=== PATIENT | female | born 1945 | race Caucasian/White ===

== ENCOUNTER → 2017-05-10 | Outpatient (CLI) | payer MEDICARE ==
--- NOTE | 2017-05-11 10:53 | MM ---
Reason for exam: screening (asymptomatic). Last mammogram was performed 1 year and 1 month ago. History: Patient is postmenopausal. Family history of breast cancer in mother at age 68. Physical Findings: A clinical breast exam by your physician is recommended on an annual basis and results should be correlated with mammographic findings. MG 3D Screening Mammo W/Cad Bilateral CC and MLO view(s) were taken. Prior study comparison: April 14, 2016, bilateral MG 3d screening mammo w/cad. March 25, 2014, bilateral MG screening mammo w CAD. No suspicious abnormality in the left breast. There is a 5mm asymmetry in the central right breast at middle depth. ASSESSMENT: Incomplete: need additional imaging evaluation, BI-RAD 0 RECOMMENDATION: Special view mammogram of the right breast. If lesion persists on supplemental views, image directed ultrasound is recommended. [facility] will attempt to contact patient to return for supplemental views and ultrasound if indicated.
== END | disposition home or self-care (01) ==
LOC: RADMAMWWP 12:54
PROVIDERS: ATTEND Family Medicine
DX: Z12.31 Encounter for screening mammogram for malignant neoplasm of breast (principal); Z80.3 Family history of malignant neoplasm of breast
CPT/HCPCS: 77063; 77067

== ENCOUNTER → 2017-05-13 | Outpatient (CLI) | payer MEDICARE ==
--- NOTE | 2017-05-13 14:09 | MM ---
Reason for exam: additional evaluation requested from abnormal screening. Last mammogram was performed less than 1 month ago. History: Patient is postmenopausal. Family history of breast cancer in mother at age 68. Physical Findings: Nurse did not find any significant physical abnormalities on exam. MG 3D Work Up W/Cad RT ML and spot compression MLO view(s) were taken of the right breast. Prior study comparison: May 10, 2017, bilateral MG 3d screening mammo w/cad. April 14, 2016, bilateral MG 3d screening mammo w/cad. There are scattered fibroglandular densities. There is no discrete abnormality. These results were verbally communicated with the patient and result sheet given to the patient on 05/13/17. ASSESSMENT: Negative, BI-RAD 1 RECOMMENDATION: Return to routine screening mammogram schedule for both breasts. Back on schedule.
== END | disposition home or self-care (01) ==
LOC: RADMAMWWP 13:19
PROVIDERS: ATTEND Family Medicine
DX: R92.8 Other abnormal and inconclusive findings on diagnostic imaging of breast (principal)
CPT/HCPCS: 77065; G0279

== ENCOUNTER → 2018-06-08 | Outpatient (CLI) | payer MEDICARE ==
--- NOTE | 2018-06-09 12:04 | MM ---
Reason for exam: screening (asymptomatic). Last mammogram was performed 1 year and 1 month ago. History: Patient is postmenopausal. Family history of breast cancer in mother at age 68. Physical Findings: A clinical breast exam by your physician is recommended on an annual basis and results should be correlated with mammographic findings. MG 3D Screening Mammo W/Cad Bilateral CC and MLO view(s) were taken. Prior study comparison: May 13, 2017, right breast MG 3d work up w/cad RT. May 10, 2017, bilateral MG 3d screening mammo w/cad. There are scattered fibroglandular densities. No significant changes when compared with prior studies. ASSESSMENT: Benign, BI-RAD 2 RECOMMENDATION: Routine screening mammogram of both breasts in 1 year.
== END | disposition home or self-care (01) ==
LOC: RADMAMWWP 12:37
PROVIDERS: ATTEND Family Medicine
DX: Z12.31 Encounter for screening mammogram for malignant neoplasm of breast (principal); Z80.3 Family history of malignant neoplasm of breast
CPT/HCPCS: 77063; 77067

== ENCOUNTER → 2019-06-11 | Outpatient (CLI) | payer MEDICARE ==
--- NOTE | 2019-06-12 10:01 | MM ---
Reason for exam: screening (asymptomatic). Last mammogram was performed 1 year ago. History: Patient is postmenopausal. Family history of breast cancer in mother at age 68. Physical Findings: A clinical breast exam by your physician is recommended on an annual basis and results should be correlated with mammographic findings. MG 3D Screening Mammo W/Cad Bilateral CC and MLO view(s) were taken. Prior study comparison: June 08, 2018, bilateral MG 3d screening mammo w/cad. May 13, 2017, right breast MG 3d work up w/cad RT. There are scattered fibroglandular densities. Finding: There is a 9 mm high density, circumscribed oval mass located 4-5 cm from the nipple in the middle position of the right breast consistent with possible cyst. ASSESSMENT: Incomplete: need additional imaging evaluation, BI-RAD 0 RECOMMENDATION: Ultrasound of the right breast. [facility] will attempt to contact patient to return for ultrasound.
== END | disposition home or self-care (01) ==
LOC: RADMAMWWP 09:24
PROVIDERS: ATTEND Family Medicine
DX: Z12.31 Encounter for screening mammogram for malignant neoplasm of breast (principal); Z80.3 Family history of malignant neoplasm of breast
CPT/HCPCS: 77063; 77067

== ENCOUNTER → 2019-06-20 | Outpatient (CLI) | payer MEDICARE ==
--- NOTE | 2019-06-20 12:07 | USB ---
Reason for exam: additional evaluation requested from abnormal screening. History: Patient is postmenopausal. Family history of breast cancer in mother at age 68. Physical Findings: Nurse did not find any significant physical abnormalities on exam. US Breast Workup Limited RT Right limited breast ultrasound including focal area of concern, retroareolar and axilla demonstrates a 0.6 x 0.9 x 0.6cm hypoechoic lesion at 3 o'clock. These results were verbally communicated with the patient and result sheet given to the patient on 06/20/19. ASSESSMENT: Suspicious, BI-RAD 4 RECOMMENDATION: Ultrasound core biopsy of the right breast. Called Dr. Vergara's office with mammographic findings and has scheduled an appointment for the patient for 08/08/19 at 4:[address] Lucas. Biopsy scheduled for 07/09/19 at 2:20. PRELIMINARY REPORT CALLED AND FAXED TO DR. LUCAS ON 06/20/19.
== END | disposition home or self-care (01) ==
LOC: RADUSWWP 10:05
PROVIDERS: ATTEND Family Medicine
DX: R92.8 Other abnormal and inconclusive findings on diagnostic imaging of breast (principal)

== ENCOUNTER → 2019-10-12 | Outpatient (CLI) | payer MEDICARE ==
[2019-10-12 13:11] VITALS: BP 143/67; PULSE 55; RESP 20; TEMP 98.6
--- NOTE | 2019-10-12 14:02 | P.GSHP ---
History of Present Illness H&P Date: 10/12/19 Chief Complaint: Abnormal mammogram and ultrasound right breast Ana is a 74-year-old white female who presents for breast evaluation for Dr. Vergara. She underwent a bilateral mammogram in May 2019 which revealed a 9 mm hyperdensity circumscribed mass 45 cm from the nipple in the midportion of the right breast. No lesions of concern were noted in the left breast. An ultrasound of the right breast was recommended and performed on 220 . This revealed a 0.9 cm hypoechoic lesion at 3:00 this was considered to be suspicious and ultrasound-guided core biopsy of the right breast was recommended. The patient herself does not complain of any lumps masses or nodules in her breast. She is not complaining of any trauma or infection in the breast. She has not had any recent nipple discharge or changes. She is not complaining of any pain in her breasts. Caffeine: tea every morning Nicotine: Negative smoking, second hand smoke: smokes Theophylline: weekly Family History: mother: breast cancer father: bowel cancer Hormonal History: menarche: 12 , breast fed: none, first born at 22 menopasue: 50 BCP: none hormones: none Surgical history: 1. Appendectomy 2. Cholecystectomy 3. Total abdominal hernia surgeries 4. Right total knee replacement Medical history: none Social History: smoke: second hand smoke alcohol: none drugs: none - Constitutional Constitutional: Denies chills, Denies fever - EENT Eyes: denies blurred vision, denies pain Ears: deny: decreased hearing, tinnitus Ears, nose, mouth and throat: Denies headache, Denies sore throat - Breasts Breasts: bilateral: as per HPI - Cardiovascular Cardiovascular: Reports high blood pressure, Denies chest pain, Denies shortness of breath - Respiratory Respiratory: Denies cough, Denies 7 - Gastrointestinal Gastrointestinal: Denies abdominal pain, Denies diarrhea, Denies nausea, Denies vomiting - Genitourinary (Female) Genitourinary: Denies dysuria, Denies hematuria - Menstruation Menstruation: Reports postmenopausal - Musculoskeletal Comment: arthritis Musculoskeletal: Denies myalgias - Integumentary Integumentary: Denies pruritus, Denies rash - Neurological Neurological: Denies numbness, Denies weakness - Psychiatric Psychiatric: Denies anxiety, Denies depression - Endocrine Endocrine: Denies fatigue, Denies weight change - Hematologic/Lymphatic Comment: aspirin - Allergic/Immunologic Allergic/Immunologic: Reports as per HPI Past Medical History Past Medical History: Hyperlipidemia, Hypertension History of Any Multi-Drug Resistant Organisms: None Reported Past Surgical History: Appendectomy, Cholecystectomy, Hernia Repair, Orthopedic Surgery Past Anesthesia/Blood Transfusion Reactions: No Reported Reaction Past Psychological History: No Psychological Hx Reported Smoking Status: Never smoker Past Alcohol Use History: None Reported Past Drug Use History: None Reported Medications and Allergies Home Medications Medication Instructions Recorded Confirmed Type Aspirin [Adult Low Dose Aspirin EC] 81 mg PO DAILY 06/22/19 10/12/19 History Atenolol [Tenormin] 25 mg PO DAILY 06/22/19 10/12/19 History Cholecalciferol [Vitamin D3 (25 5,000 unit PO DAILY 06/22/19 10/12/19 History Mcg = 1000 Iu)] Naproxen Sodium 440 mg PO DAILY 06/22/19 10/12/19 History Simvastatin [Zocor] 20 mg PO DAILY 06/22/19 10/12/19 History Allergies Allergy/AdvReac Type Severity Reaction Status Date / Time No Known Allergies Allergy Verified 10/12/19 13:06 Surgical - Exam Vital Signs Temp Pulse Resp BP Pulse Ox 98.6 F 55 L 20 143/67 98 10/12/19 13:08 10/12/19 13:08 10/12/19 13:08 10/12/19 13:08 10/12/19 13:08 BMI 46 - General obese - Eyes normal ocular movement - ENT no hearing loss, no congestion - Neck no masses, trachea midline - Respiratory normal respiratory effort, clear to auscultation - Cardiovascular Rhythm: regular Heart Sounds: normal: S1, S2 - Abdomen Abdomen: soft, non tender, bowel sounds, no guarding, no rigid, no rebound - Integumentary normal turgor - Neurologic no disoriented, no combative - Musculoskeletal uses a cane - Psychiatric oriented to time, oriented to person, oriented to place, speech is normal, memory intact breast exam: BRA: 44DD inspection: bilateral grade 3 ptosis, breast slightly larger than left breast palpation: right breast: multipositional exam fibrocystic changes, no dominant masses or nodules of concern Right axilla: No adenopathy of concern Left breast: Tattooed butterfly and the breast, multiple positional exam no dominant mastoiditis of concern, fibrocystic changes Left axilla: No adenopathy of concern Results Mammogram and ultrasound results reviewed Assessment and Plan Assessment: Impression: 1. Abnormal right breast mammogram and ultrasound 2. Fibrocystic breast changes 3. Asymmetry of breast right slightly larger than the left 4. Family history of cancer 5. Hypertension 6. BMI 46 7. Arthritis left knee/uses cane Plan: 1. Ultrasound-guided core biopsy right breast 2. Follow-up after biopsy 3. Medical management of medical conditions CC: Dr. Vergara encounter 45 minutes, > 50 % of time in planning and counselling
== END | disposition home or self-care (01) ==
LOC: WWCWWP 12:44
PROVIDERS: ATTEND Surgery
DX: Z53.9 Procedure and treatment not carried out, unspecified reason (principal)

== ENCOUNTER → 2019-10-18 | Day surgery (SDC) | payer MEDICARE ==
[2019-10-18 12:18] VITALS: RESP 18; TEMP 98.6
--- NOTE | 2019-10-18 13:52 | USB ---
EXAMINATION TYPE: US biopsy breast VAD RT DATE OF EXAM: 10/18/2019 CLINICAL HISTORY: R92.8 ABN MAMMO. TECHNIQUE: Ultrasound guided vaccuum assisted core biopsy of right breast. COMPARISON: 06/20/2019 ultrasound FINDINGS: The ultrasound guided core biopsy procedure was explained to the patient. The risks, benefits, alternatives were discussed. An informed consent was then obtained. Timeout was performed. The patient was placed in supine positioning for imaging and for the procedure. The overlying skin was prepped with betadine and sterilely draped in usual sterile fashion. Lidocaine 1% was used as anesthetic into the skin and deeper breast tissue up to area of concern in the breast. A small skin mayi was made with surgical scalpel. Under ultrasound guidance, a 12-gauge vacuum assisted biopsy device was used to obtain 5 core samples. A coil biopsy clip was left in lesion. Good hemostasis was obtained with direct pressure. Discharge instructions were discussed with the patient. The patient will follow up with the referring physician for results. Postprocedure mammogram: The patient was transferred to mammography for physician ordered post procedure mammogram for clip placement verification. The clip is in the expected region of the biopsy. The patient tolerated the procedure well without any immediate complication. The patient was discharged to home in stable condition. IMPRESSION: 1. Successful ultrasound guided biopsy right breast. Recommendations: 1. Recommendations are pending pathology results. Pathology Results: Malignant RIGHT BREAST, SITE NOT OTHERWISE SPECIFIED (CORE BIOPSY): 1. Moderately differentiated infiltrating ductal carcinoma, at least 0.6 cm. 2. Immunocytochemical Estrogen and Progesterone receptor staining: Estrogen receptor..Positive (100% of tumor nuclei stained). Progesterone receptor..Positive (100% of tumor nuclei stained). 3. HER2 analysis by IHC.Negative, 1+. Recommendation Surgical consult of the right breast. [facility]
[2019-10-18 13:54] VITALS: BP 150/82; PULSE 57
--- NOTE | 2019-10-18 14:08 | MM ---
Reason for exam: additional evaluation requested from abnormal screening. Last mammogram was performed 4 months ago. History: Patient is postmenopausal. Family history of breast cancer in mother at age 68. MG Diagnostic Mammo RT Wo CAD CC and LM view(s) were taken of the right breast. Prior study comparison: June 11, 2019, bilateral MG 3d screening mammo w/cad. June 08, 2018, bilateral MG 3d screening mammo w/cad. ASSESSMENT: Post procedure mammogram for marker placement RECOMMENDATION: Surgical consultation of the right breast.
== END ==
LOC: RADUSWWP 11:41
PROVIDERS: ATTEND Surgery
DX: C50.911 Malignant neoplasm of unspecified site of right female breast (principal); Z17.0 Estrogen receptor positive status [ER+]; Z78.0 Asymptomatic menopausal state; Z80.3 Family history of malignant neoplasm of breast
CPT/HCPCS: 77065; 19083; A4648; J2001; 88305; 88341; 88342

== ENCOUNTER → 2019-10-26 | Outpatient (CLI) | payer MEDICARE ==
[2019-10-26 11:54] VITALS: BP 144/83; PULSE 50; RESP 20; TEMP 98.6
--- NOTE | 2019-10-26 11:54 | P.PN ---
Subjective Progress Note Date: 10/26/19 Principal diagnosis: stage 1A right breast cancer Ana is a 74-year-old white female who presented for breast evaluation for Dr. Vergara. She underwent a bilateral mammogram in May 2019 which revealed a 9 mm hyperdensity circumscribed mass 45 cm from the nipple in the midportion of the right breast. No lesions of concern were noted in the left breast. An ultrasound of the right breast was recommended and performed on 220 . This revealed a 0.9 cm hypoechoic lesion at 3:00 this was considered to be suspicious and ultrasound-guided core biopsy of the right breast was recommended. The patient herself does not complain of any lumps masses or nodules in her breast. She is not complaining of any trauma or infection in the breast. She has not had any recent nipple discharge or changes. She is not complaining of any pain in her breasts. She had an ultrasound core biopsy on 10-18-19 of the right breast. This revealed a moderately differentiated infiltrating ductal carcinoma. This is ER/OH positive HER-2/rohan negative. Tumor grade was not noted. This is a stage IA right breast cancer. Caffeine: tea every morning Nicotine: Negative smoking, second hand smoke: smokes Theophylline: weekly Family History: mother: breast cancer father: bowel cancer Hormonal History: menarche: 12 , breast fed: none, first born at 22 menopasue: 50 BCP: none hormones: none Surgical history: 1. Appendectomy 2. Cholecystectomy 3. Total abdominal hernia surgeries 4. Right total knee replacement Medical history: none Social History: smoke: second hand smoke alcohol: none drugs: none - Constitutional Constitutional: Denies chills, Denies fever - EENT Eyes: denies blurred vision, denies pain Ears: deny: decreased hearing, tinnitus Ears, nose, mouth and throat: Denies headache, Denies sore throat - Breasts Breasts: bilateral: as per HPI - Cardiovascular Cardiovascular: Reports high blood pressure, Denies chest pain, Denies shortness of breath - Respiratory Respiratory: Denies cough, - Gastrointestinal Gastrointestinal: Denies abdominal pain, Denies diarrhea, Denies nausea, Denies vomiting - Genitourinary (Female) Genitourinary: Denies dysuria, Denies hematuria - Menstruation Menstruation: Reports postmenopausal - Musculoskeletal Comment: arthritis Musculoskeletal: Denies myalgias - Integumentary Integumentary: Denies pruritus, Denies rash - Neurological Neurological: Denies numbness, Denies weakness - Psychiatric Psychiatric: Denies anxiety, Denies depression - Endocrine Endocrine: Denies fatigue, Denies weight change - Hematologic/Lymphatic Comment: aspirin - Allergic/Immunologic Allergic/Immunologic: Reports as per HPI Objective - Constitutional General appearance: Present: obese - EENT Eyes: Present: EOMI ENT: Present: hearing grossly normal - Neck Neck: Present: normal ROM - Respiratory Respiratory: bilateral: CTA - Cardiovascular Rhythm: regular Heart sounds: normal: S1, S2 - Integumentary Integumentary Comment(s): No evidence of infection at biopsy site, mild ecchymosis at biopsy site right breast Integumentary: Present: normal turgor - Musculoskeletal Musculoskeletal Comment(s): uses a cane Assessment and Plan Assessment: Impression: 1. Stage IA right breast cancer 2. Fibrocystic breast changes 3. uses a cane to walk Plan: 1. Right breast localization partial mastectomy, possible adjacent tissue transfer sentinel node injection, sentinel node biopsy possible axillary node dissection 2. Medical clearance from Dr. Vergara 3. Presentation of case at tumor board We have discussed the pathology. We've discussed surgical options for the breast which range from mastectomy plus or minus reconstruction to lumpectomy. The patient would prefer a lumpectomy. Used to breasts symmetrical with the contralateral side. We will therefore plan to do the procedure without a mastopexy. Risks and benefits of procedure discussed with the patient. Include but are not limited to bleeding, infection, reaction to the anesthetic. She understands and wishes to proceed. The sentinel node biopsy risks include bleeding, infection, reaction to the anesthetic. They also include possibility of lymphedema, numbness to the inner arm, or nerve injury. Again she understands and wishes to proceed. Cc: Dr. Vergara encounter 40 minutes, > 50% of time in planning and counselling
== END | disposition home or self-care (01) ==
LOC: WWCWWP 11:16
PROVIDERS: ATTEND Surgery
DX: Z53.9 Procedure and treatment not carried out, unspecified reason (principal)

== ENCOUNTER → 2019-12-14 | Outpatient (CLI) | payer MEDICARE ==
[2019-12-14 16:07] VITALS: BP 142/82; PULSE 53; RESP 20; TEMP 98.4
--- NOTE | 2019-12-14 16:23 | P.PN ---
Subjective Progress Note Date: 12/14/19 Principal diagnosis: stage IA right breast cancer Ana is a 74-year-old white female who presented for breast evaluation for Dr. Vergara. She underwent a bilateral mammogram in May 2019 which revealed a 9 mm hyperdensity circumscribed mass 45 cm from the nipple in the midportion of the right breast. No lesions of concern were noted in the left breast. An ultrasound of the right breast was recommended and performed on . This revealed a 0.9 cm hypoechoic lesion at 3:00 this was considered to be suspicious and ultrasound-guided core biopsy of the right breast was recommended. The patient herself does not complain of any lumps masses or nodules in her breast. She is not complaining of any trauma or infection in the breast. She has not had any recent nipple discharge or changes. She is not complaining of any pain in her breasts. She had an ultrasound core biopsy on 10-18-19 of the right breast. This revealed a moderately differentiated infiltrating ductal carcinoma. This is ER/MA positive HER-2/rohan negative. Tumor grade was not noted. This is a stage IA right breast cancer. Caffeine: tea every morning Nicotine: Negative smoking, second hand smoke: smokes Theophylline: weekly Family History: mother: breast cancer father: bowel cancer Hormonal History: menarche: 12 , breast fed: none, first born at 22 menopasue: 50 BCP: none hormones: none Surgical history: 1. Appendectomy 2. Cholecystectomy 3. Total abdominal hernia surgeries 4. Right total knee replacement Medical history: none Social History: smoke: second hand smoke alcohol: none drugs: none - Constitutional Constitutional: Denies chills, Denies fever - EENT Eyes: denies blurred vision, denies pain Ears: deny: decreased hearing, tinnitus Ears, nose, mouth and throat: Denies headache, Denies sore throat - Breasts Breasts: bilateral: as per HPI - Cardiovascular Cardiovascular: Reports high blood pressure, Denies chest pain, Denies shortness of breath - Respiratory Respiratory: Denies cough, - Gastrointestinal Gastrointestinal: Denies abdominal pain, Denies diarrhea, Denies nausea, Denies vomiting - Genitourinary (Female) Genitourinary: Denies dysuria, Denies hematuria - Menstruation Menstruation: Reports postmenopausal - Musculoskeletal Comment: arthritis Musculoskeletal: Denies myalgias - Integumentary Integumentary: Denies pruritus, Denies rash - Neurological Neurological: Denies numbness, Denies weakness - Psychiatric Psychiatric: Denies anxiety, Denies depression - Endocrine Endocrine: Denies fatigue, Denies weight change - Hematologic/Lymphatic Comment: aspirin - Allergic/Immunologic Allergic/Immunologic: Reports as per HPI Objective - Vital Signs Vital signs: Vital Signs Temp 98.4 F 12/14/19 16:04 Pulse 53 L 12/14/19 16:04 Resp 20 12/14/19 16:04 BP 142/82 12/14/19 16:04 Pulse Ox 97 12/14/19 16:04 Intake & Output 12/13/19 12/14/19 12/14/19 18:59 06:59 18:59 Weight 101.605 kg - Exam BMI 46.8 - Constitutional General appearance: Present: obese - EENT Eyes: Present: EOMI ENT: Present: hearing grossly normal - Neck Neck: Present: normal ROM - Respiratory Respiratory: bilateral: CTA - Cardiovascular Rhythm: regular Heart sounds: normal: S1, S2 - Gastrointestinal General gastrointestinal: Present: normal bowel sounds, soft - Integumentary Integumentary: Present: normal turgor - Musculoskeletal Musculoskeletal: Present: gait normal - Psychiatric Psychiatric: Present: A&O x's 3, appropriate affect, intact judgment & insight - Additional findings Additional findings: breast exam: BRA 44D inspection: bilateral ptosis grade 3 Palpation: Right breast: Multi-positional exam no dominant masses or nodules of concern, fibrocystic changes Right axilla: No adenopathy of concern Left breast: Tattoo, both positional exam no dominant mass lesions of concern Left axilla: No adenopathy of concern Assessment and Plan Assessment: Impression: 1. Right breast stage IA invasive ductal carcinoma 2 BMI 46.8 Plan: 1. Needle localization excisional lumpectomy right breast, sentinel node injection sentinel node biopsy possible axillary node dissection, possible adjacent tissue transfer 2. medical clearance Dr. Vergara Risk and benefits of the procedure discussed with the patient which include bleeding infection reaction to the anesthetic possible inability to resect the area if positive margins need for reexcision. The sentinel node biopsy and possible axillary node dissection risk and benefits also discussed bleeding and infection reaction to the anesthetic possible swelling of the arm, possible decreased sensation to the upper arm, possible injury to the thoracodorsal and long thoracic nerves. Patient understands and wishes to proceed. She was not interested in the mastectomy nor referral to plastic surgery. Cc: Dr. Vergara encounter 25 minutes, > 50% of time in planning and counselling
== END | disposition home or self-care (01) ==
LOC: WWCWWP 15:39
PROVIDERS: ATTEND Surgery
DX: C50.811 Malignant neoplasm of overlapping sites of right female breast (principal)
CPT/HCPCS: 99214

== ENCOUNTER 2019-12-25 07:15 | Day surgery (SDC) | payer MEDICARE ==
[2019-12-20 13:19] VITALS: BMI 45.9
[~2019-12-25 07:15] MED LIST: HEPARIN SODIUM,PORCINE 5,000 UNIT/ML 1 ML VIAL SQ ONE; Pre Op ABX Message 1 EACH MISC MISCELLANE ONE
[2019-12-25] MEDS ORDERED: LIDOCAINE 1% (10MG/ML) FOR IV START INTRADERMA PRN (07:41)
[2019-12-25] MEDS ORDERED: LACTATED RINGERS 1,000 ML IV SCH (07:41)
[2019-12-25] MEDS ORDERED: DEXAMETHASONE SOD PHOSPHATE 10 MG/ML 1 ML VIAL IV ONE (07:41)
[2019-12-25] MEDS ORDERED: ALPRAZolam 0.25 MG TAB PO ONE (07:55)
[2019-12-25] MEDS ORDERED: ALPRAZolam 0.25 MG TAB ONE (07:55)
[2019-12-25 07:58] VITALS: RESP 16
[2019-12-25] MEDS ORDERED: HEPARIN SODIUM,PORCINE 5,000 UNIT/ML 1 ML VIAL ONE (08:48)
[2019-12-25] MEDS ORDERED: ONDANSETRON 4 MG/2 ML VIAL ONE (08:48)
[2019-12-25] MEDS ORDERED: LIDOCAINE 1% INJ 10MG/ML (20 ML MDV) SQ ONE ×2 (09:01→12:28)
--- NOTE | 2019-12-25 09:28 | NM ---
EXAMINATION TYPE: NM sentinel node injection DATE OF EXAM: 12/25/2019 COMPARISON: NONE HISTORY: Right-sided breast cancer. TECHNIQUE AND FINDINGS: The procedure of sentinel lymph node injection was explained to the patient. The benefits, alternatives, and risks were discussed. An informed consent was then obtained. Overlying skin is cleaned with sterile alcohol. Following this, 535 uCi Tc99m Tilmanocept was inject ed in the upper outer aspect of the right nipple intradermally. The patient tolerated the procedure well without any immediate complication. The patient was kept in the radiology department for short stay after the procedure and then taken to surgery for surgical p rocedure what is presumed intraoperative gamma probe will be used for sentinel lymph node detection. IMPRESSION: Right breast radiotracer injection for sentinel node localization as above.
--- NOTE | 2019-12-25 10:25 | P.NAPBC ---
NAPBC Queries - NAPBC Queries Was patient's case review presented at [facility] tumor board? If no, comment.: Yes Was patient's pathology reviewed at [facility]? If no, comment.: Yes Was breast conservation surgery offered? If no, comment.: Yes Was sentinel node biopsy offered? If no, comment.: Yes Was diagnosis confirmed by percutaneous core biopsy? If no, comment.: Yes Is patient mastectomy patient?: No Was a preop referral to reconstructive surgeon offered?: No Clinical Stage: stage IA
[2019-12-25] MEDS ORDERED: fentaNYL (PF) 50 MCG/ML 2 ML AMP ONE (10:55)
[2019-12-25] MEDS ORDERED: LIDOCAINE 1% INJ 10MG/ML (20 ML MDV) ONE (10:55)
[2019-12-25] MEDS ORDERED: PROPOFOL 10 MG/ML 20 ML VIAL IV ONE (10:55)
[2019-12-25] MEDS ORDERED: MIDAZOLAM 2 MG/2 ML VIAL ONE (10:55)
[2019-12-25] MEDS ORDERED: SUCCINYLCHOLINE CHLORIDE 100 MG/5 ML SYR IV ONE (10:55)
[2019-12-25] MEDS ORDERED: METHYLENE BLUE 10 MG/ML (10 ML VIAL) INJ ONE (12:27)
[2019-12-25] MEDS ORDERED: LACTATED RINGERS 1,000 ML IV ONE (12:56)
--- NOTE | 2019-12-25 13:11 | P.OP ---
Date of Procedure: 12/25/19 Preoperative Diagnosis: Right breast invasive ductal carcinoma located at 6 o'clock position middle depth in the breast Postoperative Diagnosis: same Procedure(s) Performed: Lymphatic mapping with methylene blue, sentinel node biopsy, lumpectomy, onco-plastic tissue transfer Anesthesia: JUSTINA Surgeon: Roxanne Becerra Estimated Blood Loss (ml): 20 IV fluids (ml): 800 Pathology: other (brest tissue) Condition: stable Disposition: same day Indications for Procedure: right breast 6 0'clock invasive ductal cancer Operative Findings: fibrofatty breast tissue, cancer at 6 oclock position Description of Procedure: The pain is a 74-year-old white female who had a percutaneous biopsy revealing invasive ductal carcinoma near the 6 o'clock position of the right breast. After discussing risk and benefits she opted for a lumpectomy and sentinel node biopsy. Preoperatively radioactive material was injected in the periareolar area and the tumor was localized. The patient was brought to the operating room and following induction of anesthesia the neoprobe was used to identify the area of increased radioactivity in the right axilla. No increased activity was identified. Therefore 5 mL of half-strength methylene blue was injected in the periareolar region and the tissue was massaged. Following this the breast was prepped and draped in a sterile fashion. The sentinel node biopsy was performed initially. An incision was made in the axillary skin at the hairbearing area. Dissection was performed down into the axillary tissue. The tissue was very fibrofatty. No radioactive nor blue lymph node was identified. A palpable node was identified and removed. Pathologic confirmation that this was a lymph node was obtained. It did not appear suspicious. After assured that hemostasis was attained the deep tissues were closed using 3-0 Vicryl suture. This was after the area had been irrigated. The skin was closed with 4-0 Monocryl and Steri-Strips applied. The area of the breast a longitudinal an incision was made and carried around the needle. Skin was removed anteriorly and posteriorly dissection was performed onto the pectoralis muscle. After this had been performed and the specimen was removed the medial area appeared to be close and additional medial and superior margins were obtained. The tissue was painted for orientation. Radiograph revealed the area of concern had been removed. Titanium clips were placed. Dissection of the breast tissue immediately released 44 cm of tissue and laterally 33 cm of tissue. A total of 77 cm of breast tissue was mobil ized. The cavity was well irrigated. The medial and lateral tissue were brought together and closed using 3-0 Vicryl suture. The skin was reapproximated using 4-0 Monocryl. The patient tolerated the procedure in stable condition. All instrument and sponge counts were correct at the end of the case. The patient tolerated the procedure in stable condition.
--- NOTE | 2019-12-25 13:12 | MM ---
EXAMINATION TYPE: MG pre op needle loc RT, MG surgical specimen RT DATE OF EXAM: 12/25/2019 COMPARISON: Prior mammogram 06/19/2019 and older mammograms. CLINICAL HISTORY: Invasive ductal carcinoma on biopsy October 18, 2019. TECHNIQUE: Needle localization with wire placement and surgical excision of area of concern in the right breast. FINDINGS: The procedure of needle localization with wire placement and than surgical excision was explained to the patient. Benefits, alternatives, and risks were discussed. An informed consent was then obtained. The shortest pathway for procedure was chosen. Shortest pathway was inferior approach. The overlying skin was prepped and draped in usual sterile fashion. Lidocaine was used as anesthetic into the skin and subcutaneous tissue up to the level of area of concern. A 5 cm needle was used. It was placed via a inferior approach under mammographic guidance. Subsequent 90 degrees mammogram show the needle to be in satisfactory position relative to the targeted area. At this point, wire was placed and the needle was withdrawn. The wire was fixed to patient's skin. Images were marked for surgeon. The patient tolerated the procedure well without any immediate complication. The patient was kept in the radiology department for short stay after the procedure and then taken to surgery for surgical excision. Targeted biopsy clip and wire are identified in specimen mammogram. The patient was kept in hospital for short stay after the procedure and then discharged home in stable condition. IMPRESSION: Successful, uncomplicated needle localization with wire placement and surgical excision of targeted clip in the right breast, full pathology results to follow. Pathology Results: Malignant A. RIGHT AXILLARY LYMPH NODE: Lymph node with partial fat replacement, negative for metastasis. B. RIGHT AXILLARY LYMPH NODE: Lymph node with partial fat replacement, negative for metastasis. C. RIGHT BREAST, LUMPECTOMY: Invasive moderately differentiated ductal carcinoma (Grade 2) and intermediate grade DCIS, margins negative for malignancy. See Surgical Pathology Cancer Case Summary. D. RIGHT AXILLARY CONTENTS: Lymph node with partial fat replacement, negative for metastasis. E. RIGHT AXILLARY LYMPH NODE: Lymph node negative for metastasis. F. RIGHT BREAST, NEW SUPERIOR MARGIN: Benign breast with fibrocystic changes. Recommendation Surgical consult of the right breast. KAREN
--- NOTE | 2019-12-25 13:13 | P.DS ---
Providers Attending physician: Roxanne Becerra Primary care physician: Chadwick Vergara Plan - Discharge Summary Discharge Rx Participant: Yes New Discharge Prescriptions: No Action Cholecalciferol [Vitamin D3 (25 Mcg = 1000 Iu)] 5,000 unit PO DAILY Aspirin [Adult Low Dose Aspirin EC] 81 mg PO DAILY Simvastatin [Zocor] 20 mg PO HS atenoloL [Tenormin] 25 mg PO DAILY Naproxen Sodium [Aleve] 440 mg PO DAILY Cannabidiol (Cbd) [Epidiolex] 1 dose PO DAILY PRN PRN Reason: Pain Discharge Medication List Aspirin [Adult Low Dose Aspirin EC] 81 mg PO DAILY 06/22/19 [History] Cholecalciferol [Vitamin D3 (25 Mcg = 1000 Iu)] 5,000 unit PO DAILY 06/22/19 [History] Simvastatin [Zocor] 20 mg PO HS 06/22/19 [History] atenoloL [Tenormin] 25 mg PO DAILY 06/22/19 [History] Cannabidiol (Cbd) [Epidiolex] 1 dose PO DAILY PRN 12/20/19 [History] Naproxen Sodium [Aleve] 440 mg PO DAILY 12/20/19 [History] Follow up Appointment(s)/Referral(s): Roxanne Becerra MD [STAFF PHYSICIAN] - 1 Week Activity/Diet/Wound Care/Special Instructions: Do not drive until seen by Dr. Florian in 1 week The shower after 48 hours Wear bra at all times unless showering Discharge Disposition: HOME SELF-CARE
[2019-12-25 13:26] VITALS: TEMP 96.9
[2019-12-25] MEDS ORDERED: KETOROLAC 15 MG/ML 1 ML VIAL IVP ONE ×2 (13:54→13:55)
[2019-12-25] MEDS ORDERED: HYDROmorphone 0.5 MG/0.5 ML SYRINGE IVP ONE (13:56)
[2019-12-25 15:23] VITALS: BP 116/68; PULSE 63
== END 2019-12-25 16:02 | disposition home or self-care (01) ==
LOC: OR 07:15
PROVIDERS: ATTEND Surgery
DX: C50.811 Malignant neoplasm of overlapping sites of right female breast (principal); I10 Essential (primary) hypertension; E78.5 Hyperlipidemia, unspecified; Z79.82 Long term (current) use of aspirin; Z79.1 Long term (current) use of non-steroidal anti-inflammatories (NSAID); Z79.899 Other long term (current) drug therapy; Z90.49 Acquired absence of other specified parts of digestive tract; Z98.890 Other specified postprocedural states; Z17.0 Estrogen receptor positive status [ER+]; Z77.22 Contact with and (suspected) exposure to environmental tobacco smoke (acute) (chronic); Z96.651 Presence of right artificial knee joint; Z68.42 Body mass index [BMI] 45.0-49.9, adult; Z80.3 Family history of malignant neoplasm of breast; Z80.0 Family history of malignant neoplasm of digestive organs
CPT/HCPCS: 88305; 88307; 76098; 19281; 38792; 19301; 38525; A9520; J2250; J1644; J1100; J2405; J2001; Q9968; J3010; J1885; J0330; J2704; J1170

== ENCOUNTER → 2020-01-03 | Outpatient (CLI) | payer MEDICARE ==
[2020-01-03 14:37] VITALS: BP 153/85; PULSE 86; RESP 20; TEMP 98.4
--- NOTE | 2020-01-03 14:49 | P.PN ---
Progress Note - Text Progress Note Date: 01/03/20 Ana is a 74-year-old white female status post right breast lumpectomy and axillary node sampling. The right breast revealed a 1.2 cm invasive ductal carcinoma grade 2 ER/[place] positive HER-2/rohan negative G2. The margins were negative. The lymph nodes were all negative for cancer. She is doing well from the surgery. Physical Exam: Lungs: Clear Heart: Regular rate and rhythm Incision: Clean and dry breast and axilla Impression/Plan: 1. Patient status post lumpectomy stage IA right breast cancer 2. Follow-up medical oncology 3. Follow-up radiation oncology 4. Follow-up here in 4 months
== END | disposition home or self-care (01) ==
LOC: WWCWWP 14:16
PROVIDERS: ATTEND Surgery
DX: Z53.9 Procedure and treatment not carried out, unspecified reason (principal)

== ENCOUNTER → 2020-01-25 | Outpatient (CLI) | payer MEDICARE ==
[2020-01-25 14:56] VITALS: BP 121/70; PULSE 58; RESP 16; TEMP 98.3
--- NOTE | 2020-01-25 15:32 | P.PN ---
Subjective Progress Note Date: 01/25/20 Principal diagnosis: Seroma drained right breast at lumpectomy site Ana is a 74-year-old white female status post right breast lumpectomy and axillary node sampling. The right breast revealed a 1.2 cm invasive ductal carcinoma grade 2 ER/[place] positive HER-2/rohan negative G2. The margins were negative. The lymph nodes were all negative for cancer. She is doing well from the surgery. She states that yesterday she noticed some drainage from the lumpectomy site. She has not had any fever or chills. She states that now at this time she has a small opening in the incision site. There is minimal drainage at this point Objective - Vital Signs Vital signs: Vital Signs Temp 98.3 F 01/25/20 14:49 Pulse 58 L 01/25/20 14:49 Resp 16 01/25/20 14:49 BP 121/70 01/25/20 14:49 Pulse Ox 97 01/25/20 14:49 Intake & Output 01/24/20 01/25/20 01/25/20 18:59 06:59 18:59 Weight 99.79 kg - Exam BMI 46 - Constitutional General appearance: Present: obese - EENT Eyes: Present: EOMI ENT: Present: hearing grossly normal - Neck Neck: Present: normal ROM - Respiratory Respiratory: bilateral: CTA - Cardiovascular Rhythm: regular Heart sounds: normal: S1, S2 - Integumentary Integumentary Comment(s): Incision and lower breast with a small opening in the midportion of the incision no further drainage at this point - Musculoskeletal Musculoskeletal Comment(s): uses a cane - Psychiatric Psychiatric: Present: A&O x's 3, appropriate affect, intact judgment & insight - Additional findings Additional findings: Breasts: Right breast: Incision and inferior aspect of breast with small opening in the mid aspect of the incision the patient has no evidence of infection it appears that there was a seroma which drained spontaneously Assessment and Plan Assessment: Impression: 1. Patient status post lumpectomy for stage IA right breast cancer 2. Spontaneous drainage of seroma 3. Small opening at incision at lumpectomy site no evidence of active infection Plan: 1. Sutures to reinforce the incision 2. Lumpectomy cavity to be packed 3. Patient to follow-up in 2 weeks CC: Dr. Vergara
--- NOTE | 2020-01-25 15:34 | P.PCN ---
Date of Procedure: 01/25/20 Preoperative Diagnosis: Seroma cavity open at lumpectomy site Postoperative Diagnosis: same Procedure(s) Performed: Irrigation seroma cavity, reinforcement of incision Description of Procedure: The area of prior lumpectomy and the right breast at the inferior aspect was prepped using Betadine. 1% lidocaine was used to anesthetize the inferior and superior portion of the incision. Several 3-0 nylon sutures were placed to rein force the incision. The area which was opened was probed. The cavity was approximately 7 x 6 x 5 cm in size. This was well irrigated. It was packed using 1 inch plain gauze. The patient tolerated the procedure in stable condition. Impression: Draining seroma via open surgical incision site Plan: Irrigation of lumpectomy site Packing of lumpectomy site Follow-up Dr. Florian next week We will attempt to get home health care
== END | disposition home or self-care (01) ==
LOC: WWCWWP 14:30
PROVIDERS: ATTEND Surgery
DX: Z53.9 Procedure and treatment not carried out, unspecified reason (principal)

== ENCOUNTER → 2020-02-07 | Outpatient (CLI) | payer MEDICARE ==
[2020-02-07 12:44] VITALS: BP 132/86; PULSE 61; RESP 12; TEMP 98.1
--- NOTE | 2020-02-07 12:59 | P.PN ---
Progress Note - Text Progress Note Date: 02/07/20 Ana is a 74-year-old white female status post right breast lumpectomy and axillary node sampling. The right breast revealed a 1.2 cm invasive ductal carcinoma grade 2 ER/[place] positive HER-2/rohan negative G2. The margins were negative. The lymph nodes were all negative for cancer. She is doing well from the surgery. She states that she noticed some drainage from the lumpectomy site. She has not had any fever or chills. She had drainage of the seroma and now has a small opening in the incision site approximately 1 cm in size in the cavity is being packed. Physical exam: Incision clean and dry Sutures which were placed to reinforce the site are removed Impression: 1. Patient status post right breast lumpectomy and axillary node sampling 2. Open mid aspect of wound 3. No evidence of any infection 4. wound packing changed today Plan: 1. Wound to be packed daily 2. follow up with radiation oncology 3. follow up here in one month CC: Dr. Vergara
== END | disposition home or self-care (01) ==
LOC: WWCWWP 12:07
PROVIDERS: ATTEND Surgery
DX: Z53.9 Procedure and treatment not carried out, unspecified reason (principal)

== ENCOUNTER → 2020-02-22 | Outpatient (CLI) | payer MEDICARE ==
--- NOTE | 2020-02-22 15:14 | P.PN ---
Progress Note - Text Progress Note Date: 02/22/20 Ana is a 74-year-old white female status post right breast lumpectomy and axillary node sampling. The right breast revealed a 1.2 cm invasive ductal carcinoma grade 2 ER/[place] positive HER-2/rohan negative G2. The margins were negative. The lymph nodes were all negative for cancer. She is doing well from the surgery. She states that she noticed some drainage from the lumpectomy site. She has not had any fever or chills. She had drainage of the seroma and now has a small opening in the incision site approximately 1 cm in size in the cavity is being packed. Physical exam: Incision clean and dry; dimensions of wounds were 5.75 cm x 4.5 cm x 2 3/4 cm medially Sutures of 3-0 nylon were placed to reinforce the site Impression: 1. Patient status post right breast lumpectomy and axillary node sampling 2. Open mid aspect of wound 3. No evidence of any infection 4. wound packing changed today Plan: 1. Wound to be packed daily 2. follow up with radiation oncology 3. follow up here in three weeks
[2020-02-22 16:17] VITALS: BP 127/79; PULSE 51; RESP 20; TEMP 97.9
== END | disposition home or self-care (01) ==
LOC: WWCWWP 13:53
PROVIDERS: ATTEND Surgery
DX: Z53.9 Procedure and treatment not carried out, unspecified reason (principal)

== ENCOUNTER → 2020-03-13 | Outpatient (CLI) | payer MEDICARE ==
[2020-03-13 14:15] VITALS: BP 148/70; PULSE 58; RESP 18; TEMP 98
--- NOTE | 2020-03-13 14:23 | P.PN ---
Progress Note - Text Progress Note Date: 03/13/20 Ana is a 74-year-old white female status post right breast lumpectomy and axillary node sampling on 12-25-19. The right breast revealed a 1.2 cm invasive ductal carcinoma grade 2 ER/DC positive HER-2/rohan negative G2. The margins were negative. The lymph nodes were all negative for cancer. She is doing well from the surgery. She states that she had noticed some drainage from the lumpectomy site. She has not had any fever or chills. She had drainage of the seroma and then had a small opening in the incision site approximately 1 cm in size leading to a cavity which is now being packed. Physical exam: lungs: clear heart: S1 S2 noted Incision clean and dry; dimensions of wounds were 5.75cm x 4.5 cm x 2 3/4 cm medially; this is now 4.5cm by 2cm, by 1 cm Sutures of 3-0 nylon were removed Impression: 1. Patient status post right breast lumpectomy and axillary node sampling 2. Open mid aspect of wound 3. No evidence of any infection 4. wound packing changed today Plan: 1. Wound to be packed daily 2. follow up with radiation oncology 3. follow up here in one month
== END | disposition home or self-care (01) ==
LOC: WWCWWP 13:59
PROVIDERS: ATTEND Surgery
DX: Z53.9 Procedure and treatment not carried out, unspecified reason (principal)

== ENCOUNTER → 2020-04-03 | Outpatient (CLI) | payer MEDICARE ==
[2020-04-03 11:49] VITALS: BP 127/83; PULSE 49; RESP 18; TEMP 97.9
--- NOTE | 2020-04-03 12:18 | P.PN ---
Progress Note - Text Progress Note Date: 04/03/20 Ana is a 74-year-old white female status post right breast lumpectomy and axillary node sampling on 12-25-19. The right breast revealed a 1.2 cm invasive ductal carcinoma grade 2 ER/[place] positive HER-2/rohan negative G2. The margins were negative. The lymph nodes were all negative for cancer. She is doing well from the surgery. She states that she had noticed some drainage from the lumpectomy site. She has not had any fever or chills. She had drainage of the seroma and then had a small opening in the incision site approximately 1 cm in size leading to a cavity which is now being packed. Physical exam: lungs: clear heart: S1 S2 noted Incision clean and dry; dimensions of wounds were 5.75cm x 4.5 cm x 2 3/4 cm medially; this now 3.5 cm medially by 3 cm superiorly, the lateral and inferior margins are almost completely granulated in Impression: 1. Patient status post right breast lumpectomy and axillary node sampling 2. Open mid aspect of wound 3. No evidence of any infection 4. wound packing changed today Plan: 1. Wound to be packed daily 2. follow up with radiation oncology 3. follow up here in 6 weeks CC: DR. Vergara
== END | disposition home or self-care (01) ==
LOC: WWCWWP 11:27
PROVIDERS: ATTEND Surgery
DX: Z53.9 Procedure and treatment not carried out, unspecified reason (principal)

== ENCOUNTER 2020-05-13 20:20 | Emergency (ER) | payer MEDICARE ==
[2020-05-13 20:42] VITALS: RESP 18
[2020-05-13] MEDS ORDERED: SODIUM CHLORIDE 0.9% 500 ML 500 ML IV STA ×2 (20:44→21:50)
--- NOTE | 2020-05-13 20:51 | ED ---
General Adult HPI - General Chief complaint: Weakness Stated complaint: light-headed Time Seen by Provider: 05/13/20 20:26 Source: patient Mode of arrival: ambulatory Limitations: no limitations - History of Present Illness Initial comments: Patient is a 74-year-old female with history of hypertension, presenting to the emergency department via EMS with complaints of multiple small "lightheaded episodes" that happened in the last few hours. Patient states she woke up this morning feeling her normal self, ate breakfast. Patient states this evening when she was trying to eat dinner she developed some mild nausea and had no appetite. Patient has also been having these "episodes" of lightheadedness that only lasts a few seconds, she describes it as "overtaking her whole body." She denies the room spinning, she denies any paresthesias, she denies any pain anywhere, no chest pain or shortness of breath. She denies dysuria. She denies any recent fever or chills. She denies any abdominal pain, no vomiting. She denies any recent falls or trauma. She is currently having a home health nurse once a week for a recent lumpectomy on her right breast, she states this has been healing well after initial distant he and. She has an appointment with Dr. Megha Becerra in 2 days for a 6 week checkup. She denies any dysuria. She has no further complaints at this time. Upon arrival to the ER, her vital signs are stable. - Related Data Home Medications Medication Instructions Recorded Confirmed Aspirin [Adult Low Dose Aspirin EC] 81 mg PO HS 06/22/19 05/13/20 Simvastatin [Zocor] 20 mg PO HS 06/22/19 05/13/20 Naproxen Sodium [Aleve] 220 mg PO DAILY 12/20/19 05/13/20 Atenolol/Chlorthalidone 1 tab PO DAILY 05/13/20 05/13/20 [Atenolol-Chlorthalidone 100-25] Cholecalciferol (Vitamin D3) 125 mcg PO HS 05/13/20 05/13/20 [Vitamin D3 (5000 Iu)] Previous Rx's Medication Instructions Recorded Cephalexin [Keflex] 500 mg PO BID 7 Days #14 cap 05/13/20 Allergies Allergy/AdvReac Type Severity Reaction Status Date / Time No Known Allergies Allergy Verified 05/13/20 21:04 Review of Systems ROS Statement: Those systems with pertinent positive or pertinent negative responses have been documented in the HPI. ROS Other: All systems not noted in ROS Statement are negative. Past Medical History Past Medical History: Hyperlipidemia, Hypertension Additional Past Medical History / Comment(s): rt breast cancer; History of Any Multi-Drug Resistant Organisms: None Reported Past Surgical History: Appendectomy, Cholecystectomy, Hernia Repair, Orthopedic Surgery Additional Past Surgical History / Comment(s): right total knee 2011 Past Anesthesia/Blood Transfusion Reactions: No Reported Reaction Past Psychological History: No Psychological Hx Reported Smoking Status: Never smoker Past Alcohol Use History: None Reported Past Drug Use History: None Reported - Past Family History Mother Family Medical History: Cancer Additional Family Medical History / Comment(s): breast CA Father Family Medical History: Cancer Additional Family Medical History / Comment(s): scrotal CA General Exam - General Exam Comments Initial Comments: GENERAL: Patient is well-developed and well-nourished. Patient is nontoxic and in no acute distress. HEAD: Atraumatic, normocephalic. EYES: Pupils equal round and reactive to light, extraocular movements intact, sclera anicteric, conjunctiva are normal. Eyelids were unremarkable. ENT: TMs normal, nares patent, oropharynx clear without exudates. Moist mucous membranes. NECK: Normal range of motion, supple without lymphadenopathy or JVD. LUNGS: Unlabored respirations. Breath sounds clear to auscultation bilaterally and equal. No wheezes rales or rhonchi. HEART: Regular rate and rhythm without murmurs, rubs or gallops. ABDOMEN: Soft, nontender, normoactive bowel sounds. No guarding, no rebound. No masses appreciated. : Deferred MUSCULOSKELETAL: Normal extremities with adequate strength and normal range of motion, no pitting or edema. No clubbing or cyanosis. NEUROLOGICAL: Patient is alert and oriented x 3. Motor and sensory are also intact. Cranial nerves II through XII grossly intact. Symmetrical smile. Normal speech, normal gait. PSYCH: Normal mood, normal affect. SKIN: Warm, Dry, normal turgor, no rashes or lesions noted. Limitations: no limitations Course Vital Signs 05/13/20 20:37 Temperature 98.9 F Pulse Rate 76 Respiratory 18 Rate Blood Pressure 141/64 O2 Sat by Pulse 96 Oximetry EKG Findings - EKG Comments: EKG Findings:: Normal sinus rhythm, nonspecific ST and T-wave abnormalities, no signs of acute ischemia. Ventricular rate 76, WA interval 182, QTC 414. Medical Decision Making - Medical Decision Making Patient is a 74-year-old female with history of hypertension presenting for lightheadedness, mild nausea. Her vital signs are stable upon arrival. She denies any chest pain no shortness of breath, no fevers. Her EKG shows no acute process. Chest x-ray is normal. Labs show a normal white count, lactic acid is slightly elevated at 2.1, troponin was normal, glucose is normal at 119. Urine does show a large amount of bacteria and wbc's. Urine culture pending. She was given a total of 1 L of fluids, 1 g of Rocephin in the ER. Patient states she is feeling well and wishes to go home. She's had no more lightheadedness spells, she walked without assistance to the restroom and back. I will continue patient on Keflex for UTI. She will follow up with her PCP. She is in agreement this plan of care. She stable for discharge. Case discussed Dr. Montes De Oca. - Lab Data Result diagrams: 05/13/20 21:13 05/13/20 21:13 Lab Results 05/13/20 05/13/20 05/13/20 Range/Units 21:02 21:13 21:13 WBC 9.2 (3.8-10.6) k/uL RBC 4.78 (3.80-5.40) m/uL Hgb 15.7 (11.4-16.0) gm/dL Hct 44.4 (34.0-46.0) % MCV 92.9 (80.0-100.0) fL MCH 32.8 (25.0-35.0) pg MCHC 35.3 (31.0-37.0) g/dL RDW 12.7 (11.5-15.5) % Plt Count 235 (150-450) k/uL MPV 6.8 Neutrophils % 72 % Lymphocytes % 16 % Monocytes % 8 % Eosinophils % 1 % Basophils % 1 % Neutrophils # 6.6 (1.3-7.7) k/uL Lymphocytes # 1.4 (1.0-4.8) k/uL Monocytes # 0.8 (0-1.0) k/uL Eosinophils # 0.1 (0-0.7) k/uL Basophils # 0.1 (0-0.2) k/uL PT 10.2 (9.0-12.0) sec INR 0.9 (<1.2) APTT 21.6 L (22.0-30.0) sec Sodium (137-145) mmol/L Potassium (3.5-5.1) mmol/L Chloride (98-107) mmol/L Carbon Dioxide (22-30) mmol/L Anion Gap mmol/L BUN (7-17) mg/dL Creatinine (0.52-1.04) mg/dL Est GFR (CKD-EPI)AfAm (>60 ml/min/1.73 sqM) Est GFR (CKD-EPI)NonAf (>60 ml/min/1.73 sqM) Glucose (74-99) mg/dL Plasma Lactic Acid Rinku (0.7-2.0) mmol/L Calcium (8.4-10.2) mg/dL Magnesium (1.6-2.3) mg/dL Total Bilirubin (0.2-1.3) mg/dL AST (14-36) U/L ALT (4-34) U/L Alkaline Phosphatase (38-126) U/L Troponin I (0.000-0.034) ng/mL Total Protein (6.3-8.2) g/dL Albumin (3.5-5.0) g/dL Urine Color Light Yellow Urine Appearance Cloudy H (Clear) Urine pH 6.0 (5.0-8.0) Ur Specific [place] 1.007 (1.001-1.035) Urine Protein Trace H (Negative) Urine Glucose (UA) Negative (Negative) Urine Ketones Negative (Negative) Urine Blood Large H (Negative) Urine Nitrite Negative (Negative) Urine Bilirubin Negative (Negative) Urine Urobilinogen <2.0 (<2.0) mg/dL Ur Leukocyte Esterase Large H (Negative) Urine RBC 24 H (0-5) /hpf Urine WBC 144 H (0-5) /hpf Urine Bacteria Occasional H (None) /hpf Urine Mucus Rare H (None) /hpf 05/13/20 05/13/20 05/13/20 Range/Units 21:13 21:13 21:13 WBC (3.8-10.6) k/uL RBC (3.80-5.40) m/uL Hgb (11.4-16.0) gm/dL Hct (34.0-46.0) % MCV (80.0-100.0) fL MCH (25.0-35.0) pg MCHC (31.0-37.0) g/dL RDW (11.5-15.5) % Plt Count (150-450) k/uL MPV Neutrophils % % Lymphocytes % % Monocytes % % Eosinophils % % Basophils % % Neutrophils # (1.3-7.7) k/uL Lymphocytes # (1.0-4.8) k/uL Monocytes # (0-1.0) k/uL Eosinophils # (0-0.7) k/uL Basophils # (0-0.2) k/uL PT (9.0-12.0) sec INR (<1.2) APTT (22.0-30.0) sec Sodium 138 (137-145) mmol/L Potassium 3.4 L (3.5-5.1) mmol/L Chloride 105 (98-107) mmol/L Carbon Dioxide 23 (22-30) mmol/L Anion Gap 10 mmol/L BUN 20 H (7-17) mg/dL Creatinine 0.68 (0.52-1.04) mg/dL Est GFR (CKD-EPI)AfAm >90 (>60 ml/min/1.73 sqM) Est GFR (CKD-EPI)NonAf 86 (>60 ml/min/1.73 sqM) Glucose 119 H (74-99) mg/dL Plasma Lactic Acid Rinku 2.1 H* (0.7-2.0) mmol/L Calcium 9.8 (8.4-10.2) mg/dL Magnesium 1.7 (1.6-2.3) mg/dL Total Bilirubin 0.9 (0.2-1.3) mg/dL AST 67 H (14-36) U/L ALT 48 H (4-34) U/L Alkaline Phosphatase 68 (38-126) U/L Troponin I <0.012 (0.000-0.034) ng/mL Total Protein 7.2 (6.3-8.2) g/dL Albumin 4.1 (3.5-5.0) g/dL Urine Color Urine Appearance (Clear) Urine pH (5.0-8.0) Ur Specific [place] (1.001-1.035) Urine Protein (Negative) Urine Glucose (UA) (Negative) Urine Ketones (Negative) Urine Blood (Negative) Urine Nitrite (Negative) Urine Bilirubin (Negative) Urine Urobilinogen (<2.0) mg/dL Ur Leukocyte Esterase (Negative) Urine RBC (0-5) /hpf Urine WBC (0-5) /hpf Urine Bacteria (None) /hpf Urine Mucus (None) /hpf Disposition Clinical Impression: Dehydration, UTI (urinary tract infection) Disposition: HOME SELF-CARE Condition: Stable Instructions (If sedation given, give patient instructions): Urinary Tract Infection in Women (ED) Additional Instructions: Please return to the Emergency Department if symptoms worsen or any other concerns. Make sure to take antibiotics as prescribed, finish entire course. Please follow-up with your regular physician. Prescriptions: Cephalexin [Keflex] 500 mg PO BID 7 Days #14 cap Is patient prescribed a controlled substance at d/c from ED?: No Referrals: Chadwick Vergara MD [Primary Care Provider] - 1-2 days
[2020-05-13 21:28] LABS: Basophils # (A) 0.1 k/uL (0-0.2); Basophils % (A) 1 %; Eosinophils # (A) 0.1 k/uL (0-0.7); Eosinophils % (A) 1 %; HCT 44.4 % (34.0-46.0); HGB 15.7 gm/dL (11.4-16.0); Lymphocytes # (A) 1.4 k/uL (1.0-4.8); Lymphocytes % (A) 16 %; MCH 32.8 pg (25.0-35.0); MCHC 35.3 g/dL (31.0-37.0); MCV 92.9 fL (80.0-100.0); Mean Platelet Volume 6.8; Monocytes # (A) 0.8 k/uL (0-1.0); Monocytes % (A) 8 %; Neutrophils # (A) 6.6 k/uL (1.3-7.7); Neutrophils % (A) 72 %; Platelet Count 235 k/uL (150-450); RBC 4.78 m/uL (3.80-5.40); RDW 12.7 % (11.5-15.5); WBC 9.2 k/uL (3.8-10.6)
--- NOTE | 2020-05-13 21:33 | XR ---
EXAMINATION TYPE: XR chest 2V DATE OF EXAM: 05/13/2020 COMPARISON: NONE HISTORY: Weakness TECHNIQUE: 2 views FINDINGS: Heart and mediastinum are normal. Lungs are clear. Diaphragm is normal. There are chest pratibha ds. Bony thorax is intact. IMPRESSION: Normal chest. Normal heart.
[2020-05-13 21:37] LABS: ALT 48 U/L (4-34); AST 67 U/L (14-36); African American GFR (CKD) >90 (>60 ml/min/1.73 sqM); Albumin 4.1 g/dL (3.5-5.0); Alkaline Phosphatase 68 U/L (38-126); Anion Gap 10 mmol/L; Blood Urea Nitrogen 20 mg/dL (7-17); Calcium 9.8 mg/dL (8.4-10.2); Carbon Dioxide 23 mmol/L (22-30); Chloride 105 mmol/L (98-107); Glucose 119 mg/dL (74-99); Magnesium 1.7 mg/dL (1.6-2.3); Non-African American GFR(CKD) 86 (>60 ml/min/1.73 sqM); Sodium 138 mmol/L (137-145); Total Bilirubin 0.9 mg/dL (0.2-1.3); Total Protein 7.2 g/dL (6.3-8.2)
[2020-05-13 21:39] LABS: Potassium 3.4 mmol/L (3.5-5.1)
[2020-05-13 21:39] LABS: Appearance,Urine Cloudy (Clear); Bacteria,Urine Occasional /hpf; Bilirubin,Urine Negative (Negative); Blood,Urine Large (Negative); Color,Urine Light Yellow; Glucose,Urine (UA) Negative (Negative); Ketones,Urine Negative (Negative); Leukocyte Esterase,Urine Large (Negative); Mucus,Urine Rare /hpf; Nitrite,Urine Negative (Negative); Protein,Urine Trace (Negative); RBC,Urine 24 /hpf (0-5); Specific Gravity,Urine 1.007 (1.001-1.035); Urobilinogen,Urine <2.0 mg/dL (<2.0); WBC,Urine 144 /hpf (0-5)
[2020-05-13 21:50] LABS: INR 0.9 (<1.2); Prothrombin Time 10.2 sec (9.0-12.0)
[2020-05-13 22:01] LABS: Partial Thromboplastin Time 21.6 sec (22.0-30.0)
[2020-05-13] MEDS ORDERED: cefTRIAXone IN SWFI 1,000 MG/10 ML SYRINGE IVP STA (22:07)
[2020-05-13 23:01] VITALS: BP 136/80; PULSE 75; TEMP 98.2
== END 2020-05-13 23:00 | disposition home or self-care (01) ==
LOC: EC 20:20
DX: N39.0 Urinary tract infection, site not specified (principal); E86.0 Dehydration; I10 Essential (primary) hypertension; E78.5 Hyperlipidemia, unspecified; Z79.82 Long term (current) use of aspirin; Z79.899 Other long term (current) drug therapy; Z85.3 Personal history of malignant neoplasm of breast
CPT/HCPCS: 36415; 93005; 80053; 83605; 83735; 84484; 85025; 85610; 85730; 81001; 87086; 71046; 99285; 96374; 96361; J0696

== ENCOUNTER → 2020-05-15 | Outpatient (CLI) | payer MEDICARE ==
--- NOTE | 2020-05-15 13:48 | P.PN ---
Progress Note - Text Progress Note Date: 05/15/20 Ana is a 74-year-old white female status post right breast lumpectomy and axillary node sampling on 12-25-19. The right breast revealed a 1.2 cm invasive ductal carcinoma grade 2 ER/[place] positive HER-2/rohan negative G2. The margins were negative. The lymph nodes were all negative for cancer. She is doing well from the surgery. She states that she had noticed some drainage from the lumpectomy site. She has not had any fever or chills. She had drainage of the seroma and then had a small opening in the incision site approximately 1 cm in size leading to a cavity which is now being packed. The wound has decreased in size. The patient recently was diagnosed with a urinary tract infection in the emergency room and is presently on Keflex for the urinary tract infection. Physical exam: lungs: clear heart: S1 S2 noted Incision clean and dry; dimensions of wounds were 5.75cm x 4.5 cm x 2 3/4 cm medially; this now 3.5 cm medially by 3 cm superiorly, the lateral and inferior margins were almost completely granulated in as of 04-03-20. The wound at this time is 2.5 by 2 cm. No evidence of any infection. Impression: 1. Patient status post right breast lumpectomy and axillary node sampling 2. Open mid aspect of wound 3. No evidence of any infection 4. wound packing changed today Plan: 1. Wound to be packed daily 2. follow up with radiation oncology 3. follow up here in 6 weeks CC: DR. Vergara
[2020-05-15 13:49] VITALS: BP 151/81; PULSE 75; RESP 18; TEMP 98.4
== END | disposition home or self-care (01) ==
LOC: WWCWWP 13:34
PROVIDERS: ATTEND Surgery
DX: Z53.9 Procedure and treatment not carried out, unspecified reason (principal)

== ENCOUNTER → 2020-06-26 | Outpatient (CLI) | payer MEDICARE ==
[2020-06-26 12:54] VITALS: BP 150/85; PULSE 50; RESP 20; TEMP 97.7
--- NOTE | 2020-06-26 13:19 | P.PN ---
Progress Note - Text Progress Note Date: 06/26/20 Ana is a 74-year-old white female status post right breast lumpectomy and axillary node sampling on 12-25-19. The right breast revealed a 1.2 cm invasive ductal carcinoma grade 2 ER/[place] positive HER-2/rohan negative G2. The margins were negative. The lymph nodes were all negative for cancer. She is doing well from the surgery. She states that she had noticed some drainage from the lumpectomy site. She had not had any fever or chills. She had drainage of the seroma and then had a small opening in the incision site approximately 1 cm in size leading to a cavity which is now being packed. The wound has decreased in size. The patient recently was diagnosed with a urinary tract infection in the emergency room and was treated with Keflex for the urinary tract infection. Physical exam: lungs: clear heart: S1 S2 noted 02-22-20 Incision clean and dry; dimensions of wounds were 5.75cm x 4.5 cm x 2 3/4 cm medially; 03-13-20 wound 4.5 cm by 2 cm by 1 cm 04-03-20. The wound at that time is was 3.5 by 3 cm. No evidence of any infection. 05-15-20 2.5 by 2 06-26-20 Patient is now approximately 3 cm deep but is very approximately 1 cm wide and 1 cm high. Impression: 1. Patient status post right breast lumpectomy and axillary node sampling 2. Open mid aspect of wound 3. No evidence of any infection 4. wound packing changed today Plan: Continue wound care with follow-up in 1 month
== END | disposition home or self-care (01) ==
LOC: WWCWWP 12:19
PROVIDERS: ATTEND Surgery
DX: Z48.01 Encounter for change or removal of surgical wound dressing (principal); Z98.890 Other specified postprocedural states

== ENCOUNTER → 2020-07-24 | Outpatient (CLI) | payer MEDICARE ==
[2020-07-24 14:25] VITALS: BP 152/84; PULSE 58; RESP 20; TEMP 98.4
--- NOTE | 2020-07-24 14:47 | P.PN ---
Subjective Progress Note Date: 07/24/20 Principal diagnosis: right breast cancer; wound at lumpectomy site stage IA right breast cancer Ana is a 74-year-old white female who presented for breast evaluation for Dr. Vergara. She underwent a bilateral mammogram in May 2019 which revealed a 9 mm hyperdensity circumscribed mass 45 cm from the nipple in the midportion of the right breast. No lesions of concern were noted in the left breast. An ultrasound of the right breast was recommended and performed on . This revealed a 0.9 cm hypoechoic lesion at 3:00 this was considered to be suspicious and ultrasound-guided core biopsy of the right breast was recommended. The patient herself does not complain of any lumps masses or nodules in her breast. She is not complaining of any trauma or infection in the breast. She has not had any recent nipple discharge or changes. She is not complaining of any pain in her breasts. She had an ultrasound core biopsy on 10-18-19 of the right breast. This revealed a moderately differentiated infiltrating ductal carcinoma. This is ER/[place] positive HER-2/rohan negative. Tumor grade was not noted. This is a stage IA right breast cancer. Tumor size 12mm, Nodes (-), ER 100%+, TN 100%+, Her 2-. She is status post right breast lumpectomy and axillary node sampling on 9119. The right breast revealed a 1.2 cm invasive ductal carcinoma grade 2 ER/TN positive HER-2/rohan negative G2. The margins were negative. The lymph nodes were all negative for cancer. She is doing well after surgery. She states that she had noticed some increased drainage from the lumpectomy site. She has not had any fever or chills. She had drainage of seroma and a small opening in the incision site. The opening was approximately 1 cm in size however this led to a cavity which is being packed at this time. The cavity has decreased in size. She has been seeing postprocedure for packing of the wound. Her has been packing the wound at home. She has been started on letrozole on July 01, she is having hot flashes. The following were noted: [id number] incision clean and dry, dimensions of wound 5.75 cm x 4.5 cm x 2.75 cm [id number] wound 4.5 cm x 2 cm x 1 cm 486336.5 cm x 3 cm 120 121 2.5 cm x 2 cm 3421 3 cm x 1 cm 4-1-21 wound 2 cm by 1 cm; changed to aqucel silver rope packing At this time her states that the wound is very small opening however they're concerned about the depth. Her last bilateral mammogram was in 2019. Patient has a history of arthritis and has recently had an exacerbation of pain in her right foot. Caffeine: tea every morning Nicotine: Negative smoking, second hand smoke: smokes Theophylline: weekly Family History: mother: breast cancer father: bowel cancer Hormonal History: menarche: 12 , breast fed: none, first born at 22 menopasue: 50 BCP: none hormones: none Surgical history: 1. Appendectomy 2. Cholecystectomy 3. Total abdominal hernia surgeries 4. Right total knee replacement Medical history: none Social History: smoke: second hand smoke alcohol: none drugs: none - Constitutional Constitutional: Denies chills, Denies fever - EENT Eyes: denies blurred vision, denies pain Ears: deny: decreased hearing, tinnitus Ears, nose, mouth and throat: Denies headache, Denies sore throat - Breasts Breasts: bilateral: as per HPI - Cardiovascular Cardiovascular: Reports high blood pressure, Denies chest pain, Denies shortness of breath - Respiratory Respiratory: Denies cough, - Gastrointestinal Gastrointestinal: Denies abdominal pain, Denies diarrhea, Denies nausea, Denies vomiting - Genitourinary (Female) Genitourinary: Denies dysuria, Denies hematuria - Menstruation Menstruation: Reports postmenopausal - Musculoskeletal Comment: arthritis Musculoskeletal: Denies myalgias - Integumentary Integumentary: Denies pruritus, Denies rash - Neurological Neurological: Denies numbness, Denies weakness - Psychiatric Psychiatric: Denies anxiety, Denies depression - Endocrine Endocrine: Denies fatigue, Denies weight change - Hematologic/Lymphatic Comment: aspirin - Allergic/Immunologic Allergic/Immunologic: Reports as per HPI Objective - Exam BMI 41.8 - Constitutional General appearance: Present: cooperative - EENT Eyes: Present: EOMI ENT: Present: hearing grossly normal - Neck Neck: Present: normal ROM - Respiratory Respiratory: bilateral: CTA - Cardiovascular Rhythm: regular Heart sounds: normal: S1, S2 - Integumentary Integumentary Comment(s): opening 8 mm in incision left breast,no evidence of infection - Musculoskeletal Musculoskeletal Comment(s): using a wheel chair - Psychiatric Psychiatric: Present: A&O x's 3 - Additional findings Additional findings: right breast: incision clean and dry opening about 8 mm, depth of wound 2 cm no evidnece of infection Assessment and Plan Assessment: Impression: 1. status post right breast lumpectomy and SNB 2. patient on Letrazole 3. Wound right breast healing well no infection 4. due for left breast mammogram Plan: 1. Dressing change performed ; change packing to Aquacel silver rope (discussed with and showed him how to do this) 2. Continue letrazole 3. Left breast mammogram 4. Follow-up after mammogram 5. Appointment with radiation oncology approximately 6 weeks from now CC: Dr. Vergara Encounter 35 minutes, time spent in reviewing medical records, physical examination, and counseling.
== END ==
LOC: WWCWWP 13:29
PROVIDERS: ATTEND Surgery
DX: Z08 Encounter for follow-up examination after completed treatment for malignant neoplasm (principal); Z85.3 Personal history of malignant neoplasm of breast; S21.001D Unspecified open wound of right breast, subsequent encounter; Z80.3 Family history of malignant neoplasm of breast; F17.210 Nicotine dependence, cigarettes, uncomplicated

== ENCOUNTER → 2020-08-22 | Outpatient (CLI) | payer MEDICARE ==
[2020-08-22 16:13] VITALS: BP 146/75; PULSE 60; RESP 18; TEMP 98.8
--- NOTE | 2020-08-22 16:44 | P.PN ---
Progress Note - Text Progress Note Date: 08/22/20 right breast cancer; wound at lumpectomy site stage IA right breast cancer Ana is a 74-year-old white female who presented for breast evaluation for Dr. Vergara. She underwent a bilateral mammogram in May 2019 which revealed a 9 mm hyperdensity circumscribed mass 45 cm from the nipple in the midportion of the right breast. No lesions of concern were noted in the left breast. An ultrasound of the right breast was recommended and performed on . This revealed a 0.9 cm hypoechoic lesion at 3:00 this was considered to be suspicious and ultrasound-guided core biopsy of the right breast was recommended. The patient herself does not complain of any lumps masses or nodules in her breast. She is not complaining of any trauma or infection in the breast. She has not had any recent nipple discharge or changes. She is not complaining of any pain in her breasts. She had an ultrasound core biopsy on 10-18-19 of the right breast. This revealed a moderately differentiated infiltrating ductal carcinoma. This is ER/CT positive HER-2/rohan negative. Tumor grade was not noted. This is a stage IA right breast cancer. Tumor size 12mm, Nodes (-), ER 100%+, CT 100%+, Her 2-. She is status post right breast lumpectomy and axillary node sampling on 9119. The right breast revealed a 1.2 cm invasive ductal carcinoma grade 2 ER/CT positive HER-2/rohan negative G2. The margins were negative. The lymph nodes were all negative for cancer. She is doing well after surgery. She states that she had noticed some increased drainage from the lumpectomy site. She has not had any fever or chills. She had drainage of seroma and a small opening in the incision site. The opening was approximately 1 cm in size however this led to a cavity which is being packed at this time. The cavity has decreased in size. She has been seeing postprocedure for packing of the wound. Her has been packing the wound at home. She has been started on letrozole on July 01, she is having hot flashes. The following were noted: [id number] incision clean and dry, dimensions of wound 5.75 cm x 4.5 cm x 2.75 cm [id number] wound 4.5 cm x 2 cm x 1 cm 242072.5 cm x 3 cm 120 121 2.5 cm x 2 cm 3421 3 cm x 1 cm 07-24-20 wound 2 cm by 1 cm; changed to aqucel silver rope packing 08-22-20 wound 1.5 cm deep, by 5mm by 6mm, changed packing again to iodoform gauze Her last bilateral mammogram was in 2019. Will obtain her Oncotype results. The patient is considering declining rad iation therapy. Plan: Follow up in one month
== END ==
LOC: WWCWWP 15:50
PROVIDERS: ATTEND Surgery
DX: C50.911 Malignant neoplasm of unspecified site of right female breast (principal); Z17.0 Estrogen receptor positive status [ER+]; Z98.890 Other specified postprocedural states

== ENCOUNTER → 2020-10-03 | Outpatient (CLI) | payer MEDICARE ==
[2020-10-03 15:18] VITALS: BP 154/76; PULSE 61; RESP 16; TEMP 98.2
--- NOTE | 2020-10-03 15:29 | P.PN ---
Progress Note - Text Progress Note Date: 10/03/20 stage IA right breast cancer Ana is a 75-year-old white female who presented for breast evaluation for Dr. Vergara. She underwent a bilateral mammogram in May 2019 which revealed a 9 mm hyperdensity circumscribed mass 45 cm from the nipple in the midportion of the right breast. No lesions of concern were noted in the left breast. An ultrasound of the right breast was recommended and performed on . This revealed a 0.9 cm hypoechoic lesion at 3:00 this was considered to be suspicious and ultrasound-guided core biopsy of the right breast was recommended. The patient herself does not complain of any lumps masses or nodules in her breast. She is not complaining of any trauma or infection in the breast. She has not had any recent nipple discharge or changes. She is not complaining of any pain in her breasts. She had an ultrasound core biopsy on 10-18-19 of the right breast. This revealed a moderately differentiated infiltrating ductal carcinoma. This is ER/[place] positive HER-2/rohan negative. Tumor grade was not noted. This is a stage IA right breast cancer. Tumor size 12mm, Nodes (-), ER 100%+, [place] 100%+, Her 2-. She is status post right breast lumpectomy and axillary node sampling on 9119. The right breast revealed a 1.2 cm invasive ductal carcinoma grade 2 ER/[place] positive HER-2/rohan negative G2. The margins were negative. The lymph nodes were all negative for cancer. She is doing well after surgery. She states that she had noticed some increased drainage from the lumpectomy site. She has not had any fever or chills. She had drainage of seroma and a small opening in the incision site. The opening was approximately 1 cm in size however this led to a cavity which is being packed at this time. The cavity has decreased in size. She has been seeing postprocedure for packing of the wound. Her has been packing the wound at home. She has been started on letrozole on July 01, she is having hot flashes. The following were noted: [id number] incision clean and dry, dimensions of wound 5.75 cm x 4.5 cm x 2.75 cm [id number] wound 4.5 cm x 2 cm x 1 cm 456054.5 cm x 3 cm 120 121 2.5 cm x 2 cm 3421 3 cm x 1 cm 07-24-20 wound 2 cm by 1 cm; changed to aqucel silver rope packing 08-22-20 wound 1.5 cm deep, by 5mm by 6mm, changed packing again to iodoform gauze 10-03-20 depth 1.2 cm Her last bilateral mammogram was in 2019, she is scheduled for a bilateral mammogram 10-13-20 appointment with wound clinic nurse Will obtain her Oncotype results. The patient is considering declining radiation therapy. CC: Dr. Vergara
== END ==
LOC: WWCWWP 14:50
PROVIDERS: ATTEND Surgery
DX: C50.911 Malignant neoplasm of unspecified site of right female breast (principal); Z98.890 Other specified postprocedural states; Z17.0 Estrogen receptor positive status [ER+]

== ENCOUNTER → 2020-10-13 | Outpatient (CLI) | payer MEDICARE ==
--- NOTE | 2020-10-14 08:32 | MM ---
Reason for exam: additional evaluation requested from prior study. Last mammogram was performed 1 year ago. History: Patient is postmenopausal and has history of breast cancer at age 74. Family history of breast cancer in mother at age 68. Malignant MG pre op needle loc RT of the right breast, December 25, 2019. Lumpectomy of the right breast, December 25, 2019. Malignant US biopsy breast VAD RT of the right breast, October 18, 2019. Taking antineoplastic for 3 months beginning at age 74. Physical Findings: Nurse did not find any significant physical abnormalities on exam. MG 3D Diag Mammo W/Cad LT CC and MLO view(s) were taken of the left breast. Prior study comparison: June 11, 2019, bilateral MG 3d screening mammo w/cad. June 08, 2018, bilateral MG 3d screening mammo w/cad. There are scattered fibroglandular densities. Right breast not imaged due to wound. Imaging can be performed when patient is able. Ultrasound could be performed if there is an area of clinical concern. These results were verbally communicated with the patient and result sheet given to the patient on 10/13/20. ASSESSMENT: Negative, BI-RAD 1 RECOMMENDATION: Follow-up diagnostic mammogram. Right breast to be imaged as determined by breast surgeon. Manage patient on a clinical basis.
== END | disposition home or self-care (01) ==
LOC: RADMAMWWP 14:45
PROVIDERS: ATTEND Surgery
DX: N64.89 Other specified disorders of breast (principal); Z78.0 Asymptomatic menopausal state; Z80.3 Family history of malignant neoplasm of breast; Z85.3 Personal history of malignant neoplasm of breast
CPT/HCPCS: 77065; G0279; 77061

== ENCOUNTER → 2020-11-12 | Outpatient (CLI) | payer MEDICARE ==
--- NOTE | 2020-11-12 14:06 | MM ---
Reason for exam: additional evaluation requested from prior study. Last mammogram was performed 1 month ago. History: Patient is postmenopausal and has history of breast cancer at age 74. Family history of breast cancer in mother at age 68. Malignant MG pre op needle loc RT of the right breast, December 25, 2019. Lumpectomy of the right breast, December 25, 2019. Malignant US biopsy breast VAD RT of the right breast, October 18, 2019. Taking antineoplastic for 3 months beginning at age 75. Physical Findings: Nurse did not find any significant physical abnormalities on exam. MG 3D Diag Mammo W/Cad RT CC and MLO view(s) were taken of the right breast. Prior study comparison: October 18, 2019, right breast MG diagnostic mammo RT wo CAD. June 11, 2019, bilateral MG 3d screening mammo w/cad. There are scattered fibroglandular densities. Post opertive changes. These results were verbally communicated with the patient and result sheet given to the patient on 11/12/20. ASSESSMENT: Benign, BI-RAD 2 RECOMMENDATION: Follow-up diagnostic mammogram of both breasts in 11 months. Back on schedule for September 2021.
== END | disposition home or self-care (01) ==
LOC: RADMAMWWP 12:53
PROVIDERS: ATTEND Surgery
DX: N64.89 Other specified disorders of breast (principal); Z78.0 Asymptomatic menopausal state; Z80.3 Family history of malignant neoplasm of breast; Z85.3 Personal history of malignant neoplasm of breast
CPT/HCPCS: 77065; G0279; 77061

== ENCOUNTER → 2020-11-21 | Outpatient (CLI) | payer MEDICARE ==
[2020-11-21 10:12] VITALS: BP 168/80; PULSE 58; RESP 18; TEMP 98.1
--- NOTE | 2020-11-21 10:33 | P.PN ---
Subjective Progress Note Date: 11/21/20 Principal diagnosis: Stage I a right breast cancer Ana is a 75-year-old white female who is status post right breast lumpectomy and sentinel node biopsy on 12/25/2019. 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 The margins were negative. The lymph nodes were all negative for cancer. Postprocedure she developed an open wound and has had this area packed until approximately 3 weeks ago. She has going to follow with radiation oncology on November 27. She has followed with medical oncology and is presently on Femara. She had a recent left breast mammogram performed on 107 121 this was benign BIRADS 1. She had a right breast mammogram performed on 613 121 this was benign BIRADS 2. She will be due for bilateral mammogram in 1 year. She is not concerned about any new lumps masses or nodules in either breast. Family history: Mother: Breast cancer at 68 Father: Colon cancer Hormonal history: Menarche: 12 , breast fed;no, age at first : 22 menopause: 50 Surgical history: Right breast lumpectomy/sentinel node biopsy Cholecystectomy Appendectomy right knee replacement Hernia repair Medical history: High cholesterol Hypertension Social history: Smoke: Negative Alcohol: Negative Drugs: Negative Systems: HEENT: cataract Heart: none lungs: none GI: none : none Musculoskeletal: Arthritis Psychiatric: Negative ALLERGIES: Negative Hematologic: baby aspirin daily Objective - Vital Signs Vital signs: Vital Signs Temp 98.1 F 11/21/20 10:07 Pulse 58 L 11/21/20 10:07 Resp 18 11/21/20 10:07 BP 168/80 11/21/20 10:07 Pulse Ox 94 L 11/21/20 10:07 Intake & Output 11/20/20 11/21/20 11/21/20 18:59 06:59 18:59 Weight 90.718 kg - Exam BMI 41.8 - Constitutional General appearance: Present: cooperative - EENT Eyes: Present: EOMI ENT: Present: hearing grossly normal - Neck Neck: Present: normal ROM - Respiratory Respiratory: bilateral: CTA - Cardiovascular Heart sounds: normal: S1, S2 - Gastrointestinal General gastrointestinal: Present: soft - Integumentary Integumentary: Present: normal turgor - Psychiatric Psychiatric: Present: A&O x's 3, appropriate affect, intact judgment & insight - Additional findings Additional findings: Breast Exam: BRA: 44DD Inspection: Scarring right breast related to prior lumpectomy completely healed at this time Palpation: Right breast: Multiple positional exam no dominant masses or nodules of concern, well-healed scar no evidence of any infection Right axilla: No adenopathy of concern Left breast: Multi-positional exam no dominant masses or nodules of concern Left axilla: No adenopathy of concern Assessment and Plan Assessment: Impression: 1. Stage I right breast cancer no evidence of recurrence 2. Patient on Femara 3. Patient meeting with radiation oncology next month 4. Hypertension 5. High cholesterol No evidence of any recurrent cancer at this time recent bilateral mammogram benign Plan: 1. Repeat bilateral mammogram in September 2021 2. Follow appears 6 months for breast examination 3. Continue Femara 4. Appointment with radiation oncology CC: Dr. Vergara
== END ==
LOC: WWCWWP 09:55
PROVIDERS: ATTEND Surgery
DX: Z08 Encounter for follow-up examination after completed treatment for malignant neoplasm (principal); I10 Essential (primary) hypertension; E78.00 Pure hypercholesterolemia, unspecified; Z79.811 Long term (current) use of aromatase inhibitors; Z85.3 Personal history of malignant neoplasm of breast; Z98.890 Other specified postprocedural states

== ENCOUNTER → 2021-01-15 | Outpatient (CLI) | payer MEDICARE ==
--- NOTE | 2021-01-15 11:36 | BD ---
EXAMINATION TYPE: Axial Bone Density DATE OF EXAM: 01/15/2021 COMPARISON: 03.17.2012 CLINICAL HISTORY: 75 YR OLD FEMALE.....ICD-10 CODE: Z79.890 MENOPAUSAL Height: 58.2 Weight: 224 FRAX RISK QUESTIONS: Family History (Parent hip fracture): YES RISK FACTORS HISTORY OF: NO FX OVER AGE 40 YRS OLD Family History of Osteoporosis: YES, HER GRANDMOTHER, MULTIPLE FXS AND BROKEN HIPS Postmenopausal woman: YES, AT AGE 50 YRS OLD Lost more than 2 inches in height since high school: YES Frequent falls: YES, CANE Hyperparathyroidism: NO Adrenal Insufficiency: NO MEDICATIONS: Additional Medications: BP MEDS, STATIN FOR CHOLESTEROL, VIT D3 5000 UNITS, ASPIRIN FOR BLOOD, TAMOXI FEN Additional History: HX OF RT BREAST CANCER, 2020, HYPERTENSION, CHOLESTEROL, RT TOTAL KNEE, ARTHRITI S EXAM MEASUREMENTS: Bone mineral densitometry was performed using the [employer] System. Bone mineral density as measured about the Lumbar spine is: ----- L1-L4(G/cm2): 1.337 T Score Values are as follows: ----- L1: 1.4 ----- L2: 1.1 ----- L3: 0.5 ----- L4: 2.0 ----- L1-L4: 1.3 Bone mineral density has: Decreased -1.6% since study of: 03.17.2012 Bone mineral density about the R hip (g/cm2): 1.122 Bone mineral density about the L hip (g/cm2): 1.025 T Score values are as follows: -----R Neck: 0.1 -----L Neck: -0.9 -----R Total: 0.9 -----L Total: 0.1 Bone mineral density has: Decreased -1.5% since study of: 03.17.2012 FRAX%s: THERE IS A 12.2% CHANCE FOR A MAJOR OSTEOPOROTIC FX AND A 4.6% FOR HIP......PROBABILITY FO R FX IN 10 YRS TIME IMPRESSION: Normal (Values between +1 and -1 indicate normal bone mass). Consider repeating this study in 5 year s or sooner if there is some new clinical indication. NOTE: T-SCORE=SD OF THE YOUNG ADULT MEAN.
== END | disposition home or self-care (01) ==
LOC: RADBDWWP 09:38
PROVIDERS: ATTEND Internal Medicine Hematology & Oncology
DX: Z78.0 Asymptomatic menopausal state (principal); Z79.890 Hormone replacement therapy; Z85.3 Personal history of malignant neoplasm of breast
CPT/HCPCS: 77080

== ENCOUNTER 2021-05-07 20:21 | Inpatient (IN) | payer MEDICARE ==
[2021-05-07 21:50] LABS: Basophils % (A) 1 %; Eosinophils # (A) 0.2 k/uL (0-0.7); Eosinophils % (A) 2 %; HCT 46.2 % (34.0-46.0); HGB 15.1 gm/dL (11.4-16.0); Lymphocytes # (A) 1.4 k/uL (1.0-4.8); Lymphocytes % (A) 20 %; MCH 31.5 pg (25.0-35.0); MCHC 32.8 g/dL (31.0-37.0); MCV 96.2 fL (80.0-100.0); Mean Platelet Volume 6.9; Monocytes # (A) 0.4 k/uL (0-1.0); Monocytes % (A) 6 %; Neutrophils # (A) 4.7 k/uL (1.3-7.7); Neutrophils % (A) 68 %; Platelet Count 214 k/uL (150-450); RDW 13.7 % (11.5-15.5)
[2021-05-07 22:02] LABS: Magnesium 1.7 mg/dL (1.6-2.3); Potassium 3.7 mmol/L (3.5-5.1); Total Bilirubin 0.8 mg/dL (0.2-1.3); Total Protein 7.1 g/dL (6.3-8.2)
[2021-05-07 22:14] LABS: Partial Thromboplastin Time 23.1 sec (22.0-30.0); Prothrombin Time 10.4 sec (9.0-12.0)
--- NOTE | 2021-05-07 22:47 | XR ---
EXAMINATION TYPE: XR chest 2V DATE OF EXAM: 05/07/2021 COMPARISON: 05/13/2020 HISTORY: Difficulty breathing TECHNIQUE: FINDINGS: Heart and mediastinum are normal. Lungs are clear. Diaphragm is normal. Bony thorax appears intact. IMPRESSION: Oval chest. No change.
--- NOTE | 2021-05-07 23:25 | CT ---
EXAMINATION TYPE: CT chest angio for PE DATE OF EXAM: 05/07/2021 COMPARISON: None HISTORY: elevated d-dimer CT DLP: 556.4 mGycm Automated exposure control for dose reduction was used. CONTRAST: Performed with IV Contrast, patient injected with 70 mL of Isovue 370. Images obtained from the thoracic inlet to the diaphragm without IV contrast. There are Three-D postp rocessed images. The lungs are clear of consolidation. There is no pleural effusion. There is no evidence of a pulmona ry mass. Heart size is normal. There is no mediastinal adenopathy. There are no hilar masses. There are multiple large filling defects in the left and right pulmonary arteries bilaterally. These extending mainly into the lower lobes. There is also involvement left upper lobe pulmonary artery. The thoracic spine is intact. There is no compression fracture. There is degenerative spurring in the thoracic spine. Sternum is intact. IMPRESSION: Multiple large bilateral pulmonary emboli. No evidence of right heart strain. This exam was discussed with emergency room attending staff at 11:30 PM.
[2021-05-07] MEDS ORDERED: HEPARIN SODIUM 1,000 UN/ML (10ML VL) IV PRN (23:27)
[2021-05-07] MEDS ORDERED: HEPARIN SODIUM 1,000 UN/ML (10ML VL) IV ONE (23:27)
[2021-05-07] MEDS ORDERED: NALOXONE 0.4 MG/ML 1 ML VIAL IV PRN (23:47)
--- NOTE | 2021-05-07 23:52 | ED ---
General Adult HPI - General Chief complaint: Shortness of Breath Stated complaint: SOB Time Seen by Provider: 05/07/21 20:36 Source: patient, EMS Mode of arrival: EMS - History of Present Illness Initial comments: 75 year-old female patient presents to the emergency department for evaluation of progressively worsening dyspnea over the last 2-3 weeks. States that dyspnea is present with exertion only. Today she was unable to walk 15-20 feet without significant distress. States that it takes a while of rest to recover. She denies any chest pain or tightness. Denies pain or swelling to the lower extremities. Denies cough, congestion, fever, or chills. Denies dark, black, or bloody stools. Denies any history of smoking or COPD. She did have right sided lumpectomy and is on hormonal breast cancer treatment since June 2020. She did receive 3 COVID vaccines including booster. She does not wear oxygen or have any diagnosed lung conditions. Denies history of heart failure. Denies history of DVT or PE. She takes a daily baby aspirin. Patient denies any recent rash, fever, chills, abdominal pain, nausea, vomiting, diarrhea, constipation, back pain, numbness, tingling, dizziness, weakness, hematuria, dysuria, urinary urgency, urinary frequency, headache, visual changes, or any other complaints. - Related Data Home Medications Medication Instructions Recorded Confirmed Aspirin [Adult Low Dose Aspirin EC] 81 mg PO HS 06/22/19 05/07/21 Simvastatin [Zocor] 20 mg PO HS 06/22/19 05/07/21 Naproxen Sodium [Aleve] 440 mg PO DAILY 12/20/19 05/07/21 Atenolol/Chlorthalidone 1 tab PO DAILY 05/13/20 05/07/21 [Atenolol-Chlorthalidone 100-25] Cholecalciferol (Vitamin D3) 125 mcg PO HS 05/13/20 05/07/21 [Vitamin D3 (5000 Iu)] Letrozole [Femara] 2.5 mg PO DAILY 07/24/20 05/07/21 Allergies Allergy/AdvReac Type Severity Reaction Status Date / Time No Known Allergies Allergy Verified 05/07/21 21:09 Review of Systems ROS Statement: Those systems with pertinent positive or pertinent negative responses have been documented in the HPI. ROS Other: All systems not noted in ROS Statement are negative. Past Medical History Past Medical History: Hyperlipidemia, Hypertension Additional Past Medical History / Comment(s): rt breast cancer; History of Any Multi-Drug Resistant Organisms: None Reported Past Surgical History: Appendectomy, Cholecystectomy, Hernia Repair, Orthopedic Surgery Additional Past Surgical History / Comment(s): right total knee 2011 Past Anesthesia/Blood Transfusion Reactions: No Reported Reaction Past Psychological History: No Psychological Hx Reported Smoking Status: Never smoker Past Alcohol Use History: None Reported Past Drug Use History: None Reported - Past Family History Mother Family Medical History: Cancer Additional Family Medical History / Comment(s): breast CA Father Family Medical History: Cancer Additional Family Medical History / Comment(s): scrotal CA General Exam General appearance: alert, in no apparent distress, other (This is a well- developed, well-nourished adult female in no acute distress.) ENT exam: Present: normal exam, normal oropharynx, mucous membranes moist Respiratory exam: Present: normal lung sounds bilaterally. Absent: respiratory distress, wheezes, rales, rhonchi, stridor Cardiovascular Exam: Present: regular rate, normal rhythm, normal heart sounds. Absent: systolic murmur, diastolic murmur, rubs, gallop, clicks GI/Abdominal exam: Present: soft, normal bowel sounds. Absent: distended, tenderness, guarding, rebound, rigid Extremities exam: Present: normal inspection, full ROM, normal capillary refill, other (Skin to the lower trauma is is pink, warm, dry. Cap refill less than 3 seconds. Pedal and posttibial pulses 2+. No lower extremity edema. No calf tenderness.). Absent: tenderness, pedal edema, joint swelling, calf tenderness Neurological exam: Present: alert, oriented X3, CN II-XII intact Psychiatric exam: Present: normal affect, normal mood Skin exam: Present: warm, dry, intact, normal color. Absent: rash Course Vital Signs 05/07/21 20:24 Temperature 98.6 F Pulse Rate 78 Respiratory 18 Rate Blood Pressure 162/87 O2 Sat by Pulse 96 Oximetry EKG Findings - EKG Comments: EKG Findings:: EKG obtained at 2058 shows normal sinus rhythm with a ventricular 78, ND interval 172, QRS duration 110, QTC 400, QTC 456. No evidence of ST elevation or depression. Procedures - [place] Protocol (Time Out) Nurse: Wilian Sewell Medical Decision Making - Medical Decision Making 75-year-old female patient with past medical history significant for breast cancer currently on hormonal breast cancer therapy presents to the emergency department today for evaluation of increased dyspnea over the last 3 weeks. Dyspnea is exertional. Physical examination did reveal clear equal lung sounds. No lower extremity edema. She is afebrile. 96% on 2 L. Labs reviewed and revealed normal white blood cell count. D-dimer 8.71. Troponin 0.058. COVID-19 negative. EKG showed sinus rhythm with no ST changes. Chest x-ray was negative. CT chest angiography was performed and did show multiple bilateral pulmonary embolisms. She was started on high-dose heparin. Did consult vascular surgeon who recommended echocardiogram in the morning. Agreed with current plan for heparin. I did discuss findings and results with the patient and her family. She is agreeable to admission. My attending is Dr. Case. - Lab Data Result diagrams: 05/07/21 21:38 05/07/21 21:38 Lab Results 05/07/21 05/07/21 05/07/21 Range/Units 21:38 21:38 21:38 WBC 7.0 (3.8-10.6) k/uL RBC 4.80 (3.80-5.40) m/uL Hgb 15.1 (11.4-16.0) gm/dL Hct 46.2 H (34.0-46.0) % MCV 96.2 (80.0-100.0) fL MCH 31.5 (25.0-35.0) pg MCHC 32.8 (31.0-37.0) g/dL RDW 13.7 (11.5-15.5) % Plt Count 214 (150-450) k/uL MPV 6.9 Neutrophils % 68 % Lymphocytes % 20 % Monocytes % 6 % Eosinophils % 2 % Basophils % 1 % Neutrophils # 4.7 (1.3-7.7) k/uL Lymphocytes # 1.4 (1.0-4.8) k/uL Monocytes # 0.4 (0-1.0) k/uL Eosinophils # 0.2 (0-0.7) k/uL Basophils # 0.0 (0-0.2) k/uL PT 10.4 (9.0-12.0) sec INR 1.0 (<1.2) APTT 23.1 (22.0-30.0) sec D-Dimer 8.71 H (<0.60) mg/L FEU Sodium 140 (137-145) mmol/L Potassium 3.7 (3.5-5.1) mmol/L Chloride 107 (98-107) mmol/L Carbon Dioxide 24 (22-30) mmol/L Anion Gap 9 mmol/L BUN 27 H (7-17) mg/dL Creatinine 0.79 (0.52-1.04) mg/dL Est GFR (CKD-EPI)AfAm 85 (>60 ml/min/1.73 sqM) Est GFR (CKD-EPI)NonAf 74 (>60 ml/min/1.73 sqM) Glucose 199 H (74-99) mg/dL Plasma Lactic Acid Rinku (0.7-2.0) mmol/L Calcium 10.0 (8.4-10.2) mg/dL Magnesium 1.7 (1.6-2.3) mg/dL Total Bilirubin 0.8 (0.2-1.3) mg/dL AST 30 (14-36) U/L ALT 25 (4-34) U/L Alkaline Phosphatase 108 (38-126) U/L Troponin I (0.000-0.034) ng/mL NT-Pro-B Natriuret Pep pg/mL Total Protein 7.1 (6.3-8.2) g/dL Albumin 4.0 (3.5-5.0) g/dL Coronavirus (PCR) (Not Detectd) 05/07/21 05/07/21 05/07/21 Range/Units 21:38 21:38 21:38 WBC (3.8-10.6) k/uL RBC (3.80-5.40) m/uL Hgb (11.4-16.0) gm/dL Hct (34.0-46.0) % MCV (80.0-100.0) fL MCH (25.0-35.0) pg MCHC (31.0-37.0) g/dL RDW (11.5-15.5) % Plt Count (150-450) k/uL MPV Neutrophils % % Lymphocytes % % Monocytes % % Eosinophils % % Basophils % % Neutrophils # (1.3-7.7) k/uL Lymphocytes # (1.0-4.8) k/uL Monocytes # (0-1.0) k/uL Eosinophils # (0-0.7) k/uL Basophils # (0-0.2) k/uL PT (9.0-12.0) sec INR (<1.2) APTT (22.0-30.0) sec D-Dimer (<0.60) mg/L FEU Sodium (137-145) mmol/L Potassium (3.5-5.1) mmol/L Chloride (98-107) mmol/L Carbon Dioxide (22-30) mmol/L Anion Gap mmol/L BUN (7-17) mg/dL Creatinine (0.52-1.04) mg/dL Est GFR (CKD-EPI)AfAm (>60 ml/min/1.73 sqM) Est GFR (CKD-EPI)NonAf (>60 ml/min/1.73 sqM) Glucose (74-99) mg/dL Plasma Lactic Acid Rinku 1.2 (0.7-2.0) mmol/L Calcium (8.4-10.2) mg/dL Magnesium (1.6-2.3) mg/dL Total Bilirubin (0.2-1.3) mg/dL AST (14-36) U/L ALT (4-34) U/L Alkaline Phosphatase (38-126) U/L Troponin I 0.058 H* (0.000-0.034) ng/mL NT-Pro-B Natriuret Pep 62 pg/mL Total Protein (6.3-8.2) g/dL Albumin (3.5-5.0) g/dL Coronavirus (PCR) (Not Detectd) 05/07/21 Range/Units 21:38 WBC (3.8-10.6) k/uL RBC (3.80-5.40) m/uL Hgb (11.4-16.0) gm/dL Hct (34.0-46.0) % MCV (80.0-100.0) fL MCH (25.0-35.0) pg MCHC (31.0-37.0) g/dL RDW (11.5-15.5) % Plt Count (150-450) k/uL MPV Neutrophils % % Lymphocytes % % Monocytes % % Eosinophils % % Basophils % % Neutrophils # (1.3-7.7) k/uL Lymphocytes # (1.0-4.8) k/uL Monocytes # (0-1.0) k/uL Eosinophils # (0-0.7) k/uL Basophils # (0-0.2) k/uL PT (9.0-12.0) sec INR (<1.2) APTT (22.0-30.0) sec D-Dimer (<0.60) mg/L FEU Sodium (137-145) mmol/L Potassium (3.5-5.1) mmol/L Chloride (98-107) mmol/L Carbon Dioxide (22-30) mmol/L Anion Gap mmol/L BUN (7-17) mg/dL Creatinine (0.52-1.04) mg/dL Est GFR (CKD-EPI)AfAm (>60 ml/min/1.73 sqM) Est GFR (CKD-EPI)NonAf (>60 ml/min/1.73 sqM) Glucose (74-99) mg/dL Plasma Lactic Acid Rinku (0.7-2.0) mmol/L Calcium (8.4-10.2) mg/dL Magnesium (1.6-2.3) mg/dL Total Bilirubin (0.2-1.3) mg/dL AST (14-36) U/L ALT (4-34) U/L Alkaline Phosphatase (38-126) U/L Troponin I (0.000-0.034) ng/mL NT-Pro-B Natriuret Pep pg/mL Total Protein (6.3-8.2) g/dL Albumin (3.5-5.0) g/dL Coronavirus (PCR) Not Detected (Not Detectd) - Radiology Data Radiology results: report reviewed, image reviewed Two-view x-ray of the chest is obtained. Report was reviewed in its entirety. Impression by Dr. Hamlin shows normal chest. No change. CT chest angiography for pulmonary embolism was obtained. Report was reviewed in its entirety. Impression by Dr. Hamlin shows multiple large bilateral pulmonary emboli. No evidence of right heart strain. Disposition Clinical Impression: Bilateral pulmonary embolism Disposition: ADMITTED IP TO THIS [facility] Condition: Serious Decision to Admit Reason: Admit from EC Decision Date: 05/07/21 Decision Time: 23:52
[2021-05-07] MEDS: HEPARIN SOD,PORK IN 0.45% NACL 25,000 UNIT in 0.45% NACL 1 250ML.BAG IV SCH (23:54)
[2021-05-07] MEDS: SODIUM CHLORIDE 0.9% 1,000 ML IV SCH (23:56)
[2021-05-08 05:52] LABS: Basophils % (A) 0 %; Eosinophils # (A) 0.2 k/uL (0-0.7); Eosinophils % (A) 3 %; HGB 14.3 gm/dL (11.4-16.0); Lymphocytes # (A) 2.7 k/uL (1.0-4.8); Lymphocytes % (A) 36 %; MCH 31.1 pg (25.0-35.0); MCHC 33.1 g/dL (31.0-37.0); Mean Platelet Volume 7.2; Monocytes # (A) 0.5 k/uL (0-1.0); Monocytes % (A) 7 %; Neutrophils # (A) 3.8 k/uL (1.3-7.7); Neutrophils % (A) 51 %; Platelet Count 209 k/uL (150-450); RBC 4.58 m/uL (3.80-5.40); RDW 13.1 % (11.5-15.5); WBC 7.4 k/uL (3.8-10.6)
--- NOTE | 2021-05-08 09:28 | ECHOF ---
Referral Reason:Bilateral PE MEASUREMENTS -------- HEIGHT: 149.9 cm WEIGHT: 97.5 kg BP: 152/84 IVSd: 1.6 cm (0.6 - 1.1) LVIDd: 4.0 cm (3.9 - 5.3) LVPWd: 1.2 cm (0.6 - 1.1) IVSs: 2.1 cm LVIDs: 2.3 cm LVPWs: 2.1 cm LAESV Index (A-L): 20.37 ml/m Ao Diam: 3.1 cm (2.0 - 3.7) AV Cusp: 2.3 cm (1.5 - 2.6) LA Diam: 3.6 cm (2.7 - 3.8) MV E Ever: 0.68 m/s MV DecT: 163 ms MV A Ever: 1.27 m/s MV E/A Ratio: 0.54 RAP: 5.00 mmHg RVSP: 47.13 mmHg FINDINGS -------- Sinus rhythm. This was a technically difficult study with suboptimal views. The left ventricular size is normal. There is moderate concentric left ventricular hypertrophy. O verall left ventricular systolic function is normal with, an EF between 55 - 60 %. The diastolic fi lling pattern is normal for the age of the patient 16.46. The RV was not well visualized. Normal LA size by volume 22+/-6 ml/m2. The right atrium was not well visualized. 3.0mg of Lumason was utilized for enhancement of images Interatrial and interventricular septum intact. There is no evidence of aortic regurgitation. There is no evidence of aortic stenosis. No mitral regurgitation. Moderate tricuspid regurgitation present. There is moderate pulmonary hypertension. The right samantha tricular systolic pressure, as measured by Doppler, is 47.13mmHg. The pulmonic valve was not well visualized. The aortic root size is normal. IVC Not well visulized. There is no pericardial effusion. CONCLUSIONS -------- 1. The left ventricular size is normal. 2. There is moderate concentric left ventricular hypertrophy. 3. Overall left ventricular systolic function is normal with, an EF between 55 - 60 %. 4. Moderate tricuspid regurgitation present. 5. There is moderate pulmonary hypertension. 6. The right ventricular systolic pressure, as measured by Doppler, is 47.13mmHg. TRAFFIC DIRECTOR: Susannah Emery RDCS
--- NOTE | 2021-05-08 10:30 | US ---
EXAMINATION TYPE: US venous doppler duplex LE DATE OF EXAM: 05/08/2021 10:01 AM COMPARISON: NONE CLINICAL HISTORY: PE. EC patient just diagnosed with bilateral PE. On IV heparin. SIDE PERFORMED: Bilateral TECHNIQUE: The lower extremity deep venous system is examined utilizing real time linear array sonog kash with graded compression, doppler sonography and color-flow sonography. VESSELS IMAGED: Common Femoral Vein Deep Femoral Vein Greater Saphenous Vein * Femoral Vein Popliteal Vein Small Saphenous Vein * Proximal Calf Veins (* superficial vessels) Limited due to patient body habitus Right Leg: Negative for DVT Left Leg: POSITIVE for DVT from CFV to Proximal calf veins. Complete occlusion from distal femoral vein to proximal calf veins. IMPRESSION: 1. Deep venous thrombosis left lower extremity extends from the calf to the common femoral vein.
--- NOTE | 2021-05-08 10:54 | P.GSCN ---
History of Present Illness Consult date: 05/08/21 Reason for Consult: Bilateral pulmonary emboli Requesting physician: Fernanda Tomlinson History of present illness: This is a 75-year-old female patient who presented to the emergency department for evaluation of dyspnea on exertion. Patient states she has had these symptoms for last 2-3 weeks duration but progressively got worse over the last couple days and she was unable to walk more than 15-20 feet without significant distress. She is a history of hyperlipidemia and hypertension, as well as right breast cancer. On admission patient had elevated d-dimer, elevated troponins 3, [place] virus PCR not detected. CT angiogram of chest shows multiple large bilateral pulmonary emboli. No evidence of right heart strain. Echocardiogram shows moderate concentric left ventricular hypertrophy, EF between 55 and 60%. RV was not well-visualized, moderate tricuspid regurgitation present, moderate pulmonary hypertension, right ventricular systolic pressure 47.13 mmHg. The patient states her breathing is better while she is lying down. Still short of breath with exertion. She states that she has been having a sedentary lifestyle stenosis culprit. No recent travel. No recent surgery. She denies any pre vious history of DVT or PE, denies any history of clotting disorder or family history of clotting disorder. She's denying any chest pain, cough, fever, nausea or vomiting. Review of Systems 14 point review of systems was completed all pertinent positives and negatives as stated in HPI Past Medical History Past Medical History: Hyperlipidemia, Hypertension Additional Past Medical History / Comment(s): rt breast cancer; History of Any Multi-Drug Resistant Organisms: None Reported Past Surgical History: Appendectomy, Cholecystectomy, Hernia Repair, Orthopedic Surgery Additional Past Surgical History / Comment(s): right total knee 2011 Past Anesthesia/Blood Transfusion Reactions: No Reported Reaction Past Psychological History: No Psychological Hx Reported Smoking Status: Never smoker Past Alcohol Use History: None Reported Past Drug Use History: None Reported - Past Family History Mother Family Medical History: Cancer Additional Family Medical History / Comment(s): breast CA Father Family Medical History: Cancer Additional Family Medical History / Comment(s): scrotal CA Medications and Allergies Home Medications Medication Instructions Recorded Confirmed Type Aspirin [Adult Low Dose Aspirin EC] 81 mg PO HS 06/22/19 05/07/21 History Simvastatin [Zocor] 20 mg PO HS 06/22/19 05/07/21 History Naproxen Sodium [Aleve] 440 mg PO DAILY 12/20/19 05/07/21 History Atenolol/Chlorthalidone 1 tab PO DAILY 05/13/20 05/07/21 History [Atenolol-Chlorthalidone 100-25] Cholecalciferol (Vitamin D3) 125 mcg PO HS 05/13/20 05/07/21 History [Vitamin D3 (5000 Iu)] Letrozole [Femara] 2.5 mg PO DAILY 07/24/20 05/07/21 History Allergies Allergy/AdvReac Type Severity Reaction Status Date / Time No Known Allergies Allergy Verified 05/07/21 21:09 Surgical - Exam Vital Signs Temp Pulse Resp BP Pulse Ox 98.6 F 78 18 162/87 96 05/07/21 20:24 05/07/21 20:24 05/07/21 20:24 05/07/21 20:24 05/07/21 20:24 General appearance: The patient is alert, oriented, appears in no acute distress. HET: Head is normocephalic and atraumatic. Neck: Supple without lymphadenopathy. Trachea midline. Heart: S1 S2. Regular rate and rhythm. Lungs: Equal air entry. Clear to auscultation. No crackles or wheezes are heard. Abdomen: Soft, nontender, nondistended. Extremities: Normal skin color and turgor. No cyanosis, rash, ulceration, clubbing, or edema. Radial and pedal pulses are 2/4 bilaterally. Neurological: No focal deficits. Alert and oriented 3. Results - Labs 05/08/21 05:29 05/07/21 21:38 Abnormal Lab Results - Last 24 Hours (Table) 05/07/21 05/07/21 05/07/21 Range/Units 21:38 21:38 21:38 Hct 46.2 H (34.0-46.0) % APTT (22.0-30.0) sec D-Dimer 8.71 H (<0.60) mg/L FEU BUN 27 H (7-17) mg/dL Glucose 199 H (74-99) mg/dL Troponin I (0.000-0.034) ng/mL 05/07/21 05/08/21 05/08/21 Range/Units 21:38 00:00 05:29 Hct (34.0-46.0) % APTT 159.5 H* (22.0-30.0) sec D-Dimer (<0.60) mg/L FEU BUN (7-17) mg/dL Glucose (74-99) mg/dL Troponin I 0.058 H* 0.109 H* (0.000-0.034) ng/mL 05/08/21 Range/Units 05:29 Hct (34.0-46.0) % APTT (22.0-30.0) sec D-Dimer (<0.60) mg/L FEU BUN (7-17) mg/dL Glucose (74-99) mg/dL Troponin I 0.114 H* (0.000-0.034) ng/mL Diabetes panel 05/07/21 Range/Units 21:38 Sodium 140 (137-145) mmol/L Potassium 3.7 (3.5-5.1) mmol/L Chloride 107 (98-107) mmol/L Carbon Dioxide 24 (22-30) mmol/L BUN 27 H (7-17) mg/dL Creatinine 0.79 (0.52-1.04) mg/dL Glucose 199 H (74-99) mg/dL Calcium 10.0 (8.4-10.2) mg/dL AST 30 (14-36) U/L ALT 25 (4-34) U/L Alkaline Phosphatase 108 (38-126) U/L Total Protein 7.1 (6.3-8.2) g/dL Albumin 4.0 (3.5-5.0) g/dL Calcium panel 05/07/21 Range/Units 21:38 Calcium 10.0 (8.4-10.2) mg/dL Albumin 4.0 (3.5-5.0) g/dL Pituitary panel 05/07/21 Range/Units 21:38 Sodium 140 (137-145) mmol/L Potassium 3.7 (3.5-5.1) mmol/L Chloride 107 (98-107) mmol/L Carbon Dioxide 24 (22-30) mmol/L BUN 27 H (7-17) mg/dL Creatinine 0.79 (0.52-1.04) mg/dL Glucose 199 H (74-99) mg/dL Calcium 10.0 (8.4-10.2) mg/dL Adrenal panel 05/07/21 Range/Units 21:38 Sodium 140 (137-145) mmol/L Potassium 3.7 (3.5-5.1) mmol/L Chloride 107 (98-107) mmol/L Carbon Dioxide 24 (22-30) mmol/L BUN 27 H (7-17) mg/dL Creatinine 0.79 (0.52-1.04) mg/dL Glucose 199 H (74-99) mg/dL Calcium 10.0 (8.4-10.2) mg/dL Total Bilirubin 0.8 (0.2-1.3) mg/dL AST 30 (14-36) U/L ALT 25 (4-34) U/L Alkaline Phosphatase 108 (38-126) U/L Total Protein 7.1 (6.3-8.2) g/dL Albumin 4.0 (3.5-5.0) g/dL - Imaging CT scan - chest: report reviewed Assessment and Plan Assessment: 1. Bilateral pulmonary emboli 2. Elevated troponins 3. History of hypertension 4. History of hyperlipidemia Plan: 1. Continue IV heparin 2. Venous duplex ordered and reviewed 3. Patient may have a heart healthy diet 4. Nothing by mouth after midnight for possible EKOS tomorrow 5. Echocardiogram limited study. Shows RVSP 47.13, RV not visualized. With elevated RVSP and elevated troponins as well as significant clot burden recommendation is to proceed with EKOS. 6. The procedure was discussed with both the patient and her in detail including risks and benefits. At this time patient would like to have more time to think about proceeding with the procedure. Discussed there is no significant urgency as patient has up to 14 days to undergo EKOS. Thank you for this consultation, and allowing us take part in the plan of care of your patient during his hospital stay. The impression and plan of care has been dictated as directed. Dr. Manriquez I performed a history and examination of this patient, discussed the same with the dictator. I agree with the dictator's note ,documented as a scribe. Any additional findings or plans will be noted.
[2021-05-08] MEDS: HEPARIN SOD,PORK IN 0.45% NACL 25,000 UNIT in 0.45% NACL 1 250ML.BAG IV SCH (15:35)
--- NOTE | 2021-05-08 20:47 | HP ---
HISTORY AND PHYSICAL CHIEF COMPLAINT: Shortness of breath for 2 weeks. HISTORY OF PRESENT ILLNESS: This is another admission for this 75-year-old white female who has been having shortness of breath for the last 2 weeks, and it suddenly became worse and she came to the emergency room. She was identified as having bilateral pulmonary emboli. She does have a history of breast cancer and hypertension. She used to smoke, but she has quit. She has had no hemoptysis or pleuritic pain. REVIEW OF SYSTEMS: She has had no neurologic problems, change in vision or hearing, cough, hemoptysis, angina, infarctions, abdominal pain, nausea, vomiting, melena, hematochezia, jaundice, hepatitis, frequency, urgency, dysuria, renal failure, etc. Past medical history, family history, and personal and social histories reveal that she is NOT ALLERGIC TO ANY MEDICATIONS. She has been letrozole 2.5 mg once a day, simvastatin 20 mg once a day, Tenoretic 100/25 once a day, aspirin 81 mg a day, and vitamin D3. PHYSICAL EXAMINATION: Blood pressure 130/72 with sinus rhythm. Head, ears, eyes, nose, mouth and throat are normal. Neck veins are not distended. Chest demonstrates somewhat decreased breath sounds with no rales or rhonchi. There are no rubs. Cardiac exam demonstrates normal sinus rhythm and no murmurs or extra sounds. The abdomen is soft and nontender without visceromegaly or masses. Bowel sounds are present. Extremities are normal. There is no edema. Neurologically she is intact. She is admitted to the hospital with diagnoses: 1. Bilateral pulmonary emboli. 2. History of carcinoma of the breast. 3. History of hypertension. 4. Hyperlipidemia. PLAN: 1. Bedrest. 2. IV fluids. 3. Anticoagulation. 4. Pulmonology consult. MMODL / IJN: [id number] /
[2021-05-09] MEDS: SODIUM CHLORIDE 0.9% 1,000 ML IV SCH (06:45)
--- NOTE | 2021-05-09 09:35 | P.PN ---
Subjective Progress Note Date: 05/09/21 Principal diagnosis: Bilateral PE Patient seen and examined at bedside. Still complaining of some shortness of breath. Denies any chest pain since heparin drip. States she wants to go ahead with EKOS. Objective - Vital Signs Vital signs: Vital Signs Temp 96.7 F L 05/09/21 08:00 Pulse 67 05/09/21 08:00 Resp 16 05/09/21 09:24 BP 143/77 05/09/21 08:00 Pulse Ox 87 L 05/09/21 09:24 Intake & Output 05/08/21 05/09/21 05/09/21 18:59 06:59 18:59 Intake Total 120.952 148.500 Output Total 300 Balance 120.952 -151.500 Intake: Intake, IV Titration 120.952 148.500 Amount Heparin Sod,Pork in 0.45% 120.952 148.500 NaCl 25,000 unit In 0.45 % NaCl 1 250ml.bag @ 18 UNITS/KG/HR 17.554 mls/hr IV .[id number] [facility] Rx#: [id number] Oral 0 Output: Urine 300 Other: Voiding Method Bedside Commode # Voids 1 1 - Constitutional General appearance: Present: morbidly obese - EENT Eyes: Present: PERRLA - Respiratory Details: poor inspiration, shortness of breath. Lungs clear bilaterally. - Cardiovascular Rhythm: regular - Psychiatric Psychiatric: Present: A&O x's 3, appropriate affect - Labs CBC & Chem 7: 05/08/21 05:29 05/07/21 21:38 Labs: Abnormal Lab Results - Last 24 Hours (Table) 05/08/21 05/08/21 05/09/21 Range/Units 12:03 18:49 03:23 APTT 91.2 H 100.5 H* 63.1 H (22.0-30.0) sec Assessment and Plan Assessment: 1. Bilateral pulmonary emboli 2. Elevated troponins 3. History of hypertension 4. History of hyperlipidemia Plan: 1. After discussion with patient and Dr. Vergara who was at the bedside- patient would benefit from intervention due to RVSP being elevated and no history of heart failure. We will schedule today for EKOS.
[2021-05-09] MEDS ORDERED: LIDOCAINE 1% INJ 10MG/ML (20 ML MDV) ONE (10:08)
[2021-05-09] MEDS ORDERED: ALTEPLASE 10 MG in SODIUM CHLORIDE 0.9% 100 ML IV ONE ×4 (10:15)
[2021-05-09] MEDS ORDERED: SODIUM CHLORIDE 0.9% 1,000 ML IV SCH ×2 (10:15)
[2021-05-09] MEDS ORDERED: HEPARIN SOD,PORK IN 0.45% NACL 25,000 UNIT in 0.45% NACL 1 250ML.BAG IV SCH ×2 (10:15)
[2021-05-09] MEDS ORDERED: ALTEPLASE 2 MG VIAL (CATHFLO) IV STA (10:15)
[2021-05-09] MEDS ORDERED: SODIUM CHLORIDE 0.9% 250 ML IV ONE (10:38)
[2021-05-09] MEDS ORDERED: LIDOCAINE 1% INJ 10MG/ML (20 ML MDV) SQ ONE (10:58)
[2021-05-09] MEDS ORDERED: fentaNYL (PF) 50 MCG/ML 2 ML AMP IV ONE (10:58)
[2021-05-09] MEDS ORDERED: fentaNYL (PF) 50 MCG/ML 2 ML AMP ONE (10:58)
[2021-05-09] MEDS ORDERED: IOPAMIDOL-250 100ML BTL IV ONE (11:05)
--- NOTE | 2021-05-09 11:34 | P.OP ---
Date of Procedure: 05/09/21 Description of Procedure: Preoperative diagnosis: Bilateral Pulmonary artery embolus with right heart strain Postoperative diagnosis: Same Procedure: Ultrasound-guided right femoral vein access with placement of bilateral thrombolytic EKOS catheters and initiation of thrombolysis. Surgeon: Maverick Manriquez D.O. Anesthesia: Local with conscious sedation x 29 minutes Estimated blood loss: Minimal Complications: None Condition: Stable Indication for procedure: 75-year-old female presented originally to the emergency department secondary to shortness of breath and chest discomfort. She had a CT angiogram of the chest which demonstrated large bilateral pulmonary embolisms without evidence of right heart strain on CT. She did have elevated troponins and was sent for Echo at that time. Echo was discussed with the digital ad trafficker who states that the right heart pressures were elevated at 47 but difficult to visualize the right heart and could not definitively diagnosed with right heart strain. After discussion with her primary care physician she has not had any evidence of heart failure in the past or elevated right heart pressures on previous echoes and therefore recommended intervention. She presents today to the [facility] for EKOS. Operative narrative: After written and informed consent was obtained from the patient and all risk, benefits and complications were discussed the patient was brought to the Filter Worker and laid in a supine position. The area of the right groin was prepped and draped in usual sterile fashion. Timeout was performed in normal fashion. Under ultrasound guidance the right common femoral vein was accessed 2 and 6-[place]cuadorean sheaths were placed utilizing Seldinger technique. 035 Glidewire advantage was then placed and directed to the inferior vena cava and atrial junction. Utilizing an angled glide catheter the atria was accessed and wire was placed into the right ventricle and ultimately up to the pulmonary artery. The pulmonary artery on the right was accessed and wire was placed into the segmental branch with removal of the angled glide catheter. Through the other sheath and 035 Glidewire advantage was placed and utilizing the angled glide catheter the left pulmonary artery was accessed and wire was placed into the segmental branch and catheter was removed. The EKOS infusion catheters were then guided over the guidewires into the appropriate position across the pulmonary arteries bilaterally. Wires were then removed and replaced with the u ltrasound inner core wire. 2 mg of TPA was then infused into both infusion ports. The sheaths were then secured in place with nylon suture. The area was then cleansed and dressings were placed. The patient was then connected to TPA and heparin as well as coolant per protocol. Patient tolerated procedure well and was sent to the ICU for recovery.
[2021-05-09 12:04] LABS: Basophils % (A) 1 %; Eosinophils # (A) 0.2 k/uL (0-0.7); Eosinophils % (A) 3 %; HCT 39.2 % (34.0-46.0); HGB 12.8 gm/dL (11.4-16.0); Lymphocytes # (A) 1.7 k/uL (1.0-4.8); Lymphocytes % (A) 27 %; MCH 31.5 pg (25.0-35.0); MCHC 32.7 g/dL (31.0-37.0); MCV 96.3 fL (80.0-100.0); Mean Platelet Volume 7.1; Monocytes # (A) 0.5 k/uL (0-1.0); Monocytes % (A) 8 %; Neutrophils # (A) 3.7 k/uL (1.3-7.7); Neutrophils % (A) 59 %; Platelet Count 177 k/uL (150-450); RBC 4.07 m/uL (3.80-5.40); RDW 13.2 % (11.5-15.5); WBC 6.3 k/uL (3.8-10.6)
[2021-05-09 12:37] LABS: Glucose,Whole Blood 122 mg/dL (75-99)
[2021-05-09 12:52] LABS: African American GFR (CKD) >90 (>60 ml/min/1.73 sqM); Anion Gap 6 mmol/L; Blood Urea Nitrogen 26 mg/dL (7-17); Calcium 9.1 mg/dL (8.4-10.2); Carbon Dioxide 27 mmol/L (22-30); Chloride 109 mmol/L (98-107); Glucose 133 mg/dL (74-99); Non-African American GFR(CKD) 81 (>60 ml/min/1.73 sqM); Potassium 3.6 mmol/L (3.5-5.1); Sodium 142 mmol/L (137-145)
--- NOTE | 2021-05-09 14:32 | P.PN ---
Subjective Progress Note Date: 05/09/21 75-year-old female patient came into the ED with subacute dyspnea progressively getting worse over the past 2-3 weeks and the patient was progressively getting more short of breath. The patient is known to have breast cancer, hypertension and hyperlipidemia. The patient had further investigation emergency and the CT angiogram showed multiple large bilateral pulmonary emboli. CAT scan of the chest confirmed the findings. Echocardiogram showed moderate LVH, ejection fraction 55-60%, RV was not abnormal visualized. There was moderate pulmonary hypertension with a pulmonary artery pressure estimated to be 47 mmHg. The patient did have troponin leak. The patient is essentially sedentary. The p atient is currently having no pleurisy. No hemoptysis. The patient is currently on 2 L of Oxymizer nasal cannula. The patient was started on IV heparin. Doppler of the lower extremity was also completed and the patient was found to have a DVT in the left lower extremity from the Neck to the common femoral vein. The patient was seen by vascular surgery. The patient will be undergoing EKOS. She is hemodynamically stable. She has no significant tachycardia. She has no hypotension at this point in time. No previous history of DVT or pulmonary embolism. On today's evaluation of 05/09/2021, the patient is being seen in follow-up in the intensive care unit. The patient was taken to the [facility] and the patient underwent EKOS procedure. Catheters were placed both in the right and the left lungs and the patient is currently being treated in the intensive care unit with thrombolytics. The infusion catheters were inserted over the guidewire. TPA has been initiated along with IV heparin. The patient is hemodynamically stable. Incision sites of dry clean and intact. The patient's white cell count is at 6.3 with a hemoglobin of 12.8. PTT is currently at 82. Normal coagulation profile. Normal renal function. Glucose at 122. The patient is currently on 2 L about 2 by nasal cannula with a pulse ox of 94%. Objective - Vital Signs Vital signs: Vital Signs Temp 98.6 F 05/09/21 12:45 Pulse 75 05/09/21 13:00 Resp 14 05/09/21 13:00 BP 130/72 05/09/21 13:00 Pulse Ox 94 L 05/09/21 13:00 Intake & Output 05/08/21 05/09/21 05/09/21 18:59 06:59 18:59 Intake Total 120.952 148.500 150.44 Output Total 300 Balance 120.952 -151.500 150.44 Intake: IV 150.44 Intake, IV Titration 120.952 148.500 Amount Heparin Sod,Pork in 0.45% 120.952 148.500 NaCl 25,000 unit In 0.45 % NaCl 1 250ml.bag @ 18 UNITS/KG/HR 17.554 mls/hr IV .[id number] [facility] Rx#: [id number] Oral 0 Output: Urine 300 Other: Voiding Method Bedside Commode Bedside Commode # Voids 1 1 - Exam General appearance: The patient is alert, oriented, appears in no acute distress. The patient is currently on 2 L of oxygen by nasal cannula. The patient is laying down supine as the patient is receiving treatment with EKOS Head exam was generally normal. There was no scleral icterus or corneal arcus. Mucous membranes were moist. Neck: Supple without lymphadenopathy. Trachea midline. Heart: S1 S2. Regular rate and rhythm. Lungs: Equal air entry. Clear to auscultation. No crackles or wheezes are heard. Abdomen: Soft, nontender, nondistended. Extremities: Normal skin color and turgor. No cyanosis, rash, ulceration, clubbing, or edema. Radial and pedal pulses are 2/4 bilaterally. Neurological: No focal deficits. Alert and oriented 3. Examination of the skin revealed no evidence of significant rashes, suspicious appearing nevi or other concerning lesions. The incision site over the groin areas dry clean and intact and there is no hematoma or bleed. - Labs CBC & Chem 7: 05/09/21 11:22 05/09/21 11:22 Labs: Abnormal Lab Results - Last 24 Hours (Table) 05/08/21 05/09/21 05/09/21 Range/Units 18:49 03:23 11:22 APTT 100.5 H* 63.1 H 82.0 H (22.0-30.0) sec Chloride (98-107) mmol/L BUN (7-17) mg/dL Glucose (74-99) mg/dL POC Glucose (mg/dL) (75-99) mg/dL 05/09/21 05/09/21 Range/Units 11:22 12:35 APTT (22.0-30.0) sec Chloride 109 H (98-107) mmol/L BUN 26 H (7-17) mg/dL Glucose 133 H (74-99) mg/dL POC Glucose (mg/dL) 122 H (75-99) mg/dL Assessment and Plan Plan: 1 acute bilateral pulmonary embolism with a large clot burden. Positive troponin leak. No sinus tachycardia. No hemodynamic instability. Moderate degree of pulmonary hypertension based on echocardiogram. Chronicity of the pulmonary hypertension is not established. The patient also has developed a DVT of the left lower extremityinvolving the common femoral vein extending to the proximal calf pain. There is complete occlusion of the distal femoral vein to proximal calf pain. The patient is currently in the intensive care unit. The patient is receiving EKOS treatment. Catheters were inserted and the patient is currently on a combination of TPA and IV heparin. He was dynamically stable. No signs of the bleed. 2 acute hypoxic respiratory failure currently on 2 L about 2 3 shortness of breath secondary to above 4 history of breast cancer. She is status post right breast lumpectomy and axill aby node sampling on 9119. 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 The margins were negative. The lymph nodes were all negative for cancer. 5 hypertension 6 hyperlipidemia Plan continue EKOS EKOS per vascular surgery Continue ICU monitoring Watch for any signs of bleed Echo was noted Doppler of the lower extremity was noted CAT scan of the chest was reviewed We'll continue to follow
[2021-05-09] MEDS: HEPARIN SOD,PORK IN 0.45% NACL 25,000 UNIT in 0.45% NACL 1 250ML.BAG IV SCH (19:18)
[2021-05-09] MEDS: traMADol 50 MG TAB PO PRN (20:42)
--- NOTE | 2021-05-09 22:30 | PN ---
PROGRESS NOTE DATE OF SERVICE: 05/09/2021 CHIEF COMPLAINT: Pulmonary emboli. HISTORY OF PRESENT ILLNESS: This lady is doing fairly well. She has had no fever, chest pain, etc. She is still short of breath at rest. She may be going for pulmonary angiography and clot lysis today. PHYSICAL EXAMINATION: Breath sounds are diminished throughout with occasional rales. The cardiac exam is normal. The abdomen is soft and nontender. IMPRESSION: 1. Multiple pulmonary emboli. 2. History of hypertension. 3. History of breast cancer. PLAN: Continue with supportive care and await further recommendations from Cardiovascular Surgery. MMODL / IJN: [id number] /
--- NOTE | 2021-05-10 07:32 | P.PN ---
Subjective Progress Note Date: 05/10/21 75-year-old female patient came into the ED with subacute dyspnea progressively getting worse over the past 2-3 weeks and the patient was progressively getting more short of breath. The patient is known to have breast cancer, hypertension and hyperlipidemia. The patient had further investigation emergency and the CT angiogram showed multiple large bilateral pulmonary emboli. CAT scan of the chest confirmed the findings. Echocardiogram showed moderate LVH, ejection fraction 55-60%, RV was not abnormal visualized. There was moderate pulmonary hypertension with a pulmonary artery pressure estimated to be 47 mmHg. The patient did have troponin leak. The patient is essentially sedentary. The p atient is currently having no pleurisy. No hemoptysis. The patient is currently on 2 L of Oxymizer nasal cannula. The patient was started on IV heparin. Doppler of the lower extremity was also completed and the patient was found to have a DVT in the left lower extremity from the Neck to the common femoral vein. The patient was seen by vascular surgery. The patient will be undergoing EKOS. She is hemodynamically stable. She has no significant tachycardia. She has no hypotension at this point in time. No previous history of DVT or pulmonary embolism. On today's evaluation of 05/09/2021, the patient is being seen in follow-up in the intensive care unit. The patient was taken to the [facility] and the patient underwent EKOS procedure. Catheters were placed both in the right and the left lungs and the patient is currently being treated in the intensive care unit with thrombolytics. The infusion catheters were inserted over the guidewire. TPA has been initiated along with IV heparin. The patient is hemodynamically stable. Incision sites of dry clean and intact. The patient's white cell count is at 6.3 with a hemoglobin of 12.8. PTT is currently at 82. Normal coagulation profile. Normal renal function. Glucose at 122. The patient is currently on 2 L about 2 by nasal cannula with a pulse ox of 94%. 05/10/21, the patient completed EKOS and the patient is doing very well. The patient is hemodynamically stable. No bleeding complications. No shortness of breath. Laying flat in bed. She is on oxygen at 2 L. She has no complaints whatsoever. 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 No other significant events overnight. No angina. No chest pain. No shortness of breath. No other complications related to pulmonary embolism. Blood work from today still pending. Objective - Vital Signs Vital signs: Vital Signs Temp 98.6 F 05/10/21 04:00 Pulse 74 05/10/21 07:00 Resp 22 05/10/21 07:00 BP 122/55 05/10/21 07:00 Pulse Ox 96 05/10/21 07:00 Intake & Output 05/09/21 05/10/21 05/10/21 18:59 06:59 18:59 Intake Total 250.44 460 Output Total 400 650 Balance -149.56 -190 Weight 97.5 kg Intake: IV 250.44 260 0.9 100 260 Oral 200 Output: Urine 400 650 Other: Voiding Method Bedpan Bedpan # Voids 0 0 - Exam General appearance: The patient is alert, oriented, appears in no acute distress. The patient is currently on 2 L of oxygen by nasal cannula. The patient is laying down supine as the patient is receiving treatment with EKOS Head exam was generally normal. There was no scleral icterus or corneal arcus. Mucous membranes were moist. Neck: Supple without lymphadenopathy. Trachea midline. Heart: S1 S2. Regular rate and rhythm. Lungs: Equal air entry. Clear to auscultation. No crackles or wheezes are heard. Abdomen: Soft, nontender, nondistended. Extremities: Normal skin color and turgor. No cyanosis, rash, ulceration, clubbing, or edema. Radial and pedal pulses are 2/4 bilaterally. Neurological: No focal deficits. Alert and oriented 3. Examination of the skin revealed no evidence of significant rashes, suspicious appearing nevi or other concerning lesions. The incision site over the groin areas dry clean and intact and there is no hematoma or bleed. - Labs CBC & Chem 7: 05/09/21 11:22 05/09/21 11:22 Labs: Abnormal Lab Results - Last 24 Hours (Table) 05/09/21 05/09/21 05/09/21 Range/Units 11: 11:22 12:35 APTT 82.0 H (22.0-30.0) sec Chloride 109 H (98-107) mmol/L BUN 26 H (7-17) mg/dL Glucose 133 H (74-99) mg/dL POC Glucose (mg/dL) 122 H (75-99) mg/dL Assessment and Plan Plan: 1 acute bilateral pulmonary embolism with a large clot burden. Positive troponin leak. No sinus tachycardia. No hemodynamic instability. Moderate degree of pulmonary hypertension based on echocardiogram. Chronicity of the pulmonary hypertension is not established. The patient also has developed a DVT of the left lower extremityinvolving the common femoral vein extending to the proximal calf pain. There is complete occlusion of the distal femoral vein to proximal calf pain. The patient is currently in the intensive care unit. The patient is receiving EKOS treatment. Catheters were inserted and the patient is currently on a combination of TPA and IV heparin. He was dynamically stable. No signs of the bleed. 05/10/2021, the patient completed the treatment. We'll discuss the case with vascular surgery. Catheters need to come out today and the patient will be started on long-term anticoagulation. 2 acute hypoxic respiratory failure currently on 2 L about 2 3 shortness of breath secondary to above 4 history of breast cancer. She is status post right breast lumpectomy and axillary node sampling on 9119. The right breast revealed a 1.2 cm invasive ductal carcinoma grade 2 ER/AK positive HER-2/rohan negative G2. The margins were negative. The lymph nodes were all negative for cancer. 5 hypertension 6 hyperlipidemia Plan EKOS treatment completed and the catheter was removed today We'll start the patient Eliquis therapeutic dose once all the catheters are out and we'll discontinue the IV heparin. Watch for any signs of bleed Echo was noted Doppler of the lower extremity was noted CAT scan of the chest was reviewed We'll continue to follow, may potentially transfer out of the intensive care unit once the catheters are out and the patient started on long-term anticoagulation.
--- NOTE | 2021-05-10 08:51 | P.PN ---
Subjective Progress Note Date: 05/10/21 Pt seen and examined. Overall states she is feeling much better and breating easier. No issues per nsg. Pt wants to sit up Objective - Vital Signs Vital signs: Vital Signs Temp 98.6 F 05/10/21 04:00 Pulse 74 05/10/21 07:00 Resp 22 05/10/21 07:00 BP 122/55 05/10/21 07:00 Pulse Ox 96 05/10/21 07:00 Intake & Output 05/09/21 05/10/21 05/10/21 18:59 06:59 18:59 Intake Total 250.44 460 Output Total 400 650 Balance -149.56 -190 Weight 97.5 kg Intake: IV 250.44 260 0.9 100 260 Oral 200 Output: Urine 400 650 Other: Voiding Method Bedpan Bedpan # Voids 0 0 - Exam NAD resting comfortably. ON O2. Abd obese, soft. Groin c/d/i no hematoma. minimal lower extremity swelling. infusion catheters removed without issue. - Labs CBC & Chem 7: 05/09/21 11:22 05/09/21 11:22 Labs: Abnormal Lab Results - Last 24 Hours (Table) 05/09/21 05/09/21 05/09/21 Range/Units 11:22 11:22 12:35 APTT 82.0 H (22.0-30.0) sec Chloride 109 H (98-107) mmol/L BUN 26 H (7-17) mg/dL Glucose 133 H (74-99) mg/dL POC Glucose (mg/dL) 122 H (75-99) mg/dL Assessment and Plan Assessment: Submassive PE. Elevated troponin, likely secondary to above Hypertension Obesity Plan: Catheters were removed without issue. DC the femoral venous sheaths. Pt may sit up 1 hour after. Initiate oral anticoagulation. Anticipate DC in next 24-48h. No further interventions planned per vascular surgery. May downgrade from ICU to 3s
[2021-05-10 10:35] LABS: Glucose,Whole Blood 134 mg/dL (75-99)
[2021-05-10] MEDS: SODIUM CHLORIDE 0.9% 1,000 ML IV SCH (10:41)
[2021-05-10] MEDS: APIXABAN 5 MG TAB PO SCH ×2 (10:43→20:35)
[2021-05-10] MEDS ORDERED: IPRATROPIUM-ALBUTEROL 3 ML NEB INHALATION PRN (12:48)
[2021-05-10] MEDS: traMADol 50 MG TAB PO PRN ×2 (13:45→20:35)
[2021-05-10] MEDS: HEPARIN SOD,PORK IN 0.45% NACL 25,000 UNIT in 0.45% NACL 1 250ML.BAG IV SCH (17:10)
--- NOTE | 2021-05-10 19:34 | PN ---
PROGRESS NOTE DATE OF SERVICE: 05/10/2021. CHIEF COMPLAINT: Pulmonary emboli and shortness of breath. HISTORY OF PRESENT ILLNESS: This lady is doing fairly well. She is still quite short of breath. She had her tPA catheter infusion yesterday. She has no new problems today including fever, chills, cough, etc. PHYSICAL EXAMINATION: Breath sounds are quite clear. There are scattered rales and occasional rhonchi and she has a slightly productive cough once in a while. IMPRESSION: 1. Multiple pulmonary emboli. 2. Hypertension. PLAN: Continue with her anticoagulation and she probably will be able to go home tomorrow. She still is quite short of breath, but she is deconditioned. MMODL / IJN: [id number] /
[2021-05-11] MEDS: traMADol 50 MG TAB PO PRN ×2 (09:50→20:29)
[2021-05-11] MEDS: APIXABAN 5 MG TAB PO SCH ×2 (09:51→20:31)
[2021-05-11 14:57] LABS: Appearance,Urine Cloudy (Clear); Bilirubin,Urine Negative (Negative); Blood,Urine Large (Negative); Budding Yeast,Urine Occasional /hpf; Color,Urine Dark Brown; Glucose,Urine (UA) 1+ (Negative); Ketones,Urine Negative (Negative); Leukocyte Esterase,Urine Large (Negative); Mucus,Urine Few /hpf; Nitrite,Urine Negative (Negative); PH, Urine 5.5 (5.0-8.0); Protein,Urine 1+ (Negative); RBC,Urine >182 /hpf (0-5); Specific Gravity,Urine 1.021 (1.001-1.035); Squamous Epithelial Cell,Urine 1 /hpf (0-4); WBC,Urine >182 /hpf (0-5)
--- NOTE | 2021-05-11 15:04 | P.PN ---
Subjective Progress Note Date: 05/11/21 Pateint seen and examined sitting up in the bedside chair. She is status post EKOS 05/09/21. States her breathing somewhat easier. She is complaining of pain in her feet due to her chronic arthritis but is able to move her lower extremities without any difficulty. Right groin was some mild ecchymosis, no hematoma or bleeding noted. Objective - Vital Signs Vital signs: Vital Signs Temp 98.8 F 05/11/21 00:00 Pulse 74 05/11/21 04:00 Resp 16 05/11/21 04:00 BP 125/79 05/11/21 04:00 Pulse Ox 99 05/11/21 04:00 Intake & Output 05/10/21 05/11/21 05/11/21 18:59 06:59 18:59 Intake Total 60 Output Total 0 0 Balance 60 0 Intake: IV 60 0.9 60 Output: Urine 0 0 Other: Voiding Method Toilet Toilet # Voids 0 1 1 - Exam General appearance: The patient is alert, oriented, in no acute distress. HET: Head is normocephalic and atraumatic. Pupils are equal and reactive. Oropharynx is clear without lesions. Neck: Supple without lymphadenopathy. Trachea midline. Heart: S1 S2. Regular rate and rhythm. Lungs: No crackles or wheezes are heard. Abdomen: Soft, nontender, nondistended. Extremities: Normal skin color and turgor. No cyanosis, rash, ulceration, clubbing, or edema. Right groin access site clean dry and intact, mild ecchymosis, no palpable hematoma or bleeding noted. Patient able to move right lower extremity. Neurological: No focal deficits. Strength and sensation are grossly intact. - Labs CBC & Chem 7: 05/09/21 11:22 05/09/21 11:22 Labs: Abnormal Lab Results - Last 24 Hours (Table) 05/10/21 Range/Units 10:34 POC Glucose (mg/dL) 134 H (75-99) mg/dL Assessment and Plan Assessment: 1. Bilateral pulmonary emboli status post EKOS 2. Elevated troponins 3. History of hypertension 4. History of hyperlipidemia Plan: The patient is status post EKOS. Continue Eliquis N milligrams twice a day 7 days then transition to 5 mg twice a day. Patient is cleared for discharge from Vascular surgery once otherwise medically stable. Thank you for this consultation, we will sign off at this time. The impression and plan of care has been dictated as directed. Dr. Orta I performed a history and examination of this patient, discussed the same with the dictator. I agree with the dictator's note ,documented as a scribe. Any additional findings or plans will be noted.
--- NOTE | 2021-05-11 16:25 | XR ---
EXAMINATION TYPE: XR chest 1V portable DATE OF EXAM: 05/11/2021 CLINICAL HISTORY: Difficulty breathing progress study. TECHNIQUE: Single AP portable semiupright view of the chest is obtained. COMPARISON: Chest x-ray and CTA chest from 4 days earlier FINDINGS: Somewhat low lung volumes redemonstrated. No new focal airspace opacity, pleural effusion, or pneumothorax seen bilaterally. Cardiac silhouette size is stable and upper limits of normal. Osse ous structures are intact. IMPRESSION: No acute pulmonary process.
[2021-05-11] MEDS: ACETAMINOPHEN TAB 325 MG TAB PO PRN ×2 (16:37→23:50)
[2021-05-11] MEDS: AMOXIC-POT CLAV 875-125MG 1 EACH TAB PO SCH (16:37)
[2021-05-11] MEDS: NAPROXEN 250 MG TAB PO SCH (16:38)
[2021-05-11] MEDS: IPRATROPIUM-ALBUTEROL 3 ML NEB INHALATION SCH ×2 (19:24→19:30)
--- NOTE | 2021-05-11 23:11 | PN ---
PROGRESS NOTE DATE OF SERVICE: 05/11/2021 CHIEF COMPLAINT: Pulmonary emboli. HISTORY OF PRESENT ILLNESS: This lady was slated to go home today, but then later in the morning she spiked a temperature. She denies any chest pain, abdominal pain, headache, increased difficulty breathing, urinary complaints, etc. PHYSICAL EXAMINATION: Chest is clear. Cardiac exam is normal. Abdomen is soft, nontender. IMPRESSION: 1. Status post pulmonary emboli. 2. Fever of unknown origin. PLAN: 1. Repeat chest x-ray. 2. Blood cultures. 3. Urinalysis. 4. Cancel discharge. MMODL / IJN: [id number] /
[2021-05-12 00:09] VITALS: RESP 18
[2021-05-12] MEDS: IPRATROPIUM-ALBUTEROL 3 ML NEB INHALATION SCH ×2 (07:10→11:00)
[2021-05-12] MEDS: APIXABAN 5 MG TAB PO SCH (08:31)
[2021-05-12] MEDS: AMOXIC-POT CLAV 875-125MG 1 EACH TAB PO SCH (08:32)
[2021-05-12] MEDS: NAPROXEN 250 MG TAB PO SCH (08:32)
[2021-05-12 08:42] VITALS: BP 147/67; TEMP 97.2
[2021-05-12 11:10] VITALS: PULSE 73
--- NOTE | 2021-05-12 14:17 | DS ---
DISCHARGE SUMMARY CHIEF COMPLAINT: Shortness of breath. HISTORY OF PRESENT ILLNESS AND PHYSICAL EXAM: The details of this lady's history and physical can be found in the initial workup. LABORATORY STUDIES: While she was in the hospital, she had laboratory studies, details of which can be found in the laboratory section of her chart. COURSE IN THE HOSPITAL: After admission, she was placed on bedrest, found to have multiple bilateral pulmonary emboli. She was seen and followed by pulmonology and Interventional Cardiology. She was taken to the operating room for pulmonary angiography and tPA. Postoperatively she did well. She did develop a fever, which is due to urinary tract infection. This was treated. She was doing well. It was felt that she could go home on May 12. She will go home on activity and diet as tolerated and she will be given Augmentin for urinary tract infection and she will be on apixaban 10 mg twice a day. We will follow her up from the office. FINAL DIAGNOSES: 1. Bilateral pulmonary emboli. 2. Urinary tract infection. 3. History of hypertension. 4. History of carcinoma of the breast. OPERATIONS: None. CONSULTATION: Pulmonology and Cardiology. She is improved. MMODL / IJN: [id number] /
--- NOTE | 2021-05-12 14:49 | P.PN ---
Subjective Progress Note Date: 05/12/21 Pateint seen and examined sitting up in the bedside chair. She is status post EKOS 05/09/21. No acute changes through the night. Patient is doing well overall. Patient is for discharge home. Objective - Vital Signs Vital signs: Vital Signs Temp 97.2 F L 05/12/21 08:00 Pulse 73 05/12/21 11:10 Resp 18 05/12/21 08:00 BP 147/67 05/12/21 08:00 Pulse Ox 98 05/12/21 08:00 Intake & Output 05/11/21 05/12/21 05/12/21 18:59 06:59 18:59 Intake Total 118 240 Balance 118 240 Intake: Oral 118 240 Other: Voiding Method Bedside Commode # Voids 2 1 - Exam General appearance: The patient is alert, oriented, in no acute distress. HET: Head is normocephalic and atraumatic. Pupils are equal and reactive. Oropharynx is clear without lesions. Neck: Supple without lymphadenopathy. Trachea midline. Heart: S1 S2. Regular rate and rhythm. Lungs: No crackles or wheezes are heard. Abdomen: Soft, nontender, nondistended. Extremities: Normal skin color and turgor. No cyanosis, rash, ulceration, clubbing, or edema. Right groin access site clean dry and intact, mild ecchymosis, no palpable hematoma or bleeding noted. Patient able to move right lower extremity. Neurological: No focal deficits. Strength and sensation are grossly intact. - Labs CBC & Chem 7: 05/09/21 11:22 05/09/21 11:22 Labs: Abnormal Lab Results - Last 24 Hours (Table) 05/11/21 Range/Units Unknown Urine Appearance Cloudy H (Clear) Urine Protein 1+ H (Negative) Urine Glucose (UA) 1+ H (Negative) Urine Blood Large H (Negative) Ur Leukocyte Esterase Large H (Negative) Urine RBC >182 H (0-5) /hpf Urine WBC >182 H (0-5) /hpf Urine Mucus Few H (None) /hpf Urine Yeast (Budding) Occasional H (None) /hpf Microbiology - Last 24 Hours (Table) 05/11/21 Unknown Urine Culture - Preliminary Urine,Clean Catch Assessment and Plan Assessment: 1. Bilateral pulmonary emboli status post EKOS 2. Elevated troponins 3. History of hypertension 4. History of hyperlipidemia Plan: The patient is status post EKOS. Continue Eliquis 5 milligrams twice a day 7 days then transition to 5 mg twice a day. Patient is cleared for discharge from Vascular surgery once otherwise medically stable. Thank you for this consultation, we will sign off at this time. The impression and plan of care has been dictated as directed. Dr. Manriquez I performed a history and examination of this patient, discussed the same with the dictator. I agree with the dictator's note ,documented as a scribe. Any additional findings or plans will be noted.
== END 2021-05-12 17:25 | disposition home or self-care (01) | DRG 167 ==
LOC: EC 20:21 → 3SCARD 05-08 00:13 → 2SICU 05-09 12:39 → 3SCARD 05-10 14:22
PROVIDERS: ADMIT Internal Medicine; ATTEND Internal Medicine
PROC: 02FQ3Z0 Fragmentation of Right Pulmonary Artery, Percutaneous Approach, Ultrasonic (ICD-10-PCS; 2021-05-09)
PROC: 3E04317 Introduction of Other Thrombolytic into Central Vein, Percutaneous Approach (ICD-10-PCS; 2021-05-09)
PROC: 02FR3Z0 Fragmentation of Left Pulmonary Artery, Percutaneous Approach, Ultrasonic (ICD-10-PCS; principal; 2021-05-09 09:56)
DX: I26.99 Other pulmonary embolism without acute cor pulmonale (principal); I82.412 Acute embolism and thrombosis of left femoral vein; N39.0 Urinary tract infection, site not specified; C50.919 Malignant neoplasm of unspecified site of unspecified female breast; E66.9 Obesity, unspecified; E78.5 Hyperlipidemia, unspecified; I10 Essential (primary) hypertension; I27.20 Pulmonary hypertension, unspecified; M19.90 Unspecified osteoarthritis, unspecified site; Z20.822 Contact with and (suspected) exposure to COVID-19; Z79.811 Long term (current) use of aromatase inhibitors; Z79.82 Long term (current) use of aspirin; Z80.3 Family history of malignant neoplasm of breast; Z85.3 Personal history of malignant neoplasm of breast; Z86.711 Personal history of pulmonary embolism; Z87.891 Personal history of nicotine dependence
CPT/HCPCS: 36415; 37211; 71045; 71046; 71275; 80048; 80053; 81001; 83605; 83735; 83880; 84484; 84550; 85025; 85379; 85384; 85610; 85730; 87040; 87086; 87635; 93005; 93306; 93970; 94640; 94760; 99285

== ENCOUNTER → 2021-07-16 | Outpatient (CLI) | payer MEDICARE ==
[2021-07-16 15:50] VITALS: BP 136/85; PULSE 66; RESP 18; TEMP 98.5
--- NOTE | 2021-07-16 16:04 | P.PN ---
Subjective Progress Note Date: 07/16/21 Principal diagnosis: right breast Stage IA invasive ductal cancer Stage I a right breast cancer Ana is a 76-year-old white female who is status post right breast lumpectomy and sentinel node biopsy on 12/25/2019. The right breast revealed a 1.2 cm invasive ductal carcinoma grade 2 ER/VT positive HER-2/rohan negative G2. The margins were negative. The lymph nodes were all negative for cancer. Postprocedure she developed an open wound and has had this area packed until it healed. She has followed with medical oncology and is presently on Femara. She had a recent left breast mammogram performed on 620 121 this was benign BIRADS 1. [place] [address] this was benign BIRADS 2. She will be due for bilateral mammogram in 1 year. She did not have radiation therapy. She continues on femara. She is not concerned about any new lumps masses or nodules in either breast. She was diagnosed with bilateral pulmonary emboli in April 2021. It was necessary that she receive IV heparin for this. She is in the hospital for 5 days. She did receive the Maderna booster about one month prior to the PE. Family history: Mother: Breast cancer at 68 Father: Colon cancer Hormonal history: Menarche: 12 , breast fed;no, age at first : 22 menopause: 50 Surgical history: Right breast lumpectomy/sentinel node biopsy Cholecystectomy Appendectomy right knee replacement Hernia repair Medical history: High cholesterol Hypertension history of Pulmonary embolism Social history: Smoke: Negative Alcohol: Negative Drugs: Negative Systems: HEENT: cataract Heart: none lungs: none GI: none : none Musculoskeletal: Arthritis Psychiatric: Negative ALLERGIES: Negative Hematologic: baby aspirin daily Objective - Vital Signs Vital signs: Vital Signs Temp 98.5 F 07/16/21 15:41 Pulse 66 07/16/21 15:41 Resp 18 07/16/21 15:41 BP 136/85 07/16/21 15:41 Pulse Ox 95 07/16/21 15:41 Intake & Output 07/15/21 07/16/21 07/16/21 18:59 06:59 18:59 Weight 90.718 kg - Exam BMI 41.8 - Constitutional General appearance: Present: cooperative - EENT Eyes: Present: EOMI ENT: Present: hearing grossly normal - Neck Neck: Present: normal ROM - Respiratory Respiratory: bilateral: CTA - Cardiovascular Rhythm: regular Heart sounds: normal: S1, S2 - Gastrointestinal General gastrointestinal: Present: soft - Integumentary Integumentary: Present: normal turgor - Musculoskeletal Musculoskeletal Comment(s): uses a walker - Psychiatric Psychiatric: Present: A&O x's 3, appropriate affect, intact judgment & insight - Additional findings Additional findings: Breast Exam: BRA: 44DD inspection: post op changes right breast palpation: right breast: Positional exam fibrocystic changes, postop changes, no evidence of recurrent cancer Right axilla: No adenopathy of concern Left breast: Positional exam fibrocystic changes no dominant masses or nodules of concern Left axilla: No adenopathy of concern Assessment and Plan Assessment: Impression: High cholesterol Hypertension history of Pulmonary embolism right breast stage IA no evidence of recurrence Plan: 1. bilateral mammogram in September 2021 with appointment at that time 2. continue with a full oncology CC: DR. Vergara
== END ==
LOC: WWCWWP 15:09
PROVIDERS: ATTEND Surgery
DX: Z08 Encounter for follow-up examination after completed treatment for malignant neoplasm (principal); Z85.3 Personal history of malignant neoplasm of breast; E78.00 Pure hypercholesterolemia, unspecified; I10 Essential (primary) hypertension; Z86.711 Personal history of pulmonary embolism

== ENCOUNTER → 2021-10-15 | Outpatient (CLI) | payer MEDICARE ==
--- NOTE | 2021-10-15 11:56 | MM ---
Reason for Exam: Hx of cancer, neoadjuvant chemotherapy. Last mammogram was performed 2 year(s) and 4 month(s) ago. Patient History: Menarche at age 12. First Full-Term at age 22. Postmenopausal. Breast cancer, age 74. 12/25/2019, Lumpectomy on the Right side. 12/25/2019, Malignant Core Biopsy on the right side. 10/18/2019, Malignant Core Biopsy on the right side. Mother had breast cancer, age 68. Prior Study Comparison: 03/19/2013 Bilateral Screening Mammogram, [facility]. 04/14/2016 Bilateral Screening Mammogram, [facility]. 05/10/2017 Bilateral Screening Mammogram, [facility]. 06/08/2018 Bilateral Screening Mammogram, [facility]. 06/11/2019 Bilateral Screening Mammogram, [facility]. 10/18/2019 Right Diagnostic Mammogram, [facility]. 10/13/2020 Left Diagnostic Mammogram, [facility]. 11/12/2020 Right Diagnostic Mammogram, [facility]. Tissue Density: There are scattered fibroglandular densities. Findings: Analyzed By CAD. Postbiopsy changes are within the right breast. Chronic nodularity is evident on the right. Left breast is stable. Overall Assessment: Benign, BI-RAD 2 Management: Diagnostic Mammogram of both breasts in 1 year. A clinical breast exam by your physician is recommended on an annual basis and results should be correlated with mammographic findings. This exam should not preclude additional follow-up of suspicious palpable abnormalities. Results were given to the patient verbally at the time of exam. Patient should continue monthly self breast exam. Electronically signed and approved by: Jimi Russell D.O. Radiologis
== END | disposition home or self-care (01) ==
LOC: RADMAMWWP 10:55
PROVIDERS: ATTEND Surgery
DX: R92.8 Other abnormal and inconclusive findings on diagnostic imaging of breast (principal); Z80.3 Family history of malignant neoplasm of breast; Z78.0 Asymptomatic menopausal state
CPT/HCPCS: 77066; G0279; 77062

== ENCOUNTER → 2021-11-06 | Outpatient (CLI) | payer MEDICARE ==
[2021-11-06 16:01] VITALS: BP 139/85; PULSE 55; RESP 18; TEMP 98.3
--- NOTE | 2021-11-06 16:10 | P.PN ---
Subjective Progress Note Date: 11/06/21 Principal diagnosis: Right breast stage IA invasive ductal carcinoma right breast Stage IA invasive ductal cancer Ana is a 76-year-old white female who is status post right breast lumpectomy and sentinel node biopsy on 12/25/2019. The right breast revealed a 1.2 cm invasive ductal carcinoma grade 2 ER/NV positive HER-2/rohan negative G2. The margins were negative. The lymph nodes were all negative for cancer. Postprocedure she developed an open wound and has had this area packed until it healed. She has followed with medical oncology and is presently on Femara. She had a bilateral mammogram in . This was benign BIRADS 2. She did not have radiation therapy. She continues on femara. She is not concerned about any new lumps masses or nodules in either breast. She was diagnosed with bilateral pulmonary emboli in April 2021. It was judson wood that she receive IV heparin for this. She is in the hospital for 5 days. She did receive the Maderna booster about one month prior to the PE. Family history: Mother: Breast cancer at 68 Father: Colon cancer Hormonal history: Menarche: 12 , breast fed;no, age at first : 22 menopause: 50 Surgical history: Right breast lumpectomy/sentinel node biopsy Cholecystectomy Appendectomy right knee replacement Hernia repair Medical history: High cholesterol Hypertension history of Pulmonary embolism Social history: Smoke: Negative Alcohol: Negative Drugs: Negative Systems: HEENT: cataract Heart: none lungs: none GI: none : none Musculoskeletal: Arthritis Psychiatric: Negative ALLERGIES: Negative Hematologic: baby aspirin daily Objective - Constitutional General appearance: Present: cooperative - EENT Eyes: Present: EOMI ENT: Present: hearing grossly normal - Neck Neck: Present: normal ROM - Respiratory Respiratory: bilateral: CTA - Cardiovascular Rhythm: regular Heart sounds: normal: S1, S2 - Integumentary Integumentary: Present: normal turgor - Psychiatric Psychiatric: Present: A&O x's 3, appropriate affect, intact judgment & insight - Additional findings Additional findings: Breast Exam: BRA: 44DD inspection: post op changes right breast; bilateral grade 3 ptosis; fungal infection under the left breast palpation: right breast: fibrocystic changes, postop changes, no evidence of recurrent cancer Right axilla: No adenopathy of concern Left breast: Positional exam fibrocystic changes no dominant masses or nodules of concern Left axilla: No adenopathy of concern Assessment and Plan Assessment: Assessment and Plan Assessment: Impression: High cholesterol Hypertension history of Pulmonary embolism right breast stage IA no evidence of recurrence Plan: 1. bilateral mammogram in September 2022 with appointment at that time 2. continue with medical oncology 3. follow up here in 6 months 4. nystatin to area of fungal infection 5. discuss if patient should be taking antihormone therapy letrazole with the history of pulmonary embloi with medical oncology/ patient has appointment (I discussed this with pharmacy the note that this could cause thromboembolic events in 1.1% of patients and pulmonary emboli in 2% of patient's. CC: Dr. Vail
== END ==
LOC: WWCWWP 15:51
PROVIDERS: ATTEND Surgery
DX: Z08 Encounter for follow-up examination after completed treatment for malignant neoplasm (principal); Z85.3 Personal history of malignant neoplasm of breast; E78.00 Pure hypercholesterolemia, unspecified; I10 Essential (primary) hypertension; Z86.711 Personal history of pulmonary embolism

== ENCOUNTER 2022-04-13 03:44 | Inpatient (IN) | payer MEDICARE ==
[2022-04-13] MEDS ORDERED: SODIUM CHLORIDE 0.9% 1,000 ML IV STA (03:58)
--- NOTE | 2022-04-13 03:58 | ED ---
Weakness HPI - General Chief complaint: Urogenital Stated complaint: weakness. blood in urine Time Seen by Provider: 04/13/22 03:49 Source: patient, EMS, RN notes reviewed, old records reviewed Mode of arrival: EMS - History of Present Illness Initial comments: This is a 76 show female coming in with blood in the ER but really showed of breath on evaluation. Patient denying any current chest pain does have some abdominal pain and pain in the latter area. Suprapubic area. Patient states she does get short of breath at times and feels very hot and flushed and believes is related to her medications MD Complaint: generalized weakness -: hour(s) Location: generalized Severity: moderate Severity scale (1-10): 7 Quality: tingling Consistency: constant Improves with: none Worsens with: none Context: recent illness, history of similar Associated Symptoms: chest pain, shortness of breath - Related Data Home Medications Medication Instructions Recorded Confirmed Aspirin [Adult Low Dose Aspirin EC] 81 mg PO HS 06/22/19 04/13/22 Letrozole [Femara] 2.5 mg PO DAILY 07/24/20 04/13/22 Apixaban [Eliquis] 5 mg PO BID 04/13/22 04/13/22 metFORMIN HCL [Glucophage] 500 mg PO DAILY 04/13/22 04/13/22 Previous Rx's Medication Instructions Recorded Atorvastatin [Lipitor] 80 mg PO HS #30 tab 04/15/22 Chlorthalidone [Hygroton] 25 mg PO DAILY #30 tab 04/15/22 carvediloL [Coreg] 6.25 mg PO BID-W/MEALS #60 tab 04/15/22 Allergies Allergy/AdvReac Type Severity Reaction Status Date / Time No Known Allergies Allergy Verified 04/13/22 07:36 Review of Systems ROS Statement: Those systems with pertinent positive or pertinent negative responses have been documented in the HPI. ROS Other: All systems not noted in ROS Statement are negative. Past Medical History Past Medical History: Hyperlipidemia, Hypertension Additional Past Medical History / Comment(s): rt breast cancer; She is status post right breast lumpectomy and axillary node sampling on 9119. The right breast revealed a 1.2 cm invasive ductal carcinoma grade 2 ER/[place] positive HER- 2/rohan negative G2. The margins were negative. The lymph nodes were all negative for cancer. History of Any Multi-Drug Resistant Organisms: None Reported Past Surgical History: Appendectomy, Cholecystectomy, Hernia Repair, Orthopedic Surgery Additional Past Surgical History / Comment(s): right total knee 2011 Past Anesthesia/Blood Transfusion Reactions: No Reported Reaction Past Psychological History: No Psychological Hx Reported Smoking Status: Never smoker Past Alcohol Use History: None Reported Past Drug Use History: None Reported - Past Family History Mother Family Medical History: Cancer Additional Family Medical History / Comment(s): breast CA Father Family Medical History: Cancer Additional Family Medical History / Comment(s): scrotal CA General Exam General appearance: alert, in no apparent distress Head exam: Present: atraumatic, normocephalic, normal inspection Eye exam: Present: normal appearance, PERRL, EOMI. Absent: scleral icterus, conjunctival injection, periorbital swelling ENT exam: Present: normal exam, mucous membranes moist Neck exam: Present: normal inspection. Absent: tenderness, meningismus, l ymphadenopathy Respiratory exam: Present: normal lung sounds bilaterally. Absent: respiratory distress, wheezes, rales, rhonchi, stridor Cardiovascular Exam: Present: tachycardia, irregular rhythm, normal heart sounds. Absent: systolic murmur, diastolic murmur, rubs, gallop, clicks GI/Abdominal exam: Present: soft, normal bowel sounds. Absent: distended, tenderness, guarding, rebound, rigid Extremities exam: Present: normal inspection, full ROM, normal capillary refill. Absent: tenderness, pedal edema, joint swelling, calf tenderness Back exam: Present: normal inspection Neurological exam: Present: alert, oriented X3, CN II-XII intact Psychiatric exam: Present: normal affect, normal mood Skin exam: Present: warm, dry, intact, normal color. Absent: rash Course Vital Signs 04/13/22 04/13/22 04/13/22 03:48 04:56 05:00 Temperature 98 F Pulse Rate 78 131 H 131 H Respiratory 16 18 16 Rate Blood Pressure 126/82 120/81 114/61 O2 Sat by Pulse 96 96 96 Oximetry 04/13/22 04/13/22 04/13/22 06:25 07:37 11:00 Temperature Pulse Rate 53 L 89 57 L Respiratory 15 17 15 Rate Blood Pressure 150/78 116/62 131/59 O2 Sat by Pulse 98 97 98 Oximetry 04/13/22 04/13/22 13:29 15:16 Temperature Pulse Rate 57 L 50 L Respiratory 12 19 Rate Blood Pressure 131/62 124/55 O2 Sat by Pulse 97 99 Oximetry - Reevaluation(s) Reevaluation #1: Medical record is reviewed Heart rate difficult to control patient is still very short of breath here in the ER Patient informed results and questions answered - Consultations Consultation #1: Spoke with Dr. Ursula sanchez to admit this patient EKG Findings - EKG Comments: EKG Findings:: EKG A. fib a flutter 131 QRS 1:15 QTC 385 Medical Decision Making - Medical Decision Making 6 female DF for severe weakness found to be in A. fib with RVR and severe short of breath patient will be admitted for heart rate evaluation and antibiotics for UTI - Lab Data Result diagrams: 04/13/22 04:19 04/13/22 04:19 Lab Results 04/13/22 04/13/22 04/13/22 Range/Units 04:09 04:19 04:19 WBC 7.3 (3.8-10.6) k/uL RBC 4.53 (3.80-5.40) m/uL Hgb 14.5 (11.4-16.0) gm/dL Hct 42.1 (34.0-46.0) % MCV 92.9 (80.0-100.0) fL MCH 32.0 (25.0-35.0) pg MCHC 34.5 (31.0-37.0) g/dL RDW 13.2 (11.5-15.5) % Plt Count 265 (150-450) k/uL MPV 7.5 Neutrophils % 67 % Lymphocytes % 21 % Monocytes % 8 % Eosinophils % 2 % Basophils % 1 % Neutrophils # 4.9 (1.3-7.7) k/uL Lymphocytes # 1.5 (1.0-4.8) k/uL Monocytes # 0.6 (0-1.0) k/uL Eosinophils # 0.2 (0-0.7) k/uL Basophils # 0.1 (0-0.2) k/uL PT 10.5 (9.0-12.0) sec INR 1.0 (<1.2) APTT 23.7 (22.0-30.0) sec Sodium (137-145) mmol/L Potassium (3.5-5.1) mmol/L Chloride (98-107) mmol/L Carbon Dioxide (22-30) mmol/L Anion Gap mmol/L BUN (7-17) mg/dL Creatinine (0.52-1.04) mg/dL Est GFR (CKD-EPI)AfAm (>60 ml/min/1.73 sqM) Est GFR (CKD-EPI)NonAf (>60 ml/min/1.73 sqM) Glucose (74-99) mg/dL Estimated Ave Glu mg/dL Hemoglobin A1c (0.0-6.0) % Calcium (8.4-10.2) mg/dL Phosphorus (2.5-4.5) mg/dL Magnesium (1.6-2.3) mg/dL Total Bilirubin (0.2-1.3) mg/dL AST (14-36) U/L ALT (4-34) U/L Alkaline Phosphatase (38-126) U/L Troponin I (0.000-0.034) ng/mL NT-Pro-B Natriuret Pep pg/mL Total Protein (6.3-8.2) g/dL Albumin (3.5-5.0) g/dL Triglycerides (0.00-149.00) mg/dL Cholesterol (0.00-200.00) mg/dL LDL Cholesterol, Calc (0.0-131.0) mg/dL VLDL Cholesterol, Calc (5.00-40.00) mg/dL HDL Cholesterol (40.00-60.00) mg/dL Cholesterol/HDL Ratio Ratio Urine Color Light Red Urine Appearance Cloudy H (Clear) Urine pH 7.0 (5.0-8.0) Ur Specific [place] 1.006 (1.001-1.035) Urine Protein 1+ H (Negative) Urine Glucose (UA) Negative (Negative) Urine Ketones Negative (Negative) Urine Blood Large H (Negative) Urine Nitrite Negative (Negative) Urine Bilirubin Negative (Negative) Urine Urobilinogen <2.0 (<2.0) mg/dL Ur Leukocyte Esterase Large H (Negative) Urine RBC 176 H (0-5) /hpf Urine WBC 85 H (0-5) /hpf Ur Squamous Epith Cells 1 (0-4) /hpf Urine Bacteria Occasional H (None) /hpf Urine Mucus Rare H (None) /hpf 04/13/22 04/13/22 04/13/22 Range/Units 04:19 04:19 04:19 WBC (3.8-10.6) k/uL RBC (3.80-5.40) m/uL Hgb (11.4-16.0) gm/dL Hct (34.0-46.0) % MCV (80.0-100.0) fL MCH (25.0-35.0) pg MCHC (31.0-37.0) g/dL RDW (11.5-15.5) % Plt Count (150-450) k/uL MPV Neutrophils % % Lymphocytes % % Monocytes % % Eosinophils % % Basophils % % Neutrophils # (1.3-7.7) k/uL Lymphocytes # (1.0-4.8) k/uL Monocytes # (0-1.0) k/uL Eosinophils # (0-0.7) k/uL Basophils # (0-0.2) k/uL PT (9.0-12.0) sec INR (<1.2) APTT (22.0-30.0) sec Sodium 142 (137-145) mmol/L Potassium 3.5 (3.5-5.1) mmol/L Chloride 112 H (98-107) mmol/L Carbon Dioxide 20 L (22-30) mmol/L Anion Gap 10 mmol/L BUN 25 H (7-17) mg/dL Creatinine 0.84 (0.52-1.04) mg/dL Est GFR (CKD-EPI)AfAm 78 (>60 ml/min/1.73 sqM) Est GFR (CKD-EPI)NonAf 68 (>60 ml/min/1.73 sqM) Glucose 186 H (74-99) mg/dL Estimated Ave Glu mg/dL Hemoglobin A1c (0.0-6.0) % Calcium 9.7 (8.4-10.2) mg/dL Phosphorus 3.7 (2.5-4.5) mg/dL Magnesium 1.6 (1.6-2.3) mg/dL Total Bilirubin 0.4 (0.2-1.3) mg/dL AST 26 (14-36) U/L ALT 22 (4-34) U/L Alkaline Phosphatase 83 (38-126) U/L Troponin I 0.060 H* (0.000-0.034) ng/mL NT-Pro-B Natriuret Pep 148 pg/mL Total Protein 6.5 (6.3-8.2) g/dL Albumin 3.8 (3.5-5.0) g/dL Triglycerides (0.00-149.00) mg/dL Cholesterol (0.00-200.00) mg/dL LDL Cholesterol, Calc (0.0-131.0) mg/dL VLDL Cholesterol, Calc (5.00-40.00) mg/dL HDL Cholesterol (40.00-60.00) mg/dL Cholesterol/HDL Ratio Ratio Urine Color Urine Appearance (Clear) Urine pH (5.0-8.0) Ur Specific [place] (1.001-1.035) Urine Protein (Negative) Urine Glucose (UA) (Negative) Urine Ketones (Negative) Urine Blood (Negative) Urine Nitrite (Negative) Urine Bilirubin (Negative) Urine Urobilinogen (<2.0) mg/dL Ur Leukocyte Esterase (Negative) Urine RBC (0-5) /hpf Urine WBC (0-5) /hpf Ur Squamous Epith Cells (0-4) /hpf Urine Bacteria (None) /hpf Urine Mucus (None) /hpf 04/13/22 04/13/22 Range/Units 04:19 04:19 WBC (3.8-10.6) k/uL RBC (3.80-5.40) m/uL Hgb (11.4-16.0) gm/dL Hct (34.0-46.0) % MCV (80.0-100.0) fL MCH (25.0-35.0) pg MCHC (31.0-37.0) g/dL RDW (11.5-15.5) % Plt Count (150-450) k/uL MPV Neutrophils % % Lymphocytes % % Monocytes % % Eosinophils % % Basophils % % Neutrophils # (1.3-7.7) k/uL Lymphocytes # (1.0-4.8) k/uL Monocytes # (0-1.0) k/uL Eosinophils # (0-0.7) k/uL Basophils # (0-0.2) k/uL PT (9.0-12.0) sec INR (<1.2) APTT (22.0-30.0) sec Sodium (137-145) mmol/L Potassium (3.5-5.1) mmol/L Chloride (98-107) mmol/L Carbon Dioxide (22-30) mmol/L Anion Gap mmol/L BUN (7-17) mg/dL Creatinine (0.52-1.04) mg/dL Est GFR (CKD-EPI)AfAm (>60 ml/min/1.73 sqM) Est GFR (CKD-EPI)NonAf (>60 ml/min/1.73 sqM) Glucose (74-99) mg/dL Estimated Ave Glu mg/dL 136 Hemoglobin A1c 6.4 H (0.0-6.0) % Calcium (8.4-10.2) mg/dL Phosphorus (2.5-4.5) mg/dL Magnesium (1.6-2.3) mg/dL Total Bilirubin (0.2-1.3) mg/dL AST (14-36) U/L ALT (4-34) U/L Alkaline Phosphatase (38-126) U/L Troponin I (0.000-0.034) ng/mL NT-Pro-B Natriuret Pep pg/mL Total Protein (6.3-8.2) g/dL Albumin (3.5-5.0) g/dL Triglycerides 158.00 H (0.00-149.00) mg/dL Cholesterol 128.00 (0.00-200.00) mg/dL LDL Cholesterol, Calc 49.4 (0.0-131.0) mg/dL VLDL Cholesterol, Calc 31.60 (5.00-40.00) mg/dL HDL Cholesterol 47.00 (40.00-60.00) mg/dL Cholesterol/HDL Ratio 2.72 Ratio Urine Color Urine Appearance (Clear) Urine pH (5.0-8.0) Ur Specific [place] (1.001-1.035) Urine Protein (Negative) Urine Glucose (UA) (Negative) Urine Ketones (Negative) Urine Blood (Negative) Urine Nitrite (Negative) Urine Bilirubin (Negative) Urine Urobilinogen (<2.0) mg/dL Ur Leukocyte Esterase (Negative) Urine RBC (0-5) /hpf Urine WBC (0-5) /hpf Ur Squamous Epith Cells (0-4) /hpf Urine Bacteria (None) /hpf Urine Mucus (None) /hpf - Radiology Data Radiology results: report reviewed (CT head and pelvis negative for acute disease), image reviewed Critical Care Time Critical Care Time: Yes Total Critical Care Time: 31 Disposition Clinical Impression: Cystitis, Urinary tract infection, Atrial fibrillation with RVR, Hematuria Disposition: ADMITTED IP TO THIS HOSP Condition: Fair Is patient prescribed a controlled substance at d/c from ED?: No Time of Disposition: 05:45
[2022-04-13 04:32] LABS: Basophils # (A) 0.1 k/uL (0-0.2); Basophils % (A) 1 %; Eosinophils # (A) 0.2 k/uL (0-0.7); Eosinophils % (A) 2 %; HCT 42.1 % (34.0-46.0); HGB 14.5 gm/dL (11.4-16.0); Lymphocytes # (A) 1.5 k/uL (1.0-4.8); Lymphocytes % (A) 21 %; MCHC 34.5 g/dL (31.0-37.0); MCV 92.9 fL (80.0-100.0); Mean Platelet Volume 7.5; Monocytes # (A) 0.6 k/uL (0-1.0); Monocytes % (A) 8 %; Neutrophils # (A) 4.9 k/uL (1.3-7.7); Neutrophils % (A) 67 %; Platelet Count 265 k/uL (150-450); RBC 4.53 m/uL (3.80-5.40); RDW 13.2 % (11.5-15.5); WBC 7.3 k/uL (3.8-10.6)
[2022-04-13 04:41] LABS: Appearance,Urine Cloudy (Clear); Bacteria,Urine Occasional /hpf; Bilirubin,Urine Negative (Negative); Blood,Urine Large (Negative); Color,Urine Light Red; Glucose,Urine (UA) Negative (Negative); Ketones,Urine Negative (Negative); Leukocyte Esterase,Urine Large (Negative); Mucus,Urine Rare /hpf; Nitrite,Urine Negative (Negative); Protein,Urine 1+ (Negative); RBC,Urine 176 /hpf (0-5); Specific Gravity,Urine 1.006 (1.001-1.035); Squamous Epithelial Cell,Urine 1 /hpf (0-4); Urobilinogen,Urine <2.0 mg/dL (<2.0); WBC,Urine 85 /hpf (0-5)
[2022-04-13 04:44] LABS: Albumin 3.8 g/dL (3.5-5.0); Calcium 9.7 mg/dL (8.4-10.2); Magnesium 1.6 mg/dL (1.6-2.3); Phosphorus 3.7 mg/dL (2.5-4.5); Potassium 3.5 mmol/L (3.5-5.1); Total Bilirubin 0.4 mg/dL (0.2-1.3); Total Protein 6.5 g/dL (6.3-8.2)
[2022-04-13] MEDS ORDERED: DILTIAZEM DRIP BOLUS FROM BAG 1 MG SOLN IV ONE (04:45)
[2022-04-13 04:47] LABS: Partial Thromboplastin Time 23.7 sec (22.0-30.0); Prothrombin Time 10.5 sec (9.0-12.0)
--- NOTE | 2022-04-13 04:51 | CT ---
EXAMINATION TYPE: CT abdomen pelvis wo con DATE OF EXAM: 04/13/2022 COMPARISON: None HISTORY: Blood in urine, weakness. CT DLP: 1124.5 mGycm Automated exposure control for dose reduction was used. Images obtained from the diaphragm to the floor the pelvis without contrast. Lung bases are clear. No pleural effusion. Heart size is normal. No pericardial effusion. Liver splee n and stomach pancreas appear intact. The bile ducts are not dilated. There is large midline ventral hernia that contains transverse colon. The opening is 3.3 cm. There is incarceration. There is no adrenal mass. Kidneys have normal size. There is left-sided hydronephrosis and hydrourete r. There are 2 obstructing calculi in the distal left ureter that measure 5 mm. Bladder distends smoo thly. There is 3 cm right-sided calcified uterine fibroid. No inguinal hernia. No free fluid in the p maryanne. There are multiple sigmoid diverticula. No diverticulitis. There is broad-based lower abdomina l ventral hernia. There are surgical clips from previous hernia surgery. No inguinal hernia. There ar e bilateral renal cortical cysts that measure up to 3 cm. No mesenteric edema. No ascites or free air. No sign of a bowel obstruction. There is L4-5 and L5-S1 degenerative disc space narrowing and spur formation. No compression fracture . The bony pelvis is intact. The hip joints are intact. There is L4-5 first-degree spondylolisthesis. Appendix not well seen. No sign of thickened appendix. IMPRESSION: Obstructing calculi in the distal left ureter with moderate left-sided hydronephrosis and hydroureter . Large anterior abdominal wall ventral hernia containing transverse colon. Smaller broad-based lower abdominal ventral hernia. Colonic diverticulosis without diverticulitis.
[2022-04-13] MEDS: DILTIAZEM 125 MG in SODIUM CHLORIDE 0.9% 100 ML IV SCH (04:56)
[2022-04-13] MEDS ORDERED: METOPROLOL TARTRATE 5 MG/5 ML VIAL IVP STA (05:14)
[2022-04-13] MEDS ORDERED: NALOXONE 0.4 MG/ML 1 ML VIAL IV PRN (05:40)
[2022-04-13] MEDS ORDERED: ONDANSETRON 4 MG/2 ML VIAL IVP PRN (05:40)
[2022-04-13] MEDS ORDERED: MORPHINE SULFATE 4 MG/ML SYRINGE IV PRN (05:40)
[2022-04-13] MEDS: SODIUM CHLORIDE 0.9% 1,000 ML IV SCH ×2 (05:51→15:48)
--- NOTE | 2022-04-13 13:57 | P.GSCN ---
History of Present Illness Consult date: 04/13/22 Reason for Consult: Hematuria/stone Requesting physician: Chadwick Vergara History of present illness: The patient is a 76 year-old female with a history of hyperlipidemia, hypertension, right breast cancer s/p lumpectomy and hormone therapy, and bilateral PE's and is on Eliquis. She presented to the emergency department today with generalized weakness and hematuria. The patient was found to be in A. fib with RVR rates and a Cardizem drip. Cardiology was consulted. CT abdomen and pelvis without contrast was done which revealed two obstructing calculi in the distal left ureter that measure 5 mm. There is left-sided hydronephrosis and height hydroureter. Review of Systems - Constitutional Reports weakness, Denies chills, Denies fever - Cardiovascular Reports palpitations, Denies chest pain, Denies shortness of breath - Respiratory Denies cough - Gastrointestinal Reports loss of appetite, Denies nausea, Denies vomiting - Genitourinary Genitourinary: Reports hematuria, Reports nocturia, Denies dysuria, Denies flank pain, Denies urgency, Denies urinary frequency Past Medical History Past Medical History: Hyperlipidemia, Hypertension Additional Past Medical History / Comment(s): rt breast cancer; She is status post right breast lumpectomy and axillary node sampling on 9119. The right breast revealed a 1.2 cm invasive ductal carcinoma grade 2 ER/[place] positive HER- 2/rohan negative G2. The margins were negative. The lymph nodes were all negative for cancer. History of Any Multi-Drug Resistant Organisms: None Reported Past Surgical History: Appendectomy, Cholecystectomy, Hernia Repair, Orthopedic Surgery Additional Past Surgical History / Comment(s): right total knee 2011 Past Anesthesia/Blood Transfusion Reactions: No Reported Reaction Past Psychological History: No Psychological Hx Reported Smoking Status: Never smoker Past Alcohol Use History: None Reported Past Drug Use History: None Reported - Past Family History Mother Family Medical History: Cancer Additional Family Medical History / Comment(s): breast CA Father Family Medical History: Cancer Additional Family Medical History / Comment(s): scrotal CA Medications and Allergies Home Medications Medication Instructions Recorded Confirmed Type Aspirin [Adult Low Dose Aspirin EC] 81 mg PO HS 06/22/19 04/13/22 History Simvastatin [Zocor] 20 mg PO HS 06/22/19 04/13/22 History Naproxen Sodium [Aleve] 440 mg PO DAILY 12/20/19 04/13/22 History Atenolol/Chlorthalidone 1 tab PO DAILY 05/13/20 04/13/22 History [Atenolol/Chlorthalidone 100-25] Cholecalciferol (Vitamin D3) 125 mcg PO HS 05/13/20 04/13/22 History [Vitamin D3 (5000 Iu)] Letrozole [Femara] 2.5 mg PO DAILY 07/24/20 04/13/22 History Apixaban [Eliquis] 5 mg PO BID 04/13/22 04/13/22 History metFORMIN HCL [Glucophage] 500 mg PO DAILY 04/13/22 04/13/22 History Allergies Allergy/AdvReac Type Severity Reaction Status Date / Time No Known Allergies Allergy Verified 04/13/22 07:36 Surgical - Exam Vital Signs Temp Pulse Resp BP Pulse Ox 98 F 78 16 126/82 96 04/13/22 03:48 04/13/22 03:48 04/13/22 03:48 04/13/22 03:48 04/13/22 03:48 General: Well developed, well nourished. No acute distress. HEENT: Head is atraumatic, normocephalic. Lungs: Respirations even and nonlabored. On RA Abdomen/GI: Soft. .No guarding, rigidity, or abdominal tenderness. : No suprapubic tenderness. No flank pain Skin: Warm and dry Neurologic: Awake, alert and oriented times 3. CN II-XII grossly intact. Psychiatric: Appropriate mood and affect. Results - Labs 04/13/22 04:19 04/13/22 04:19 Abnormal Lab Results - Last 24 Hours (Table) 04/13/22 04/13/22 04/13/22 Range/Units 04:09 04:19 04:19 Chloride 112 H (98-107) mmol/L Carbon Dioxide 20 L (22-30) mmol/L BUN 25 H (7-17) mg/dL Glucose 186 H (74-99) mg/dL Troponin I 0.060 H* (0.000-0.034) ng/mL Urine Appearance Cloudy H (Clear) Urine Protein 1+ H (Negative) Urine Blood Large H (Negative) Ur Leukocyte Esterase Large H (Negative) Urine RBC 176 H (0-5) /hpf Urine WBC 85 H (0-5) /hpf Urine Bacteria Occasional H (None) /hpf Urine Mucus Rare H (None) /hpf 04/13/22 04/13/22 Range/Units 07:10 10:23 Chloride (98-107) mmol/L Carbon Dioxide (22-30) mmol/L BUN (7-17) mg/dL Glucose (74-99) mg/dL Troponin I 0.453 H* 0.927 H* (0.000-0.034) ng/mL Urine Appearance (Clear) Urine Protein (Negative) Urine Blood (Negative) Ur Leukocyte Esterase (Negative) Urine RBC (0-5) /hpf Urine WBC (0-5) /hpf Urine Bacteria (None) /hpf Urine Mucus (None) /hpf Microbiology - Last 24 Hours (Table) 04/13/22 04:09 Urine Culture - Preliminary Urine,Voided Diabetes panel 04/13/22 Range/Units 04:19 Sodium 142 (137-145) mmol/L Potassium 3.5 (3.5-5.1) mmol/L Chloride 112 H (98-107) mmol/L Carbon Dioxide 20 L (22-30) mmol/L BUN 25 H (7-17) mg/dL Creatinine 0.84 (0.52-1.04) mg/dL Glucose 186 H (74-99) mg/dL Calcium 9.7 (8.4-10.2) mg/dL AST 26 (14-36) U/L ALT 22 (4-34) U/L Alkaline Phosphatase 83 (38-126) U/L Total Protein 6.5 (6.3-8.2) g/dL Albumin 3.8 (3.5-5.0) g/dL Calcium panel 04/13/22 Range/Units 04:19 Calcium 9.7 (8.4-10.2) mg/dL Phosphorus 3.7 (2.5-4.5) mg/dL Albumin 3.8 (3.5-5.0) g/dL Pituitary panel 04/13/22 Range/Units 04:19 Sodium 142 (137-145) mmol/L Potassium 3.5 (3.5-5.1) mmol/L Chloride 112 H (98-107) mmol/L Carbon Dioxide 20 L (22-30) mmol/L BUN 25 H (7-17) mg/dL Creatinine 0.84 (0.52-1.04) mg/dL Glucose 186 H (74-99) mg/dL Calcium 9.7 (8.4-10.2) mg/dL Adrenal panel 04/13/22 Range/Units 04:19 Sodium 142 (137-145) mmol/L Potassium 3.5 (3.5-5.1) mmol/L Chloride 112 H (98-107) mmol/L Carbon Dioxide 20 L (22-30) mmol/L BUN 25 H (7-17) mg/dL Creatinine 0.84 (0.52-1.04) mg/dL Glucose 186 H (74-99) mg/dL Calcium 9.7 (8.4-10.2) mg/dL Total Bilirubin 0.4 (0.2-1.3) mg/dL AST 26 (14-36) U/L ALT 22 (4-34) U/L Alkaline Phosphatase 83 (38-126) U/L Total Protein 6.5 (6.3-8.2) g/dL Albumin 3.8 (3.5-5.0) g/dL - Imaging CT scan - abdomen: report reviewed CT scan - pelvis: report reviewed EKG: report reviewed Assessment and Plan Assessment: The patient was examined in the emergency room with her present. Her vitals are stable, she is now sinus christian with a heart rate of 57 bpm. She denies any fevers, chills, nausea, or vomiting. She denies any flank pain or dysuria. No urinary frequency or urgency. She does not have a history of kidney stones and is surprised when she was told that she has them. She denies any previous urological problems or surgeries. Her WBC is 7.3, Hgb 14.5, serum creatinine 0.84. Urinalysis is suspicious for UTI, urine culture is pending. She was informed that stones that are 5mm or less have a good chance of spontaneously passing without any intervention. Since she is not exhibiting any pain/symptoms, she is advised to wait for them to pass. (1) Ureteral calculi Current Visit: Yes Status: Acute Code(s): N20.1 - CALCULUS OF URETER SNOMED Code(s): 81034977 Plan: - Increase oral fluid intake/ IV fluids - Continue current pain regimen - Awaiting finalization of urine culture - Monitor renal function - Monitor hemoglobin - Further recommendations to follow from urologist Thank you for this consultation Impression and plan of care have been directed as dictated by the signing physician. Kacy Lilly nurse practitioner acting as scribe for signing physician. Kacy Lilly [facility] [id number] Email: [email or web address] I have reviewed the x-rays, laboratory examinations examined discussed the situation with the patient and her . I concur with Kacy Lilly's report. Given that she is asymptomatic, was recently diagnosed with A. fib, no infection, normal renal function I think it appropriate that she might pass this on her own. We'll follow with this patient. Rogerio Vera M.D.
[2022-04-13 16:47] LABS: Glucose,Whole Blood 135 mg/dL (70-110)
[2022-04-13] MEDS ORDERED: NITROGLYCERIN SL TABS 0.4 MG TAB SUBLINGUAL PRN (17:54)
[2022-04-13] MEDS ORDERED: ALPRAZolam 0.5 MG TAB PO PRN (17:54)
[2022-04-13] MEDS ORDERED: ALPRAZolam 0.25 MG TAB PO PRN (17:54)
--- NOTE | 2022-04-13 17:54 | P.CRDCN ---
History of Present Illness History of present illness: HISTORY OF PRESENTING ILLNESS Patient is a pleasant 76-year-old female with history of hypertension, hyperlipidemia, right breast cancer status post one pack me, bilateral pulmonary embolisms status post EKOS and on anticoagulation who presented with initial mild hematuria however then noticed feeling of general weakness and "not feeling". She states she may have felt a little bit of jaw pain however no obvious chest pain or pressure. Did admit to some fatigue and somewhat short of breath. She was noted to have A. fib with RVR with heart rates in the 130s to 140s. She is placed on Cardizem drip and return to normal sinus rhythm. Troponins elevated up to 0.9. She denies any history of CAD or prior heart catheterization. Prior echo which showed preserved EF with mildly increased RVSP. REVIEW OF SYSTEMS At the time of my exam: CONSTITUTIONAL: Denies fever or chills. CARDIOVASCULAR: Denies chest pain, +shortness of breath, no orthopnea, PND or palpitations. RESPIRATORY: Denies cough. GASTROINTESTINAL: Denies abdominal pain, diarrhea, constipation, nausea or vomiting. MUSCULOSKELETAL: Denies myalgias. NEUROLOGIC: Denies numbness, tingling or weakness. ENDOCRINE: Denies fatigue, weight change, polydipsia or polyurina. GENITOURINARY: Denies burning, hematuria or urgency with micturation. HEMATOLOGIC: Denies history of anemia or bleeding. PHYSICAL EXAMINATION Vital signs reviewed. CONSTITUTIONAL: No apparent distress. HEENT: Head is normocephalic. Pupils are equal, round. Sclerae anicteric. Mucous membranes of the mouth are moist. No JVD. No carotid bruit. CHEST EXAMINATION: Lungs are clear to auscultation. No chest wall tenderness is noted on palpation or with deep breathing. HEART EXAMINATION: Regular rate and rhythm. S1, S2 heard. No murmurs, gallops or rub. ABDOMEN: Soft, nontender. Positive bowel sounds. EXTREMITIES: 2+ peripheral pulses, no lower extremity edema and no calf tenderness. NEUROLOGIC EXAMINATION: Patient is awake, alert and oriented x3. ASSESSMENT 1 paroxysmal atrial fibrillation currently sinus rhythm 2. Non-STEMI, likely exacerbated by A. fib however rule out underlying significant CAD 3. Hypertension 4. 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 Hematuria with kidney stone 6. History of breast cancer PLAN Patient currently sinus rhythm and feels close to back to normal. Patient with new onset of A. fib and are in the anticoagulated. Continue with atenolol. May consider more rates or rhythm control however also has some bradycardia. Significant troponin elevation with concern of underlying CAD. Therefore discussed possible stress testing versus heart catheterization. Patient would like to check with however likely heart catheterization 04/14. Past Medical History Past Medical History: Hyperlipidemia, Hypertension Additional Past Medical History / Comment(s): rt breast cancer; She is status post right breast lumpectomy and axillary node sampling on 9119. The right breast revealed a 1.2 cm invasive ductal carcinoma grade 2 ER/CT positive HER- 2/rohan negative G2. The margins were negative. The lymph nodes were all negative for cancer. History of Any Multi-Drug Resistant Organisms: None Reported Past Surgical History: Appendectomy, Cholecystectomy, Hernia Repair, Orthopedic Surgery Additional Past Surgical History / Comment(s): right total knee 2011 Past Anesthesia/Blood Transfusion Reactions: No Reported Reaction Past Psychological History: No Psychological Hx Reported Smoking Status: Never smoker Past Alcohol Use History: None Reported Past Drug Use History: None Reported - Past Family History Mother Family Medical History: Cancer Additional Family Medical History / Comment(s): breast CA Father Family Medical History: Cancer Additional Family Medical History / Comment(s): scrotal CA Medications and Allergies Home Medications Medication Instructions Recorded Confirmed Type Aspirin [Adult Low Dose Aspirin EC] 81 mg PO HS 06/22/19 04/13/22 History Simvastatin [Zocor] 20 mg PO HS 06/22/19 04/13/22 History Naproxen Sodium [Aleve] 440 mg PO DAILY 12/20/19 04/13/22 History Atenolol/Chlorthalidone 1 tab PO DAILY 05/13/20 04/13/22 History [Atenolol/Chlorthalidone 100-25] Cholecalciferol (Vitamin D3) 125 mcg PO HS 05/13/20 04/13/22 History [Vitamin D3 (5000 Iu)] Letrozole [Femara] 2.5 mg PO DAILY 07/24/20 04/13/22 History Apixaban [Eliquis] 5 mg PO BID 04/13/22 04/13/22 History metFORMIN HCL [Glucophage] 500 mg PO DAILY 04/13/22 04/13/22 History Allergies Allergy/AdvReac Type Severity Reaction Status Date / Time No Known Allergies Allergy Verified 04/13/22 07:36 Physical Exam Vitals: Vital Signs Temp Pulse Pulse Resp BP BP Pulse Ox 04/13/22 15:58 98.8 F 54 L 18 114/69 97 04/13/22 15:16 50 L 19 124/55 99 04/13/22 13:29 57 L 12 131/62 97 04/13/22 11:00 57 L 15 131/59 98 04/13/22 07:37 89 17 116/62 97 04/13/22 06:25 53 L 15 150/78 98 04/13/22 05:00 131 H 16 114/61 96 04/13/22 04:56 131 H 18 120/81 96 04/13/22 03:48 98 F 78 16 126/82 96 Intake and Output 04/13/22 04/13/22 04/13/22 06:59 14:59 22:59 Intake Total 4.5 Balance 4.5 Intake: Intake, IV Titration 4.5 Amount Diltiazem 125 mg In 4.5 Sodium Chloride 0.9% 100 ml @ 5 MG/HR 5 mls/hr IV .Q24H [facility] Rx#:[id number] Other: Weight 94.801 kg 94.801 kg Results 04/13/22 04:19 04/13/22 04:19 Cardiac Enzymes 04/13/22 04/13/22 04/13/22 Range/Units 04:19 04:19 07:10 AST 26 (14-36) U/L Troponin I 0.060 H* 0.453 H* (0.000-0.034) ng/mL 04/13/22 Range/Units 10:23 AST (14-36) U/L Troponin I 0.927 H* (0.000-0.034) ng/mL Coagulation 04/13/22 Range/Units 04:19 PT 10.5 (9.0-12.0) sec APTT 23.7 (22.0-30.0) sec CBC 04/13/22 Range/Units 04:19 WBC 7.3 (3.8-10.6) k/uL RBC 4.53 (3.80-5.40) m/uL Hgb 14.5 (11.4-16.0) gm/dL Hct 42.1 (34.0-46.0) % Plt Count 265 (150-450) k/uL Comprehensive Metabolic Panel 04/13/22 Range/Units 04:19 Sodium 142 (137-145) mmol/L Potassium 3.5 (3.5-5.1) mmol/L Chloride 112 H (98-107) mmol/L Carbon Dioxide 20 L (22-30) mmol/L BUN 25 H (7-17) mg/dL Creatinine 0.84 (0.52-1.04) mg/dL Glucose 186 H (74-99) mg/dL Calcium 9.7 (8.4-10.2) mg/dL AST 26 (14-36) U/L ALT 22 (4-34) U/L Alkaline Phosphatase 83 (38-126) U/L Total Protein 6.5 (6.3-8.2) g/dL Albumin 3.8 (3.5-5.0) g/dL Current Medications Generic Name Dose Route Start Last Admin Trade Name Freq PRN Reason Stop Dose Admin Apixaban 5 mg 04/13/22 21:00 Apixaban 5 Mg Tab PO BID [facility] Protocol Aspirin 81 mg 04/13/22 21:00 Aspirin 81 Mg PO HS [facility] Atenolol 100 mg 04/14/22 09:00 Atenolol 50 Mg Tab PO DAILY [facility] Atorvastatin Calcium 10 mg 04/13/22 21:00 Atorvastatin 10 Mg Tab PO HS [facility] Chlorthalidone 25 mg 04/14/22 09:00 Chlorthalidone 25 Mg Tab PO DAILY [facility] Diltiazem HCl 125 mg/ Sodium 125 mls @ 5 mls/hr 04/13/22 04:50 04/13/22 05:50 Chloride IV 0 mg/hr .Q24H JULIETH 0 mls/hr Infusion 5 MG/HR Sodium Chloride 1,000 mls @ 75 mls/hr 04/13/22 05:45 04/13/22 15:48 Saline 0.9% IV 75 mls/hr .[id number] JULIETH Administration Letrozole 2.5 mg 04/14/22 09:00 Letrozole 2.5 Mg Tab PO DAILY JULIETH Morphine Sulfate 4 mg 04/13/22 05:40 Morphine Sulfate 4 Mg/Ml Syringe IV Q4HR PRN Severe Pain (Scale 7 to 10) Naloxone HCl 0.2 mg 04/13/22 05:40 Naloxone 0.4 Mg/Ml 1 Ml Vial IV Q2M PRN Opioid Reversal Ondansetron HCl 4 mg 04/13/22 05:40 Ondansetron 4 Mg/2 Ml Vial IVP Q8HR PRN Nausea And Vomiting Intake and Output 04/13/22 04/13/22 04/13/22 06:59 14:59 22:59 Intake Total 4.5 Balance 4.5 Intake: Intake, IV Titration 4.5 Amount Diltiazem 125 mg In 4.5 Sodium Chloride 0.9% 100 ml @ 5 MG/HR 5 mls/hr IV .Q24H [facility] Rx#:[id number] Other: Weight 94.801 kg 94.801 kg Patient Weight 04/14/22 06:59 Weight 94.801 kg 04/13/22 04:19 04/13/22 04:19
[2022-04-13 19:58] LABS: Glucose,Whole Blood 126 mg/dL (70-110)
[2022-04-13] MEDS: APIXABAN 5 MG TAB PO SCH ×2 (20:45→23:45)
[2022-04-13] MEDS: ASPIRIN 81 MG PO SCH (20:45)
[2022-04-13] MEDS: ATORVASTATIN 10 MG TAB PO SCH (20:45)
--- NOTE | 2022-04-13 20:50 | HP ---
HISTORY AND PHYSICAL CHIEF COMPLAINT: Weakness and palpitations with shortness of breath. HISTORY OF PRESENT ILLNESS: This is another admission for this 76-year-old obese white female with history of diabetes and hypertension. She has also had a history of pulmonary emboli. She is currently on anticoagulation for that. She came to the emergency room with a pulse rate around 130, in atrial fibrillation. REVIEW OF SYSTEMS: She denies any pleurisy, hemoptysis, fever, chills, abdominal pain, etc. Past medical history, family history, and personal and social histories reveal that she is on: 1. Tenoretic 100. 2. Simvastatin 20. 3. Metformin 500 once a day. 4. Tramadol. 5. Eliquis 5 mg twice a day. 6. Letrozole 2.5 mg once a day for prophylaxis after breast cancer. 7. 81 mg of aspirin. 8. Vitamin D. She is not allergic to medication. History is otherwise unremarkable and unchanged. She does not smoke. PHYSICAL EXAMINATION: VITAL SIGNS: Pulse is 130 and blood pressure is 132/78. She is afebrile. GENERAL: She appeared to be overweight and in no acute distress. SKIN: Color is normal. Skin is warm and dry. LYMPH NODES: Not enlarged. HEAD, EARS, EYES, NOSE, MOUTH, AND THROAT: Normal. NECK: Neck veins are not distended. Carotids are normal. CHEST: Clear. CARDIAC: Demonstrated rapid heart rate. ABDOMEN: Slightly protuberant, soft, and nontender. EXTREMITIES: Normal. NEUROLOGIC: She is intact. ASSESSMENT: She is admitted to the hospital with diagnoses of: 1. New-onset atrial fibrillation with rapid ventricular response. 2. History of pulmonary emboli. 3. History of breast cancer. 4. Hypertension. 5. Type 2 guk-fbtlwkz-enfraxent diabetes mellitus. PLAN: 1. Bedrest. 2. IV fluids. 3. Serial EKGs and enzymes. 4. Consult with Cardiology. MMODL / IJN: [id number] /
[2022-04-14] MEDS: SODIUM CHLORIDE 0.9% 1,000 ML IV SCH ×2 (03:42→19:53)
[2022-04-14] MEDS ORDERED: ASPIRIN 325 MG TAB PO ONE (05:00)
[2022-04-14] MEDS ORDERED: ATORVASTATIN 80 MG TAB PO ONE (05:00)
[2022-04-14] MEDS: DILTIAZEM 125 MG in SODIUM CHLORIDE 0.9% 100 ML IV SCH ×2 (05:06→22:37)
[2022-04-14] MEDS: atenoloL 50 MG TAB PO SCH (05:25)
[2022-04-14 06:04] LABS: Glucose,Whole Blood 134 mg/dL (70-110)
[2022-04-14] MEDS ORDERED: HEPARIN SODIUM,PORCINE 2,500 UNIT in SODIUM CHLORIDE 0.9% 250 ML IRRIGATION PRN (07:00)
[2022-04-14] MEDS ORDERED: HEPARIN SODIUM,PORCINE 10,000 UNIT in SODIUM CHLORIDE 0.9% 1,000 ML IRRIGATION PRN (07:00)
--- NOTE | 2022-04-14 09:09 | P.PN ---
Subjective HISTORY OF PRESENTING ILLNESS Patient is a pleasant 76-year-old female with history of hypertension, hyperlipidemia, right breast cancer status post one pack me, bilateral pulmonary embolisms status post EKOS and on anticoagulation who presented with initial mild hematuria however then noticed feeling of general weakness and "not feeling". She states she may have felt a little bit of jaw pain however no obvious chest pain or pressure. Did admit to some fatigue and somewhat short of breath. She was noted to have A. fib with RVR with heart rates in the 130s to 140s. She is placed on Cardizem drip and return to normal sinus rhythm. Tropon ins elevated up to 0.9. She denies any history of CAD or prior heart catheterization. Prior echo which showed preserved EF with mildly increased RVSP. 04/14 Patient seen and examined. Remains in sinus rhythm. No chest pain or pressure. Patient agreeable to heart catheterization today. PHYSICAL EXAMINATION Vital signs reviewed. CONSTITUTIONAL: No apparent distress. HEENT: Head is normocephalic. Pupils are equal, round. Sclerae anicteric. Mucous membranes of the mouth are moist. No JVD. No carotid bruit. CHEST EXAMINATION: Lungs are clear to auscultation. No chest wall tenderness is noted on palpation or with deep breathing. HEART EXAMINATION: Regular rate and rhythm. S1, S2 heard. No murmurs, gallops or rub. ABDOMEN: Soft, nontender. Positive bowel sounds. EXTREMITIES: 2+ peripheral pulses, no lower extremity edema and no calf tenderness. NEUROLOGIC EXAMINATION: Patient is awake, alert and oriented x3. ASSESSMENT 1 paroxysmal atrial fibrillation currently sinus rhythm 2. Non-STEMI, likely exacerbated by A. fib however rule out underlying significant CAD 3. Hypertension 4. 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 Hematuria with kidney stone 6. History of breast cancer PLAN Her main's in sinus rhythm. Her [place] is held this morning and plan for heart catheterization today given non-STEMI. If heart catheterization unrevealing patient may be discharged home later this afternoon on home Atenolol dose. Objective - Vital Signs Vital signs: Vital Signs Temp 98.0 F 04/14/22 08:00 Pulse 49 L 04/14/22 08:00 Resp 22 04/14/22 08:00 BP 152/74 04/14/22 08:00 Pulse Ox 98 04/14/22 08:00 FiO2 Intake & Output 04/13/22 04/14/22 04/14/22 18:59 06:59 18:59 Weight 94.801 kg Other: # Voids 1 - Labs CBC & Chem 7: 04/13/22 04:19 04/13/22 04:19 Labs: Abnormal Lab Results - Last 24 Hours (Table) 04/13/22 04/13/22 04/13/22 Range/Units 10:23 16:45 19:56 POC Glucose (mg/dL) 135 H 126 H (70-110) mg/dL Troponin I 0.927 H* (0.000-0.034) ng/mL 04/14/22 Range/Units 06:03 POC Glucose (mg/dL) 134 H (70-110) mg/dL Troponin I (0.000-0.034) ng/mL Microbiology - Last 24 Hours (Table) 04/13/22 04:09 Urine Culture - Preliminary Urine,Voided
--- NOTE | 2022-04-14 11:39 | P.PN ---
Subjective Progress Note Date: 04/14/22 Principal diagnosis: Afib with RVR The patient is a 76 year-old female with a history of hyperlipidemia, hypertension, right breast cancer s/p lumpectomy and hormone therapy, and b ilateral PE's and is on Eliquis. She presented to the emergency department today with generalized weakness and hematuria. The patient was found to be in A. fib with RVR rates and a Cardizem drip. Cardiology was consulted. CT abdomen and pelvis without contrast was done which revealed two obstructing calculi in the distal left ureter that measure 5 mm. There is left-sided hydronephrosis and height hydroureter. 04/13 The patient was examined in the emergency room with her present. Her vitals are stable, she is now sinus christian with a heart rate of 57 bpm. She denies any fevers, chills, nausea, or vomiting. She denies any flank pain or dysuria. No urinary frequency or urgency. She does not have a history of kidney stones and is surprised when she was told that she has them. She denies any previous urological problems or surgeries. Her WBC is 7.3, Hgb 14.5, serum creatinine 0.84. Urinalysis is suspicious for UTI, urine culture is pending. She was informed that stones that are 5mm or less have a good chance of spontaneously passing without any intervention. Since she is not exhibiting any pain/symptoms, she is advised to wait for them to pass. Objective - Vital Signs Vital signs: Vital Signs Temp 98.0 F 04/14/22 08:00 Pulse 49 L 04/14/22 08:00 Resp 16 04/14/22 08:00 BP 152/74 04/14/22 08:00 Pulse Ox 98 04/14/22 08:00 FiO2 Intake & Output 04/13/22 04/14/22 04/14/22 18:59 06:59 18:59 Weight 94.801 kg Other: # Voids 1 - Exam General: Well developed, well nourished. No acute distress. HEENT: Head is atraumatic, normocephalic. Lungs: Respirations even and nonlabored. On RA Abdomen/GI: Soft. No guarding, rigidity, or abdominal tenderness. : No suprapubic tenderness. No flank pain Skin: Warm and dry Neurologic: Awake, alert and oriented times 3. CN II-XII grossly intact. Psychiatric: Appropriate mood and affect. - Labs CBC & Chem 7: 04/13/22 04:19 04/13/22 04:19 Labs: Abnormal Lab Results - Last 24 Hours (Table) 04/13/22 04/13/22 04/14/22 Range/Units 16:45 19:56 06:03 POC Glucose (mg/dL) 135 H 126 H 134 H (70-110) mg/dL Microbiology - Last 24 Hours (Table) 04/13/22 04:09 Urine Culture - Final Urine,Voided Assessment and Plan Assessment: The patient is up in a chair, Her is present. She is afebile. She denies any flank or abdominal pain. She denies any dysuria or urgency. She reports that her hematuria has resolved and she is voiding without difficulty. No new labs available today. The patient has had elevated troponins and is going for a cardiac catheterization today. The patient is asymptomatic from her kidney stone and has elected to let it pass spontaneously. The patient was examined by me today. I concur with the above note. GIven that she is asx, has normal renal function plus the new onset cardiac issues I prefer to not give her an anesthetic and do surgery at this point in time. we will follow Rogerio Vera MD (1) Ureteral calculi Current Visit: Yes Status: Acute Code(s): N20.1 - CALCULUS OF URETER SNOMED Code(s): 39157438 Plan: - Increase oral fluid intake/ IV fluids - Continue current pain regimen - Monitor renal function - Follow up with Dr. Vera in office Thank you for this consultation Impression and plan of care have been directed as dictated by the signing physician. Kacy Lilly nurse practitioner acting as scribe for signing physician. Kacy Lilly [facility] Palliative Care/Urology [facility] [id number] Email: [email or web address]
[2022-04-14] MEDS ORDERED: VERAPAMIL 2.5 MG/ML 2 ML AMP ONE (11:48)
[2022-04-14] MEDS ORDERED: IV FLUID CONTINUATION 700 ML IV ONE (11:59)
[2022-04-14] MEDS ORDERED: fentaNYL (PF) 50 MCG/ML 2 ML AMP ONE (12:10)
[2022-04-14] MEDS ORDERED: LIDOCAINE 2% (PF) 20 MG/ML 5 ML VIAL SQ ONE (12:20)
[2022-04-14] MEDS ORDERED: MIDAZOLAM 2 MG/2 ML VIAL IV ONE (12:21)
[2022-04-14] MEDS ORDERED: fentaNYL (PF) 50 MCG/ML 2 ML AMP IV ONE (12:21)
[2022-04-14] MEDS ORDERED: VERAPAMIL SYRINGE (5 MG/10 ML) INTRAARTER ONE (12:22)
[2022-04-14] MEDS ORDERED: HEPARIN SODIUM 1,000 UN/ML (10ML VL) IV ONE (12:26)
[2022-04-14] MEDS ORDERED: HEPARIN SODIUM 1,000 UN/ML (10ML VL) ONE (12:37)
[2022-04-14] MEDS ORDERED: IOPAMIDOL-370 125ML BTL INJ ONE (12:37)
--- NOTE | 2022-04-14 12:40 | P.CARDCATH ---
Description of Procedure: PROCEDURES PERFORMED: Left heart catheterization, bilateral coronary angiography INDICATION: NSTEMI CONSENT:I have discussed the risks, benefits and alternative therapies for the above-mentioned procedure and for both sedation/analgesia as well as necessary blood product administration, if indicated, as they pertain to this patient. The patient has indicated understanding and acceptance of the risks and procedures discussed. PROCEDURE: After the risks, benefits and alternatives of the above mentioned procedure explained in detail with the patient, informed consent was obtained. Patient was taken to the catheterization lab and prepped and draped in usual fashion. 1% lidocaine was used to anesthetize the left radial artery. A 6- [place] sheath was placed in the left radial artery using modified Seldinger technique. Left coronary angiography was performed with a 5-[place] JL 4.0 catheter and right coronary angiography was performed with a 5-[place] JR4 catheter in various views. A 5-[place] FR4 catheter was inserted into the left ventricle and pressure measurements were obtained. The left radial sheath was removed and a TR band was placed with hemostasis achieved. The patient tolerated the procedure well. Patient was transported back to the post catheterization holding area in stable condition. Conscious Sedation: Patient was monitored under the direct supervision of vision of myself for conscious sedation using Versed and fentanyl for a total duration of 15 minutes HEMODYNAMICS: Aorta: 133/78 LV: 131/5, LVEDP 15 SELECTIVE CORONARY ARTERIOGRAPHY: LEFT MAIN: The left main is a large caliber vessel which bifurcates into the LAD and circumflex. There is no significant stenosis. LEFT ANTERIOR DESCENDING CORONARY ARTERY: LAD is a large caliber vessel which wraps around to the apex. There is mild mid LAD 30% stenosis LEFT CIRCUMFLEX CORONARY ARTERY: Left circumflex is a moderate caliber vessel w ith mild 30% stenosis of the OM 2 branch. There are xiao-fi-tzcem collaterals RIGHT CORONARY ARTERY: The right coronary artery is a moderate caliber vessel which gives off a PDA and PLV branch and is the dominant vessel. There is 100% mid RCA stenosis FINAL IMPRESSION: 1. CAD as described above including 100% CREDIT CARD SPECIALIST RCA with [id number]-[id number] collaterals and 30% mid LAD and 30% OM 2 stenosis. 2. Normal left sided filling pressures PLAN: 1. Aggressive risk factor modification per most recent ACC/AHA guidelines. 2. Medical therapy of CREDIT CARD SPECIALIST unless has recurrent angina 3. Follow-up in the office in 1-2 weeks.
--- NOTE | 2022-04-14 13:25 | CA ---
Transthoracic Echo Report Name: Ana Echeverria Age: 76 Gender: F : 1945 Exam Date: 04/14/2022 09:15 Exam Location: [place] Stress Ht (in): 60 Wt (lb): 209 Ordering Physician: Jimbo Garcia DO ([email or web address]) Attending/Referring Phys: Car Detailer Nessa Briceño RDCS Procedure CPT: Indications: re: LV function Cardiac Hx: Technical Quality: Contrast 1: Total Dose (mL): Contrast 2: Total Dose (mL): MEASUREMENTS (Male / Female) Normal Values 2D ECHO LV Diastolic Diameter PLAX 5.0 cm 4.2 - 5.9 / 3.9 - 5.3 cm LV Systolic Diameter PLAX 3.8 cm IVS Diastolic Thickness 1.1 cm 0.6 - 1.0 / 0.6 - 0.9 cm LVPW Diastolic Thickness 1.5 cm 0.6 - 1.0 / 0.6 - 0.9 cm LV Relative Wall Thickness 0.5 RV Internal Dim ED PLAX 2.6 cm LA Systolic Diameter LX 3.5 cm 3.0 - 4.0 / 2.7 - 3.8 cm M-MODE Aortic Root Diameter MM 2.9 cm LA Systolic Diameter MM 3.3 cm LA Ao Ratio MM 1.1 MV E Point Septal Separation 0.7 cm AV Cusp Separation MM 2.0 cm DOPPLER MV Area PHT 3.6 cm??? Mitral E Point Velocity 78.1 cm/s Mitral A Point Velocity 105.8 cm/s Mitral E to A Ratio 0.7 MV Deceleration Time 210.7 ms MV E' Velocity 7.1 cm/s Mitral E to MV E' Ratio 11.1 FINDINGS Left Ventricle Mildly impaired LV function was EF between 45-50% Right Ventricle Normal right ventricular size and function. Right ventricular systolic pressure within normal limits. Right Atrium Normal right atrial size. Left Atrium Normal left atrial size. Mitral Valve Structurally normal mitral valve. Mild mitral regurgitation. Aortic Valve Trileaflet aortic valve. Tricuspid Valve Structurally normal tricuspid valve. Pulmonic Valve Structurally normal pulmonic valve. Pericardium No thickening/calcification of the pericardium. Aorta Normal size aortic root and proximal ascending aorta. CONCLUSIONS Mildly impaired LV function with EF between 45-50% Technically difficult study for interpretation Previewed by: Dr. Feliciano Carlson MD (Electronically Signed) Final Date: 14 April 2022 13:24
[2022-04-14] MEDS: LETROZOLE 2.5 MG TAB PO SCH (15:53)
[2022-04-14] MEDS: CHLORTHALIDONE 25 MG TAB PO SCH (15:53)
[2022-04-14 16:46] LABS: Glucose,Whole Blood 101 mg/dL (70-110)
[2022-04-14] MEDS: ASPIRIN 81 MG PO SCH (19:52)
[2022-04-14] MEDS: ATORVASTATIN 10 MG TAB PO SCH (19:52)
[2022-04-14] MEDS: ACETAMINOPHEN TAB 325 MG TAB PO PRN (19:52)
[2022-04-14] MEDS: APIXABAN 5 MG TAB PO SCH (19:52)
[2022-04-14 20:03] LABS: Glucose,Whole Blood 156 mg/dL (70-110)
[2022-04-15] MEDS: ACETAMINOPHEN TAB 325 MG TAB PO PRN ×2 (03:56→09:39)
[2022-04-15 06:02] LABS: Glucose,Whole Blood 126 mg/dL (70-110)
--- NOTE | 2022-04-15 07:52 | P.PN ---
Subjective HISTORY OF PRESENTING ILLNESS Patient is a pleasant 76-year-old female with history of hypertension, hyperlipidemia, right breast cancer status post one pack me, bilateral pulmonary embolisms status post EKOS and on anticoagulation who presented with initial mild hematuria however then noticed feeling of general weakness and "not feeling". She states she may have felt a little bit of jaw pain however no obvious chest pain or pressure. Did admit to some fatigue and somewhat short of breath. She was noted to have A. fib with RVR with heart rates in the 130s to 140s. She is placed on Cardizem drip and return to normal sinus rhythm. Tropon ins elevated up to 0.9. She denies any history of CAD or prior heart catheterization. Prior echo which showed preserved EF with mildly increased RVSP. 04/14 Patient seen and examined. Remains in sinus rhythm. No chest pain or pressure. Patient agreeable to heart catheterization today. 04/15 Patient seen and examined. Patient underwent heart catheterization yesterday from a left radial approach with findings of CT of the RCA and mild disease on the left. Denies any chest pain or pressure or shortness of breath. Remains in sinus rhythm PHYSICAL EXAMINATION Vital signs reviewed. CONSTITUTIONAL: No apparent distress. HEENT: Head is normocephalic. Pupils are equal, round. Sclerae anicteric. Mucous membranes of the mouth are moist. No JVD. No carotid bruit. CHEST EXAMINATION: Lungs are clear to auscultation. No chest wall tenderness is noted on palpation or with deep breathing. HEART EXAMINATION: Regular rate and rhythm. S1, S2 heard. No murmurs, gallops or rub. ABDOMEN: Soft, nontender. Positive bowel sounds. EXTREMITIES: 2+ peripheral pulses, no lower extremity edema and no calf tenderness. NEUROLOGIC EXAMINATION: Patient is awake, alert and oriented x3. ASSESSMENT 1 paroxysmal atrial fibrillation currently sinus rhythm 2. Non-STEMI, likely exacerbated by A. fib however rule out underlying significant CAD 3. Hypertension 4. 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 Hematuria with kidney stone 6. History of breast cancer PLAN Remains in sinus rhythm. Continue Eliquis. OK for discharge home on current regimen however increase Lipitor to 40mg daily. Objective - Vital Signs Vital signs: Vital Signs Temp 98 F 04/14/22 19:51 Pulse 50 L 04/15/22 04:00 Resp 18 04/15/22 04:00 BP 126/65 04/15/22 04:00 Pulse Ox 98 04/15/22 04:00 FiO2 Intake & Output 04/14/22 04/15/22 04/15/22 18:59 06:59 18:59 Intake Total 1045 118 Balance 1045 118 Intake: IV 100 Intake, IV Titration 525 Amount Sodium Chloride 0.9% 1, 525 000 ml @ 75 mls/hr IV . [id number] [facility] Rx#:[id number] Oral 420 118 Other: # Voids 1 - Labs CBC & Chem 7: 04/13/22 04:19 04/13/22 04:19 Labs: Abnormal Lab Results - Last 24 Hours (Table) 04/14/22 04/15/22 Range/Units 20:02 05:56 POC Glucose (mg/dL) 156 H 126 H (70-110) mg/dL Microbiology - Last 24 Hours (Table) 04/13/22 04:09 Urine Culture - Final Urine,Voided
[2022-04-15] MEDS: atenoloL 50 MG TAB PO SCH (09:24)
[2022-04-15] MEDS: LETROZOLE 2.5 MG TAB PO SCH (09:41)
[2022-04-15] MEDS: CHLORTHALIDONE 25 MG TAB PO SCH (09:41)
[2022-04-15] MEDS: APIXABAN 5 MG TAB PO SCH (09:41)
[2022-04-15 11:35] LABS: Chol/HDL Ratio 2.72 Ratio; LDL Cholesterol,Calculated 49.4 mg/dL (0.0-131.0)
[2022-04-15 11:42] LABS: Glucose,Whole Blood 128 mg/dL (70-110)
[2022-04-15 12:05] VITALS: BP 153/79; PULSE 91; RESP 17; TEMP 97.9
[2022-04-15] MEDS: SODIUM CHLORIDE 0.9% 1,000 ML IV SCH (12:07)
--- NOTE | 2022-04-15 13:48 | P.PN ---
Progress Note - Text Progress Note Date: 04/15/22 The patient states she feels good today. She denies any flank pain, abdominal pain, nausea or vomiting. She states that able to urinate without difficulty. The patient states she may be discharged home today. She was instructed to follow-up in our office with Dr. Vera in 2 weeks. Impression and plan of care have been directed as dictated by the signing physician. Kacy Lilly nurse practitioner acting as scribe for signing physician. Kacy Lilly [facility] Palliative Care/Urology [place] [id number] Email: [email or web address] I have reviewed and examined the patient and concur with the above-mentioned documented. Rogerio Vera M.D.
[2022-04-15] MEDS ORDERED: carvediloL 6.25 MG TAB PO SCH (17:30)
[2022-04-15] MEDS ORDERED: ATORVASTATIN 80 MG TAB PO SCH (21:00)
[2022-04-15] MEDS ORDERED: ATORVASTATIN 40 MG TAB PO SCH ×2 (21:00)
--- NOTE | 2022-04-15 21:15 | DS ---
DISCHARGE SUMMARY CHIEF COMPLAINT: Weakness and rapid heart beating. HISTORY OF PRESENT ILLNESS AND PHYSICAL EXAMINATION: Details of this lady's history and physical can be found in the initial workup. LABORATORY STUDIES: While she is in the hospital, she had laboratory studies, details of which can be found in the laboratory section of her chart. COURSE IN THE HOSPITAL: After admission, she was placed on bedrest, started on intravenous fluids and was found to have elevated troponin. She was in new onset atrial fibrillation with a regular ventricular response rate of 130. She also had a urinary tract infection. She was seen by Cardiology and subsequently taken to the research laboratory technician. She had a 30% narrowing in the LAD and a complete occlusion of the right coronary. No intervention was possible for her. Postoperatively, she did well. She did have some bradycardia, but her beta collette management will be decreased. She is doing well. It was felt she could go home on light activity about the house and was encouraged to become more active and lose weight. We will follow her up in several days. FINAL DIAGNOSES: 1. New onset atrial fibrillation with rapid ventricular response. 2. Non ST elevation myocardial infarction. 3. Urinary tract infection. 4. Type 2 [id number] diabetes mellitus. OPERATIONS: Cardiac cath. CONSULTATION: Cardiology. She is improved. MMODL / IJN: [id number] /
--- NOTE | 2022-04-16 01:36 | HP ---
HISTORY AND PHYSICAL CHIEF COMPLAINT: Weakness and hematuria. HISTORY OF PRESENT ILLNESS: This is another admission for this 76-year-old white female who has had a history of pulmonary embolism. She also has type 2 diabetes, which is under good control. She has had history of urinary tract infections in the past and hypertension. In the emergency room, she was found to have new onset atrial fibrillation with a rate of around 130 and a urinary tract infection. She had been experiencing some back pain and it was thought that this might be from her urinary tract infection. REVIEW OF SYSTEMS: She denies any neurologic problems, fever and chills, cough, hemoptysis, melena, hematochezia, incontinence, dysuria, etc. Past medical history, family history, personal and social histories are otherwise unremarkable and noncontributory. PHYSICAL EXAMINATION: VITAL SIGNS: Blood pressure is 126/80 with a pulse of 78, respirations 24, and she is afebrile. GENERAL: She appeared to be overweight and in no acute distress. SKIN: Color is normal. Skin is warm, dry. LYMPH NODES: Not enlarged. HEAD, EARS, EYES, NOSE, MOUTH AND THROAT: Normal. NECK: Neck veins are not distended. Thyroid is not enlarged. CHEST: Clear. CARDIAC: Demonstrates tachycardia. ABDOMEN: Soft and nontender without any masses or visceromegaly. EXTREMITIES: Normal. NEUROLOGICAL: She is intact. IMPRESSION: She is admitted to the hospital with diagnoses of: 1. New onset atrial fibrillation with rapid ventricular response. 2. History of hypertension. 3. History of pulmonary emboli. 4. History of type 2 diabetes mellitus. 5. Hematuria. PLAN: 1. Bedrest. 2. IV fluids. 3. Workup of hematuria. 4. Cardiology consult. MMODL / IJN: [id number] /
== END 2022-04-15 15:40 | disposition home or self-care (01) | DRG 281 ==
LOC: EC 03:44 → 3SCARD 05:40
PROVIDERS: ADMIT Family Medicine; ATTEND Family Medicine
PROC: B2111ZZ Fluoroscopy of Multiple Coronary Arteries using Low Osmolar Contrast (ICD-10-PCS; 2022-04-14)
PROC: 4A023N7 Measurement of Cardiac Sampling and Pressure, Left Heart, Percutaneous Approach (ICD-10-PCS; principal; 2022-04-14 08:30)
DX: I48.0 Paroxysmal atrial fibrillation (principal); I21.4 Non-ST elevation (NSTEMI) myocardial infarction; N13.6 Pyonephrosis; Z68.43 Body mass index [BMI] 50.0-59.9, adult; N20.2 Calculus of kidney with calculus of ureter; E66.9 Obesity, unspecified; I10 Essential (primary) hypertension; E11.9 Type 2 diabetes mellitus without complications; E78.5 Hyperlipidemia, unspecified; R00.1 Bradycardia, unspecified; I34.0 Nonrheumatic mitral (valve) insufficiency; I25.10 Atherosclerotic heart disease of native coronary artery without angina pectoris; Z79.84 Long term (current) use of oral hypoglycemic drugs; Z79.82 Long term (current) use of aspirin; Z79.811 Long term (current) use of aromatase inhibitors; Z79.01 Long term (current) use of anticoagulants; Z87.440 Personal history of urinary (tract) infections; Z86.711 Personal history of pulmonary embolism; Z85.3 Personal history of malignant neoplasm of breast; Z79.899 Other long term (current) drug therapy
CPT/HCPCS: 36415; 74176; 80053; 80061; 81001; 83036; 83735; 83880; 84100; 84484; 85025; 85610; 85730; 87086; 93005; 93306; 93458; 96361; 96365; 96374; 96375; 99285; 99291

== ENCOUNTER → 2022-05-03 | Outpatient (CLI) | payer MEDICARE ==
--- NOTE | 2022-05-03 11:34 | XR ---
EXAMINATION TYPE: XR KUB DATE OF EXAM: 05/03/2022 11:27 AM CLINICAL HISTORY: Calculus of ureter. TECHNIQUE: Two supine KUB images of the abdomen are obtained. COMPARISON: CT abdomen and pelvis April 13, 2022. FINDINGS: Redemonstration of 2 adjacent calculi lower pole left kidney measuring up to 6 mm in size. The smaller distal left ureter calculi on the recent CT are less well seen on plain film in the left pelvis. There are rounded densities consistent with scattered tiny phleboliths in the right pelvis ar e redemonstrated. No right-sided calculi. Overall nonobstructive bowel gas pattern. Lung bases are clear. Multilevel spurring the spine. Calcif ied fibroid projects over the pelvis. Moderate axial joint space loss with mild to moderate acetabula r spurring is redemonstrated. Surgical suture projects over the left lower quadrant. IMPRESSION: As above.
== END | disposition home or self-care (01) ==
LOC: RADXRMAIN 10:52
PROVIDERS: ATTEND Urology
DX: N20.1 Calculus of ureter (principal)
CPT/HCPCS: 74018

== ENCOUNTER → 2022-05-07 | Outpatient (CLI) | payer MEDICARE ==
[2022-05-07 10:57] VITALS: BP 144/77; PULSE 55; RESP 18; TEMP 97.9
--- NOTE | 2022-05-07 11:58 | P.PN ---
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 The right breast revealed a 1.2 cm invasive ductal carcinoma grade 2 ER/NJ positive HER-2/rohan negative G2. The margins were negative. The lymph nodes were all negative for cancer. Postprocedure she developed an open wound and has had this area packed until it healed. She has followed with medical oncology and is presently on Femara. She had a bilateral mammogram in . This was benign BIRADS 2. She did not have radiation therapy. She continues on femara. She is not concerned about any new lumps masses or nodules in either breast. She was diagnosed with bilateral pulmonary emboli in April 2021. It was necessary that she receive IV heparin for this. She is in the hospital for 5 days. She did receive the Maderna booster about one month prior to the PE. Since her last visit she's been diagnosed with diabetes and has had a myocardial infarction and atrial fibrillation. Note 01-19-22 medical oncology reviewed Family history: Mother: Breast cancer at 68 Father: Colon cancer Hormonal history: Menarche: 12 , breast fed;no, age at first : 22 menopause: 50 Surgical history: Right breast lumpectomy/sentinel node biopsy Cholecystectomy Appendectomy right knee replacement Hernia repair Medical history: High cholesterol Hypertension history of Pulmonary embolism atrial fib [place] diabetic Social history: Smoke: Negative Alcohol: Negative Drugs: Negative Systems: HEENT: cataract Heart: none lungs: none GI: none : none Musculoskeletal: Arthritis Psychiatric: Negative ALLERGIES: Negative Hematologic: baby aspirin daily Objective - Vital Signs Vital signs: Vital Signs Temp 97.9 F 05/07/22 10:49 Pulse 55 L 05/07/22 10:49 Resp 18 05/07/22 10:49 BP 144/77 05/07/22 10:49 Pulse Ox 96 05/07/22 10:49 FiO2 Intake & Output 05/06/22 05/07/22 05/07/22 18:59 06:59 18:59 Weight 90.718 kg - Constitutional General appearance: Present: cooperative - EENT Eyes: Present: EOMI ENT: Present: hearing grossly normal - Neck Neck: Present: normal ROM - Respiratory Respiratory: bilateral: CTA - Cardiovascular Rhythm: regular Heart sounds: normal: S1, S2 - Integumentary Integumentary: Present: normal turgor - Musculoskeletal Musculoskeletal: Present: gait normal - Psychiatric Psychiatric: Present: A&O x's 3, appropriate affect, intact judgment & insight - Additional findings Additional findings: Breast Exam: BRA: 44DD inspection: post op changes right breast; bilateral grade 3 ptosis; palpation: right breast: fibrocystic changes, postop changes, no evidence of recurrent cancer Right axilla: No adenopathy of concern Left breast: Positional exam fibrocystic changes no dominant masses or nodules of concern Left axilla: No adenopathy of concern fungal infection under right breast Assessment and Plan Assessment: Assessment and Plan Assessment: Impression: High cholesterol Hypertension history of Pulmonary embolism right breast stage IA no evidence of recurrence recent LA bilateral mammogram on 10-15-21 BIRADS 2 Plan: 1. bilateral mammogram in September 2022 with appointment at that time 2. continue with medical oncology 3. follow up here in 6 months 4. nystatin to area of fungal infection 5. discuss if patient should be taking antihormone therapy letrazole with the history of pulmonary embloi with medical oncology/ patient has appointment (I discussed this with pharmacy the note that this could cause thromboembolic events in 1.1% of patients and pulmonary emboli in 2% of patient's. CC: Dr. Vail
== END ==
LOC: WWCWWP 10:37
PROVIDERS: ATTEND Surgery
DX: D05.11 Intraductal carcinoma in situ of right breast (principal); I10 Essential (primary) hypertension; E78.5 Hyperlipidemia, unspecified; Z86.711 Personal history of pulmonary embolism; Z79.899 Other long term (current) drug therapy

== ENCOUNTER → 2022-10-18 | Outpatient (CLI) | payer MEDICARE ==
--- NOTE | 2022-10-18 11:28 | MM ---
Reason for Exam: Hx of breast cancer, conservation therapy. Last screening mammogram was performed 12 month(s) ago. Patient History: Menarche at age 12. First Full-Term at age 22. Postmenopausal. Breast cancer, age 74. 12/25/2019, Lumpectomy on the Right side. 12/25/2019, Malignant Core Biopsy on the right side. 10/18/2019, Malignant Core Biopsy on the right side. Mother had breast cancer, age 68. Prior Study Comparison: 03/19/2013 Bilateral Screening Mammogram, [facility]. 03/25/2014 Bilateral Screening Mammogram, [facility]. 04/14/2016 Bilateral Screening Mammogram, [facility]. 05/10/2017 Bilateral Screening Mammogram, [facility]. 05/13/2017 Right Diagnostic Mammogram, [facility]. 06/08/2018 Bilateral Screening Mammogram, [facility]. 06/11/2019 Bilateral Screening Mammogram, [facility]. 06/20/2019 Right Diagnostic Ultrasound, [facility]. 10/18/2019 Right Diagnostic Mammogram, [facility]. 10/13/2020 Left Diagnostic Mammogram, [facility]. 11/12/2020 Right Diagnostic Mammogram, [facility]. 10/15/2021 Bilateral MG 3D diag mammo w/cad MIC, [facility]. Tissue Density: There are scattered fibroglandular densities. Findings: Analyzed By CAD. Stable chronic nodularity in the right breast. No new suspicious masses within either breast. Postsurgical changes of the right breast. No suspicious group of calcifications within either breast. Overall Assessment: Benign, BI-RAD 2 Management: Diagnostic Mammogram of both breasts in 1 year. A clinical breast exam by your physician is recommended on an annual basis and results should be correlated with mammographic findings. This exam should not preclude additional follow-up of suspicious palpable abnormalities. Results were given to the patient verbally at the time of exam. Electronically signed and approved by: Glenn Larry D.O.
== END | disposition home or self-care (01) ==
LOC: RADMAMWWP 10:49
PROVIDERS: ATTEND Surgery
DX: Z85.3 Personal history of malignant neoplasm of breast (principal); Z78.0 Asymptomatic menopausal state; Z80.3 Family history of malignant neoplasm of breast
CPT/HCPCS: 77066; G0279; 77062

== ENCOUNTER → 2022-10-22 | Outpatient (CLI) | payer MEDICARE ==
[2022-10-22 12:35] VITALS: BP 125/78; PULSE 55; RESP 17; TEMP 97.7
--- NOTE | 2022-10-22 12:42 | P.PN ---
Subjective Progress Note Date: 10/22/22 Principal diagnosis: stage I right breast invasive ductal cancer 2019 stage IA right breast invasive ductal cancer 2019 Ana is a 76-year-old white female who is status post right breast lumpectomy and sentinel node biopsy on 12/25/2019. The right breast revealed a 1.2 cm invasive ductal carcinoma grade 2 ER/MI positive HER-2/rohan negative G2. The margins were negative. The lymph nodes were all negative for cancer. Postprocedure she developed an open wound and has had this area packed until it healed. She has followed with medical oncology and is presently on Femara. She had a bilateral mammogram in . This was benign BIRADS 2. She did not have radiation therapy. She continues on femara. Oncotype 5 She is not concerned about any new lumps masses or nodules in either breast. She was diagnosed with bilateral pulmonary emboli in April 2021. It was necessary that she receive IV heparin for this. She is in the hospital for 5 days. She did receive the Maderna booster about one month prior to the PE. she's been diagnosed with diabetes and has had a myocardial infarction and atrial fibrillation. She had a bilateral mammogram on , this was personally reviewed. This was BIRADS 2. Is not complaining of any new lumps masses or nodules in either breast. Note 01-19-22 medical oncology reviewed Family history: Mother: Breast cancer at 68 Father: Colon cancer Hormonal history: Menarche: 12 , breast fed;no, age at first : 22 menopause: 50 Surgical history: Right breast lumpectomy/sentinel node biopsy Cholecystectomy Appendectomy right knee replacement Hernia repair Medical history: High cholesterol Hypertension history of Pulmonary embolism atrial fib on eliquis [place] diabetic Social history: Smoke: Negative Alcohol: Negative Drugs: Negative Systems: HEENT: cataract Heart: none lungs: none GI: none : none Musculoskeletal: Arthritis Psychiatric: Negative ALLERGIES: Negative Hematologic: baby aspirin daily Objective - Constitutional General appearance: Present: cooperative - EENT Eyes: Present: EOMI ENT: Present: hearing grossly normal - Neck Neck: Present: normal ROM - Respiratory Respiratory: bilateral: CTA - Cardiovascular Rhythm: regular Heart sounds: normal: S1, S2 - Integumentary Integumentary: Present: normal turgor - Musculoskeletal Musculoskeletal: Present: gait normal - Psychiatric Psychiatric: Present: A&O x's 3, appropriate affect, intact judgment & insight - Additional findings Additional findings: Breast Exam: BRA: 44DD inspection: post op changes right breast; bilateral grade 3 ptosis; palpation: right breast: fibrocystic changes, postop changes, no evidence of recurrent cancer Right axilla: No adenopathy of concern Left breast: Positional exam fibrocystic changes no dominant masses or nodules of concern Left axilla: No adenopathy of concern fungal infection under right breast improved Assessment and Plan Assessment: Impression: High cholesterol Hypertension history of Pulmonary embolism atrial fib on eliquis [place] diabetic right breast stage I invasive ductal cancer 2019 no evidence of recurrence bilateral mammogram 10-18-22 BIRAD 2 Plan: 1. bilateral mammogram in September 2023 with appointment at that time 2. continue with medical oncology 3. follow up here in 6 months 4. patient discussed with medical oncolgoy should be taking antihormone therapy letrazole with the history of pulmonary emboli with medical oncology/ patient has appointment (I discussed this with pharmacy the note that this could cause thromboembolic events in 1.1% of patients and pulmonary emboli in 2% of patient's. CC: Dr. Vail
== END ==
LOC: WWCWWP 11:25
PROVIDERS: ATTEND Surgery
DX: Z85.3 Personal history of malignant neoplasm of breast (principal); C50.911 Malignant neoplasm of unspecified site of right female breast; E11.36 Type 2 diabetes mellitus with diabetic cataract; E78.00 Pure hypercholesterolemia, unspecified; I10 Essential (primary) hypertension; I21.9 Acute myocardial infarction, unspecified; I25.2 Old myocardial infarction; I48.91 Unspecified atrial fibrillation; Z17.0 Estrogen receptor positive status [ER+]; Z79.01 Long term (current) use of anticoagulants; Z80.3 Family history of malignant neoplasm of breast; Z86.711 Personal history of pulmonary embolism; Z90.49 Acquired absence of other specified parts of digestive tract; Z79.84 Long term (current) use of oral hypoglycemic drugs

== ENCOUNTER → 2023-02-04 | Outpatient (CLI) | payer MEDICARE ==
--- NOTE | 2023-02-04 13:05 | BD ---
EXAMINATION TYPE: Axial Bone Density DATE OF EXAM: 02/04/2023 CLINICAL HISTORY: 77 years old Female. ICD-10 CODE: M89.9 DISORDER OF BONE, UNSPECIFIED Height: 58in Weight: 203lb FRAX RISK QUESTIONS: Secondary Osteoporosis: RISK FACTORS HISTORY OF: Family History of Osteoporosis: yes Active: limited Diet low in dairy products/other sources of calcium: yes Postmenopausal woman: yes Lost more than 2 inches in height since high school: yes Poor Health: fair MEDICATIONS: Additional Medications: femara, bp meds, cholesterol med, vitamin d, diabetic med Additional History: Br cancer 2019 EXAM MEASUREMENTS: Bone mineral densitometry was performed using the Slingbox System. Bone mineral density as measured about the Lumbar spine is: ----- L1-L4(G/cm2): 1.291 T Score Values are as follows: ----- L1: 0.6 ----- L2: 0.6 ----- L3: 0.7 ----- L4: 1.5 ----- L1-L4: 0.9 Z Score Values are as follows: ----- L1: 1.5 ----- L2: 1.5 ----- L3: 1.6 ----- L4: 2.4 ----- L1-L4: 1.8 Bone mineral density has: Decreased -3.4% since study of: 01-15-21 Bone mineral density about the R hip (g/cm2): 1.047 Bone mineral density about the L hip (g/cm2): 0.884 T Score values are as follows: -----R Neck: -1.4 -----L Neck: -1.3 -----R Total: 0.3 -----L Total: -1.0 Z Score values are as follows: -----R Neck: 0.1 -----L Neck: 0.2 -----R Total: 1.5 -----L Total: 0.2 Bone mineral density has: Decreased -10.1% since study of: 01-15-2021 FRAX%s: The graph provided illustrates a 17.3% chance for a major osteoporotic fx and a 8.5% chance f or the hips probability for fx in 10 years time. IMPRESSION: Osteopenia (T Score between -2.5 and -1). There is slightly increased risk of fracture and the patient may be considered for treatment. Re-Screen 2-5 years. NOTE: T-SCORE=SD OF THE YOUNG ADULT MEAN.
== END | disposition home or self-care (01) ==
LOC: RADBDWWP 09:43
PROVIDERS: ATTEND Internal Medicine Hematology & Oncology
DX: M85.89 Other specified disorders of bone density and structure, multiple sites (principal); C50.111 Malignant neoplasm of central portion of right female breast; I10 Essential (primary) hypertension; E78.5 Hyperlipidemia, unspecified; Z71.3 Dietary counseling and surveillance; Z78.0 Asymptomatic menopausal state
CPT/HCPCS: 77080

== ENCOUNTER → 2023-04-06 | Outpatient (CLI) | payer MEDICARE ==
--- NOTE | 2023-04-06 10:22 | P.PN ---
Subjective Progress Note Date: 04/06/23 stage IA right breast invasive ductal cancer 2019 Ana is a 77-year-old white female who is status post right breast lumpectomy and sentinel node biopsy on 12/25/2019. The right breast revealed a 1.2 cm invasive ductal carcinoma grade 2 ER/NJ positive HER-2/rohan negative G2. The margins were negative. The lymph nodes were all negative for cancer. Postprocedure she developed an open wound and has had this area packed until it healed. She has followed with medical oncology and is presently on Femara. She had a bilateral mammogram in . This was benign BIRADS 2. She did not have radiation therapy. She continues on femara. Oncotype 5 She is not concerned about any new lumps masses or nodules in either breast. She was diagnosed with bilateral pulmonary emboli in April 2021. It was necessary that she receive IV heparin for this. She was in the hospital for 5 days. She did receive the Maderna booster about one month prior to the PE. she's been diagnosed with diabetes and has had a myocardial infarction and atrial fibrillation. 04-06-23 She is doing well at this time. Complaining of any new lumps masses or nodules of concern in either breast. She will be due for bilateral mammogram and September 2023. He is continuing on the aromatase inhibitor and tolerating it without difficulty. Family history: Mother: Breast cancer at 68 Father: Colon cancer Hormonal history: Menarche: 12 , breast fed;no, age at first : 22 menopause: 50 Surgical history: Right breast lumpectomy/sentinel node biopsy Cholecystectomy Appendectomy right knee replacement Hernia repair Medical history: High cholesterol Hypertension history of Pulmonary embolism atrial fib on eliquis [place] diabetic Social history: Smoke: Negative Alcohol: Negative Drugs: Negative Systems: HEENT: cataract Heart: none lungs: none GI: none : none Musculoskeletal: Arthritis Psychiatric: Negative ALLERGIES: Negative Hematologic: baby aspirin daily Objective - Constitutional General appearance: Present: cooperative - EENT Eyes: Present: EOMI ENT: Present: hearing grossly normal - Neck Neck: Present: normal ROM - Respiratory Respiratory: bilateral: CTA - Cardiovascular Rhythm: regular Heart sounds: normal: S1, S2 - Integumentary Integumentary: Present: normal turgor - Musculoskeletal Musculoskeletal: Present: gait normal - Psychiatric Psychiatric: Present: A&O x's 3, appropriate affect, intact judgment & insight - Additional findings Additional findings: Breast Exam: BRA: 44DD inspection: post op changes right breast; bilateral grade 3 ptosis; palpation: right breast: fibrocystic changes, postop changes, no evidence of recurrent cancer Right axilla: No adenopathy of concern Left breast: multi-positional exam fibrocystic changes no dominant masses or nodules of concern Left axilla: No adenopathy of concern fungal infection under right breast , and at lumpectomy site Assessment and Plan Assessment: Impression: High cholesterol Hypertension history of Pulmonary embolism atrial fib on eliquis [place] diabetic right breast stage I invasive ductal cancer 2019 no evidence of recurrence bilateral mammogram 10-18-22 BIRAD 2 Plan: 1. bilateral mammogram in September 2023 with appointment at that time 2. continue with medical oncology 3. patient discussed with medical oncolgoy should be taking antihormone therapy letrazole with the history of pulmonary emboli with medical oncology/ patient has appointment (I discussed this with pharmacy the note that this could cause thromboembolic events in 1.1% of patients and pulmonary emboli in 2% of patient's; she will continue on Femora 4. nystatin cream to affected area as needed CC: Dr. Vail
[2023-04-06 10:39] VITALS: BP 151/84; PULSE 67; RESP 17; TEMP 97.8
== END ==
LOC: WWCWWP 09:39
PROVIDERS: ATTEND Surgery
DX: Z12.31 Encounter for screening mammogram for malignant neoplasm of breast (principal); Z85.3 Personal history of malignant neoplasm of breast; C50.911 Malignant neoplasm of unspecified site of right female breast; E11.36 Type 2 diabetes mellitus with diabetic cataract; E78.00 Pure hypercholesterolemia, unspecified; I10 Essential (primary) hypertension; I21.9 Acute myocardial infarction, unspecified; I25.2 Old myocardial infarction; I48.91 Unspecified atrial fibrillation; Z17.0 Estrogen receptor positive status [ER+]; Z80.3 Family history of malignant neoplasm of breast; Z86.711 Personal history of pulmonary embolism; Z90.49 Acquired absence of other specified parts of digestive tract; Z79.84 Long term (current) use of oral hypoglycemic drugs; Z79.890 Hormone replacement therapy

== ENCOUNTER → 2023-10-20 | Outpatient (CLI) | payer MEDICARE ==
--- NOTE | 2023-10-20 10:05 | MM ---
Reason for Exam: Follow-up at short interval from prior study. Last screening mammogram was performed 12 month(s) ago. Patient History: Menarche at age 12. First Full-Term at age 22. Postmenopausal. Breast cancer, age 74. 12/25/2019, Lumpectomy on the Right side. 12/25/2019, Malignant Core Biopsy on the right side. 10/18/2019, Malignant Core Biopsy on the right side. Mother had breast cancer, age 68. Prior Study Comparison: 06/20/2019 Right Diagnostic Ultrasound, [facility]. 10/18/2019 Right Diagnostic Mammogram, [facility]. 10/13/2020 Left Diagnostic Mammogram, [facility]. 11/12/2020 Right Diagnostic Mammogram, [facility]. 10/15/2021 Bilateral MG 3D diag mammo w/cad MIC, [facility]. 10/18/2022 Bilateral MG 3D diag mammo w/cad MIC, [facility]. Tissue Density: There are scattered areas of fibroglandular density. Findings: Analyzed By CAD. Distortion right breast from prior lumpectomy. No evidence for mass or suspicious cluster of microcalcifications within either breast. Overall Assessment: Benign, BI-RAD 2 Management: Diagnostic Mammogram of both breasts in 1 year. . Results were given to the patient verbally at the time of exam. Patient should continue monthly self-breast exams. A clinical breast exam by your physician is recommended on an annual basis. This exam should not preclude additional follow-up of suspicious palpable abnormalities. Note on Bita scores and lifetime risk: 1. A Bita score greater than 3% is considered moderate risk. If this is the case, consider specialist referral to assess eligibility for a risk reducing agent. 2. If overall lifetime risk for the development of breast cancer is 20% or higher, the patient may qualify for future screening with alternating mammogram and breast MRI. Electronically signed and approved by: David Bell M.D. Radiologis
== END | disposition home or self-care (01) ==
LOC: RADMAMWWP 09:40
PROVIDERS: ATTEND Surgery
DX: R92.323 Mammographic fibroglandular density, bilateral breasts (principal); Z85.3 Personal history of malignant neoplasm of breast; Z78.0 Asymptomatic menopausal state; Z80.3 Family history of malignant neoplasm of breast
CPT/HCPCS: 77066; G0279; 77062

== ENCOUNTER → 2023-11-03 | Outpatient (CLI) | payer MEDICARE ==
[2023-11-03 14:14] VITALS: BP 124/74; PULSE 63; RESP 18; TEMP 97.9
--- NOTE | 2023-11-03 14:17 | P.PN ---
Subjective Progress Note Date: 11/03/23 stage IA right breast invasive ductal cancer 2019 Ana is a 78-year-old white female who is status post right breast lumpectomy and sentinel node biopsy on 12/25/2019. The right breast revealed a 1.2 cm invasive ductal carcinoma grade 2 ER/VA positive HER-2/rohan negative G2. The margins were negative. The lymph nodes were all negative for cancer. Postprocedure she developed an open wound and has had this area packed until it healed. She has followed with medical oncology and is presently on Femara. She had a bilateral mammogram in This was benign BIRADS 2. She did not have radiation therapy. She continues on femara. Oncotype 5 She is not concerned about any new lumps masses or nodules in either breast. She was diagnosed with bilateral pulmonary emboli in April 2021. It was necessary that she receive IV heparin for this. She was in the hospital for 5 days. She did receive the Maderna booster about one month prior to the PE. she's been diagnosed with diabetes and has had a myocardial infarction and atrial fibrillation. Family history: Mother: Breast cancer at 68 Father: Colon cancer Hormonal history: Menarche: 12 , breast fed;no, age at first : 22 menopause: 50 Surgical history: Right breast lumpectomy/sentinel node biopsy Cholecystectomy Appendectomy right knee replacement Hernia repair Medical history: High cholesterol Hypertension history of Pulmonary embolism atrial fib on eliquis [place] diabetic Social history: Smoke: Negative Alcohol: Negative Drugs: Negative Systems: HEENT: cataract Heart: none lungs: none GI: none : none Musculoskeletal: Arthritis Psychiatric: Negative ALLERGIES: Negative Hematologic: baby aspirin daily Objective - Vital Signs Vital signs: Intake & Output 11/02/23 11/03/23 11/03/23 18:59 06:59 18:59 Weight 89.358 kg - Constitutional General appearance: Present: cooperative - EENT Eyes: Present: EOMI ENT: Present: hearing grossly normal - Neck Neck: Present: normal ROM - Respiratory Respiratory: bilateral: CTA - Cardiovascular Rhythm: regular Heart sounds: normal: S1, S2 - Integumentary Integumentary: Present: normal turgor - Musculoskeletal Musculoskeletal: Present: gait normal - Psychiatric Psychiatric: Present: A&O x's 3, appropriate affect, intact judgment & insight - Additional findings Additional findings: Breast Exam: BRA: 44DD inspection: post op changes right breast; bilateral grade 3 ptosis; palpation: right breast: fibrocystic changes, postop changes, no evidence of recurrent cancer Right axilla: No adenopathy of concern Left breast: multi-positional exam fibrocystic changes no dominant masses or nodules of concern Left axilla: No adenopathy of concern fungal infection under both breast, with some excoriation on the left side Assessment and Plan Assessment: Impression: High cholesterol Hypertension history of Pulmonary embolism atrial fib on eliquis [place] diabetic right breast stage I invasive ductal cancer 2019 no evidence of recurrence bilateral mammogram 10-20-23 BIRAD 2 Plan: 1. bilateral mammogram in September 2024 with appointment at that time 2. continue with medical oncology 3. patient discussed with medical oncolgoy should be taking antihormone therapy letrazole with the history of pulmonary emboli with medical oncology/ patient has appointment (I discussed this with pharmacy the note that this could cause thromboembolic events in 1.1% of patients and pulmonary emboli in 2% of patient's; she will continue on Femora, as per medical onoclogy 4. nystatin cream to affected area as needed CC: Dr. Vail
== END ==
LOC: WWCWWP 13:37
PROVIDERS: ATTEND Surgery
DX: R92.8 Other abnormal and inconclusive findings on diagnostic imaging of breast (principal); C50.911 Malignant neoplasm of unspecified site of right female breast; E78.00 Pure hypercholesterolemia, unspecified; I10 Essential (primary) hypertension; I25.2 Old myocardial infarction; I48.91 Unspecified atrial fibrillation; E11.36 Type 2 diabetes mellitus with diabetic cataract; Z17.0 Estrogen receptor positive status [ER+]; Z79.01 Long term (current) use of anticoagulants; Z80.3 Family history of malignant neoplasm of breast; Z86.711 Personal history of pulmonary embolism; Z79.84 Long term (current) use of oral hypoglycemic drugs; Z79.899 Other long term (current) drug therapy

== ENCOUNTER 2024-01-12 03:19 | Observation (INO) | payer MEDICARE ==
--- NOTE | 2024-01-12 04:32 | ED ---
Arrhythmia/Palpitations HPI - General Chief Complaint: Arrhythmia/Palpitations Stated Complaint: AFIB Time Seen by Provider: 01/12/24 04:12 Source: patient, EMS Mode of arrival: EMS Limitations: no limitations - History of Present Illness Initial Comments: Patient is a pleasant 78-year-old female with history of atrial fibrillation for which she takes carvedilol Eliquis. Patient states that she woke up tonight to use the restroom when she stood up she felt quite lightheaded. She tried sitting down relaxing but the lightheadedness persisted at which time she asked her to call the ambulance. Ambulance arrived and found the patient with a heart rate in the 140s EKG was concerning for a flutter with RVR. En route to the hospital without any treatment patient converted to a sinus bradycardia and reported that she was feeling much better no longer lightheaded no longer short of breath. At the time of arrival patient has no complaints. She does note that she had an episode similar to this about 2 months ago but it lasted only a brief period of time resolved and so she went back to bed without coming to the hospital for evaluation.3 She has been absolutely compliant with all of her medications not missed a single dose. No recent illness no nausea or vomiting no concern for dehydration. - Related Data Home Medications Medication Instructions Recorded Confirmed Letrozole [Femara] 2.5 mg PO DAILY 07/24/20 01/12/24 Apixaban [Eliquis] 5 mg PO BID-W/MEALS 04/13/22 01/12/24 metFORMIN HCL [Glucophage] 500 mg PO DAILY 04/13/22 01/12/24 Cholecalciferol (Vitamin D3) 125 mcg PO DAILY 05/07/22 01/12/24 [Vitamin D3 (125 MCG = 5,000 IU)] Naproxen Sodium [Aleve] 440 mg PO W/BRKFST 05/07/22 01/12/24 Aspirin EC [Ecotrin Low Dose] 81 mg PO DAILY 01/12/24 01/12/24 Atorvastatin [Lipitor] 80 mg PO W/SUPPER 01/12/24 01/12/24 Previous Rx's Medication Instructions Recorded Chlorthalidone [Hygroton] 25 mg PO DAILY #30 tab 04/15/22 carvediloL [Coreg] 6.25 mg PO BID-W/MEALS #60 tab 04/15/22 Allergies Allergy/AdvReac Type Severity Reaction Status Date / Time No Known Allergies Allergy Verified 01/12/24 07:35 Review of Systems ROS Statement: Those systems with pertinent positive or pertinent negative responses have been documented in the HPI. ROS Other: All systems not noted in ROS Statement are negative. Past Medical History Past Medical History: Hyperlipidemia, Hypertension Additional Past Medical History / Comment(s): rt breast cancer; She is status post right breast lumpectomy and axillary node sampling on 9119. The right breast revealed a 1.2 cm invasive ductal carcinoma grade 2 ER/DC positive HER- 2/rohan negative G2. The margins were negative. The lymph nodes were all negative for cancer. History of Any Multi-Drug Resistant Organisms: None Reported Past Surgical History: Appendectomy, Cholecystectomy, Hernia Repair, Orthopedic Surgery Additional Past Surgical History / Comment(s): right total knee 2011 Past Anesthesia/Blood Transfusion Reactions: No Reported Reaction Past Psychological History: No Psychological Hx Reported Smoking Status: Never smoker Past Alcohol Use History: None Reported Past Drug Use History: None Reported - Past Family History Mother Family Medical History: Cancer Additional Family Medical History / Comment(s): breast CA Father Family Medical History: Cancer Additional Family Medical History / Comment(s): scrotal CA General Exam - General Exam Comments Initial Comments: Physical Exam GENERAL: Patient is well-developed and well-nourished. Patient is nontoxic and well- hydrated and is in no distress. HENT: Normocephalic, Atraumatic. EYES: PERRL, EOMI PULMONARY: Unlabored respirations. No audible rales rhonchi or wheezing was noted. CARDIOVASCULAR: Bradycardic, Regular Murmur ABDOMEN: Soft and nontender with normal bowel sounds. SKIN: Skin is clear with no lesions or rashes and otherwise unremarkable. : Deferred NEUROLOGIC: Patient is alert and oriented x3. Moving all extremities spontaneously MUSCULOSKELETAL: Normal extremities with adequate strength and full range of motion. No lower extremity swelling or edema. No calf tenderness. PSYCHIATRIC: Normal psychiatric evaluation. Limitations: no limitations Course Vital Signs 01/12/24 01/12/24 01/12/24 03:20 04:31 05:00 Temperature 98.3 F Pulse Rate 60 53 L 51 L Respiratory 18 16 16 Rate Blood Pressure 106/56 91/59 101/53 O2 Sat by Pulse 98 98 97 Oximetry 01/12/24 06:08 Temperature Pulse Rate 55 L Respiratory 16 Rate Blood Pressure 115/71 O2 Sat by Pulse 97 Oximetry EKG Findings - EKG Comments: EKG Findings:: EKG interpreted by me EKG obtained due to arrhythmia EKG obtained at 3:33 AM rate is 51 rhythm is a sinus bradycardia with intraventricular conduction delay, DC 159 QRS prolonged at 113 QTc 376 there are no acute ST elevations or depressions no evidence of ischemia or infarction. Medical Decision Making - Medical Decision Making Was pt. sent in by a medical professional or institution (, [facility], [facility], urgent care, hospital, or snf...) When possible be specific @ -No Did you speak to anyone other than the patient for history (EMS, parent, family, police, friend...)? What history was obtained from this source @ -EMS Did you review nursing and triage notes (agree or disagree)? Why? @ -I reviewed and agree with nursing and triage notes Were old charts reviewed (outside hosp., previous admission, EMS record, old EKG, old radiological studies, urgent care reports/EKG's, snf records)? Report findings @ -No old charts were reviewed Differential Diagnosis (chest pain, altered mental status, abdominal pain women, abdominal pain men, vaginal bleeding, weakness, fever, dyspnea, syncope, headache, dizziness, GI bleed, back pain, seizure, CVA, palpatations, mental health)? @ -Differential Chest Pain: Stable Angina, Unstable Angina, STEMI, NSTEMI Aortic Dissection, Pneumothorax, Musculoskeletal, Esophageal Spasm GERD, Cholecystitis, Pancreatitis, Zoster, this is not meant to be an all-inclusive list. EKG interpreted by me (3pts min.). @ -As above X-rays interpreted by me (1pt min.). @ -Chest x-ray with no acute findings CT interpreted by me (1pt min.). @ -None done U/S interpreted by me (1pt. min.). @ -None done What testing was considered but not performed or refused? (CT, X-rays, U/S, labs)? Why? @ -None What meds were considered but not given or refused? Why? @ -None Did you discuss the management of the patient with other professionals (professionals i.e. , [facility], [facility], lab, RT, psych nurse, social sciences professor, latin teacher, teacher, activities officer, rehabilitation case coordinator)? Give summary @ -No Was smoking cessation discussed for >3mins.? @ -No Was critical care preformed (if so, how long)? @ -No Were there social determinants of health that impacted care today? How? (Homelessness, low income, unemployed, alcoholism, drug addiction, transp ortation, low edu. Level, literacy, decrease access to med. care, [place] [facility], rehab)? @ -No Was there de-escalation of care discussed even if they declined (Discuss DNR or withdrawal of care, Hospice)? DNR status @ -No What co-morbidities impacted this encounter? (DM, HTN, Smoking, COPD, CAD, Cancer, CVA, ARF, Chemo, Hep., AIDS, mental health diagnosis, sleep apnea, morbid obesity)? @ -None Was patient admitted / discharged? Hospital course, mention meds given and route, prescriptions, significant lab abnormalities, going to OR and other pertinent info. @ -Admit Patient was seen and evaluated history is obtained from patient and EMS. Patient was found to be in A-fib RVR upon transport but converted to sinus bradycardia. Patient had pressure and breath that resolved when the A-fib resolved. She is now resting comfortably. Patient's initial troponin was indeterminate and repeat was elevated. I suspect the patient is having a type II NSTEMI secondary to the tachycardia however we will plan to admit for serial troponins and evaluation by cardiology. Undiagnosed new problem with uncertain prognosis? @ -No Drug Therapy requiring intensive monitoring for toxicity (Heparin, Nitro, I nsulin, Cardizem)? @ -Yes Heparin Were any procedures done? @ -No Diagnosis/symptom? @ -NSTEMI Acute, or Chronic, or Acute on Chronic? @ -Acute Uncomplicated (without systemic symptoms) or Complicated (systemic symptoms)? @ -Default Side effects of treatment? @ -No Exacerbation, Progression, or Severe Exacerbation? @ -No Poses a threat to life or bodily function? How? (Chest pain, USA, GA, pneumonia, PE, COPD, DKA, ARF, appy, cholecystitis, CVA, Diverticulitis, Homicidal, Suicidal, threat to staff... and all critical care pts) @ -Yes - Lab Data Result diagrams: 01/12/24 03:30 01/12/24 03:30 Lab Results 01/12/24 01/12/24 01/12/24 Range/Units 03:30 03:30 03:30 WBC 7.9 (3.8-10.6) k/uL RBC 4.14 (3.80-5.40) m/uL Hgb 12.8 (11.4-16.0) gm/dL Hct 38.6 (34.0-46.0) % MCV 93.3 (80.0-100.0) fL MCH 31.0 (25.0-35.0) pg MCHC 33.2 (31.0-37.0) g/dL RDW 13.7 (11.5-15.5) % Plt Count 265 (150-450) k/uL MPV 7.9 Neutrophils % 67 % Lymphocytes % 21 % Monocytes % 8 % Eosinophils % 2 % Basophils % 0 % Neutrophils # 5.3 (1.3-7.7) k/uL Lymphocytes # 1.7 (1.0-4.8) k/uL Monocytes # 0.6 (0-1.0) k/uL Eosinophils # 0.2 (0-0.7) k/uL Basophils # 0.0 (0-0.2) k/uL PT 11.1 (10.0-12.5) sec INR 1.0 (<1.2) APTT 25.2 (22.0-30.0) sec Sodium 143 (137-145) mmol/L Potassium 4.1 (3.5-5.1) mmol/L Chloride 110 H (98-107) mmol/L Carbon Dioxide 24 (22-30) mmol/L Anion Gap 9 mmol/L BUN 25 H (7-17) mg/dL Creatinine 0.72 (0.52-1.04) mg/dL Est GFR (CKD-EPI)AfAm >90 (>60 ml/min/1.73 sqM) Est GFR (CKD-EPI)NonAf 81 (>60 ml/min/1.73 sqM) Glucose 129 H (74-99) mg/dL Calcium 9.7 (8.4-10.2) mg/dL Magnesium 1.8 (1.6-2.3) mg/dL Total Bilirubin 0.6 (0.2-1.3) mg/dL AST 32 (14-36) U/L ALT 28 (4-34) U/L Alkaline Phosphatase 89 (38-126) U/L Troponin I (0.000-0.034) ng/mL Total Protein 6.2 L (6.3-8.2) g/dL Albumin 3.7 (3.5-5.0) g/dL TSH 3.730 (0.465-4.680) mIU/L 01/12/24 01/12/24 Range/Units 03:30 05:50 WBC (3.8-10.6) k/uL RBC (3.80-5.40) m/uL Hgb (11.4-16.0) gm/dL Hct (34.0-46.0) % MCV (80.0-100.0) fL MCH (25.0-35.0) pg MCHC (31.0-37.0) g/dL RDW (11.5-15.5) % Plt Count (150-450) k/uL MPV Neutrophils % % Lymphocytes % % Monocytes % % Eosinophils % % Basophils % % Neutrophils # (1.3-7.7) k/uL Lymphocytes # (1.0-4.8) k/uL Monocytes # (0-1.0) k/uL Eosinophils # (0-0.7) k/uL Basophils # (0-0.2) k/uL PT (10.0-12.5) sec INR (<1.2) APTT (22.0-30.0) sec Sodium (137-145) mmol/L Potassium (3.5-5.1) mmol/L Chloride (98-107) mmol/L Carbon Dioxide (22-30) mmol/L Anion Gap mmol/L BUN (7-17) mg/dL Creatinine (0.52-1.04) mg/dL Est GFR (CKD-EPI)AfAm (>60 ml/min/1.73 sqM) Est GFR (CKD-EPI)NonAf (>60 ml/min/1.73 sqM) Glucose (74-99) mg/dL Calcium (8.4-10.2) mg/dL Magnesium (1.6-2.3) mg/dL Total Bilirubin (0.2-1.3) mg/dL AST (14-36) U/L ALT (4-34) U/L Alkaline Phosphatase (38-126) U/L Troponin I 0.032 0.206 H* (0.000-0.034) ng/mL Total Protein (6.3-8.2) g/dL Albumin (3.5-5.0) g/dL TSH (0.465-4.680) mIU/L Disposition Clinical Impression: Atrial fibrillation with RVR Disposition: ADMITTED IP TO THIS HOSP Condition: Stable Is patient prescribed a controlled substance at d/c from ED?: No
--- NOTE | 2024-01-12 04:38 | XR ---
EXAM: XR Chest, 2 Views CLINICAL HISTORY: ITS.REASON XR Reason: dysrhythmia TECHNIQUE: Frontal and lateral views of the chest. COMPARISON: No relevant prior studies available. FINDINGS: Lungs: No consolidation or mass. Pleural space: No effusion. Heart: cardiomegaly. Bones/joints: No acute findings. IMPRESSION: No acute cardiopulmonary process.
[2024-01-12 04:52] LABS: Partial Thromboplastin Time 25.2 sec (22.0-30.0); Prothrombin Time 11.1 sec (10.0-12.5)
[2024-01-12 05:10] LABS: Basophils % (A) 0 %; Eosinophils # (A) 0.2 k/uL (0-0.7); Eosinophils % (A) 2 %; HCT 38.6 % (34.0-46.0); HGB 12.8 gm/dL (11.4-16.0); Lymphocytes # (A) 1.7 k/uL (1.0-4.8); Lymphocytes % (A) 21 %; MCHC 33.2 g/dL (31.0-37.0); MCV 93.3 fL (80.0-100.0); Mean Platelet Volume 7.9; Monocytes # (A) 0.6 k/uL (0-1.0); Monocytes % (A) 8 %; Neutrophils # (A) 5.3 k/uL (1.3-7.7); Neutrophils % (A) 67 %; Platelet Count 265 k/uL (150-450); RBC 4.14 m/uL (3.80-5.40); RDW 13.7 % (11.5-15.5); WBC 7.9 k/uL (3.8-10.6)
[2024-01-12 05:12] LABS: ALT 28 U/L (4-34); AST 32 U/L (14-36); African American GFR (CKD) >90 (>60 ml/min/1.73 sqM); Albumin 3.7 g/dL (3.5-5.0); Alkaline Phosphatase 89 U/L (38-126); Anion Gap 9 mmol/L; Blood Urea Nitrogen 25 mg/dL (7-17); Calcium 9.7 mg/dL (8.4-10.2); Carbon Dioxide 24 mmol/L (22-30); Chloride 110 mmol/L (98-107); Glucose 129 mg/dL (74-99); Magnesium 1.8 mg/dL (1.6-2.3); Non-African American GFR(CKD) 81 (>60 ml/min/1.73 sqM); Potassium 4.1 mmol/L (3.5-5.1); Sodium 143 mmol/L (137-145); Total Bilirubin 0.6 mg/dL (0.2-1.3); Total Protein 6.2 g/dL (6.3-8.2)
[2024-01-12] MEDS ORDERED: NITROGLYCERIN SL TABS 0.4 MG TAB SUBLINGUAL PRN (06:30)
[2024-01-12] MEDS: HEPARIN SODIUM 1,000 UN/ML (10ML VL) IV ONE (07:11)
[2024-01-12] MEDS: HEPARIN SOD,PORK IN 0.45% NACL 25,000 UNIT in 0.45% NACL 1 250ML.BAG IV SCH (07:11)
[2024-01-12] MEDS: ASPIRIN 81 MG PO STA (07:12)
[2024-01-12] MEDS: carvediloL 6.25 MG TAB PO SCH (12:48)
--- NOTE | 2024-01-12 12:55 | P.CRDCN ---
History of Present Illness History of present illness: HISTORY OF PRESENT ILLNESS: This is a 78-year-old female with a past medical history significant for coronary artery disease with CONSTRUCTION MATERIALS TESTER of the RCA, pulmonary embolism, mild cardiomyopathy, hypertension, and paroxysmal atrial fibrillation. Patient follows in the office with Dr. Garcia. We have been asked to see the patient in consultation for elevated troponin. Patient examined at the bedside in the emergency room. Patient states last night she got up to use the bathroom and did not feel right. She reports feeling lightheaded. She denies having any palpitations. She called EMS. The patient's heart rate was apparently in the 140s and route to the hospital and was irregular. She converted to sinus mechanism and route to the hospital. The patient states that her symptoms all resolved by the time she got here. She denies having any chest pain or pressure. She denies having any shortness of breath. DIAGNOSTICS: - EKG reveals sinus mechanism with no signs of acute ischemia - Chest xray negative for acute process - Laboratory data: WBC 7.9. Hemoglobin 12.8. Platelet count 265. Sodium 143. Potassium 4.1. BUN 25. Creatinine 0.72. Magnesium 1.8. Troponin 0.032. 0.206. 0.454. - Current home cardiac medications include Eliquis 5 mg twice a day, Lipitor 80 mg at night, carvedilol 6.25 mg twice a day, aspirin 81 mg daily - Most recent echocardiogram obtained in March 2022 revealed ejection fraction 45 to 50%, mild MR - Cardiac catheterization history: March 2022 100% CONSTRUCTION MATERIALS TESTER RCA with [id number] collaterals and 30% mid LAD and 30% OM 2 stenosis REVIEW OF SYSTEMS: At the time of my exam: CONSTITUTIONAL: Denies fever or chills. HEENT: Denies blurred vision, vision changes, or eye pain. Denies hemoptysis CARDIOVASCULAR: Denies chest pain. Denies orthopnea. Denies PND. Denies palpitations RESPIRATORY: Denies shortness of breath. GASTROINTESTINAL: Denies abdominal pain. Denies nausea or vomiting. HEMATOLOGIC: Denies bleeding disorders. GENITOURINARY: Denies any blood in urine. SKIN: Denies pruitis. Denies rash. PHYSICAL EXAM: VITAL SIGNS: Reviewed. GENERAL: Well-developed in no acute distress. HEENT: Head is normocephalic. Pupils are equal, round. Sclerae anicteric. Mucous membranes of the mouth are moist. Neck supple. No JVD or thyromegaly LUNGS: Respirations even and unlabored. Lungs essentially clear to auscultation bilaterally. HEART: Regular rate and rhythm. S1 and S2 heard. ABDOMEN: Soft. Nondistended. Nontender. EXTREMITIES: Normal range of motion. No clubbing or cyanosis. Peripheral pulses intact. No lower extremity edema NEUROLOGIC: Awake and alert. Oriented x 3. ASSESSMENT: Lightheadedness Paroxysmal atrial fibrillation with RVR, currently maintaining sinus mechanism Elevated troponins, suspect type II FL secondary to oxygen supply/demand mismatch secondary to A-fib with RVR Coronary artery disease with CONSTRUCTION MAT[employer]S TESTER of RCA, per cardiac catheterization 2021 History of pulmonary embolism with EKOS Hypertension Hyperlipidemia PLAN: Resume aspirin and atorvastatin Continue current dose of carvedilol 6.25 mg twice a day Hold chlorthalidone Patient had an episode similar to this in 2021. Patient with A-fib RVR that resulted in uptrending troponins. She underwent cardiac catheterization at that time revealing CONSTRUCTION MAT[employer]S TESTER of the RCA. Case was discussed with Dr. Garcia who did not feel cardiac catheterization was necessary and recommended to continue with medical management unless the patient develops chest discomfort. Continue to hold Eliquis. Continue IV heparin in the event that patient develops chest discomfort and then cardiac catheterization would be recommended Obtain 2D echo to assess cardiac structure and function Further recommendations pending patient course Nurse practitioner note has been reviewed by physician. Signing provider agrees with the documented findings, assessment, and plan of care documented by MASTIC WORKER as a scribe. Past Medical History Past Medical History: Hyperlipidemia, Hypertension Additional Past Medical History / Comment(s): rt breast cancer; She is status post right breast lumpectomy and axillary node sampling on 9119. The right breast revealed a 1.2 cm invasive ductal carcinoma grade 2 ER/VA positive HER- 2/rohan negative G2. The margins were negative. The lymph nodes were all negative for cancer. History of Any Multi-Drug Resistant Organisms: None Reported Past Surgical History: Appendectomy, Cholecystectomy, Hernia Repair, Orthopedic Surgery Additional Past Surgical History / Comment(s): right total knee 2011 Past Anesthesia/Blood Transfusion Reactions: No Reported Reaction Past Psychological History: No Psychological Hx Reported Smoking Status: Never smoker Past Alcohol Use History: None Reported Past Drug Use History: None Reported - Past Family History Mother Family Medical History: Cancer Additional Family Medical History / Comment(s): breast CA Father Family Medical History: Cancer Additional Family Medical History / Comment(s): scrotal CA Medications and Allergies Home Medications Medication Instructions Recorded Confirmed Type Letrozole [Femara] 2.5 mg PO DAILY 07/24/20 01/12/24 History Apixaban [Eliquis] 5 mg PO BID-W/MEALS 04/13/22 01/12/24 History metFORMIN HCL [Glucophage] 500 mg PO DAILY 04/13/22 01/12/24 History Chlorthalidone [Hygroton] 25 mg PO DAILY #30 tab 04/15/22 01/12/24 Rx carvediloL [Coreg] 6.25 mg PO BID-W/MEALS #60 tab 04/15/22 01/12/24 Rx Cholecalciferol (Vitamin D3) 125 mcg PO DAILY 05/07/22 01/12/24 History [Vitamin D3 (125 MCG = 5,000 IU)] Naproxen Sodium [Aleve] 440 mg PO W/BRKFST 05/07/22 01/12/24 History Aspirin EC [Ecotrin Low Dose] 81 mg PO DAILY 01/12/24 01/12/24 History Atorvastatin [Lipitor] 80 mg PO W/SUPPER 01/12/24 01/12/24 History Allergies Allergy/AdvReac Type Severity Reaction Status Date / Time No Known Allergies Allergy Verified 01/12/24 07:35 Physical Exam Vitals: Vital Signs Temp Pulse Resp BP Pulse Ox 01/12/24 06:08 55 L 16 115/71 97 01/12/24 05:00 51 L 16 101/53 97 01/12/24 04:31 53 L 16 91/59 98 01/12/24 03:20 98.3 F 60 18 106/56 98 Intake and Output 01/11/24 01/12/24 01/12/24 22:59 06:59 14:59 Other: Weight 90.718 kg Results 01/12/24 03:30 01/12/24 03:30 Cardiac Enzymes 01/12/24 01/12/24 01/12/24 Range/Units 03:30 03:30 05:50 AST 32 (14-36) U/L Troponin I 0.032 0.206 H* (0.000-0.034) ng/mL Coagulation 01/12/24 Range/Units 03:30 PT 11.1 (10.0-12.5) sec APTT 25.2 (22.0-30.0) sec CBC 01/12/24 Range/Units 03:30 WBC 7.9 (3.8-10.6) k/uL RBC 4.14 (3.80-5.40) m/uL Hgb 12.8 (11.4-16.0) gm/dL Hct 38.6 (34.0-46.0) % Plt Count 265 (150-450) k/uL Comprehensive Metabolic Panel 01/12/24 Range/Units 03:30 Sodium 143 (137-145) mmol/L Potassium 4.1 (3.5-5.1) mmol/L Chloride 110 H (98-107) mmol/L Carbon Dioxide 24 (22-30) mmol/L BUN 25 H (7-17) mg/dL Creatinine 0.72 (0.52-1.04) mg/dL Glucose 129 H (74-99) mg/dL Calcium 9.7 (8.4-10.2) mg/dL AST 32 (14-36) U/L ALT 28 (4-34) U/L Alkaline Phosphatase 89 (38-126) U/L Total Protein 6.2 L (6.3-8.2) g/dL Albumin 3.7 (3.5-5.0) g/dL Current Medications Generic Name Dose Route Start Last Admin Trade Name Freq PRN Reason Stop Dose Admin Aspirin 325 mg 01/13/24 09:00 Aspirin 325 Mg Tab PO DAILY [facility] Carvedilol 6.25 mg 01/12/24 08:00 Carvedilol 6.25 Mg Tab PO BID-W/MEALS [facility] Heparin Sodium/Sodium Chloride 250 mls @ 10.006 mls/hr 01/12/24 06:30 01/12/24 07:11 25,000 unit/ Sodium Chloride IV 11.03 units/kg/hr .Q24H JULIETH 10.006 mls/hr Administration Protocol 11.03 UNITS/KG/HR Nitroglycerin 0.4 mg 01/12/24 06:30 Nitroglycerin Sl Tabs 0.4 Mg Tab SUBLINGUAL Q5M PRN Chest Pain Intake and Output 01/11/24 01/12/24 01/12/24 22:59 06:59 14:59 Other: Weight 90.718 kg 01/12/24 03:30 01/12/24 03:30
[2024-01-12] MEDS: ATORVASTATIN 80 MG TAB PO SCH (16:58)
[2024-01-12] MEDS: CHOLECALCIFEROL 125 MCG (5000 IU) TABLET PO SCH (20:46)
[2024-01-13 08:57] VITALS: RESP 18; TEMP 97.9
[2024-01-13] MEDS: ASPIRIN 81 MG PO SCH (08:57)
[2024-01-13] MEDS: LETROZOLE 2.5 MG TAB PO SCH (08:57)
[2024-01-13] MEDS ORDERED: CHOLECALCIFEROL 125 MCG (5000 IU) TABLET PO SCH (09:00)
[2024-01-13] MEDS ORDERED: ASPIRIN 325 MG TAB PO SCH (09:00)
--- NOTE | 2024-01-13 10:14 | CA ---
Transthoracic Echo Report Name: Ana Echeverria Age: 78 Gender: F : 1945 Exam Date: 01/12/2024 14:16 Exam Location: [facility] Ht (in): 59 Wt (lb): 200 Ordering Physician: Shanita Gonzalez Attending/Referring Phys: [id number], Lisa Senior Relationship Manager Elena Pierce, FAUSTINA Procedure CPT: Indications: LV function, lightheadedness, paroxysmal A-fib Cardiac Hx: Technical Quality: Poor, Technically difficult study Contrast 1: Definity Total Dose (mL): 2 Contrast 2: Total Dose (mL): MEASUREMENTS (Male / Female) Normal Values 2D ECHO LV Diastolic Diameter PLAX 4.3 cm 4.2 - 5.9 / 3.9 - 5.3 cm LV Systolic Diameter PLAX 3.8 cm IVS Diastolic Thickness 1.3 cm 0.6 - 1.0 / 0.6 - 0.9 cm LVPW Diastolic Thickness 1.2 cm 0.6 - 1.0 / 0.6 - 0.9 cm LV Relative Wall Thickness 0.6 RV Internal Dim ED PLAX 2.1 cm LA Systolic Diameter LX 4.2 cm 3.0 - 4.0 / 2.7 - 3.8 cm LA Volume 41.0 cm??? 18 - 58 / 22 - 52 cm??? LA Volume Index 20.6 cm???/m??? 16 - 28 cm???/m??? M-MODE Aortic Root Diameter MM 3.1 cm LA Systolic Diameter MM 4.0 cm LA Ao Ratio MM 1.3 AV Cusp Separation MM 2.0 cm DOPPLER MV Area PHT 2.5 cm??? Mitral E Point Velocity 74.0 cm/s Mitral A Point Velocity 118.7 cm/s Mitral E to A Ratio 0.6 MV Deceleration Time 299.6 ms FINDINGS Left Ventricle Left ventricular ejection fraction is estimated at 55-60 %. Mildly increased septal wall thickness. Mildly increased posterior wall thickness. Normal left ventricular systolic function with no obvious regional wall motion abnormalities. Left ventricular cavity size normal. Right Ventricle Normal right ventricular size and function. Unable to estimate the right ventricular systolic pressure. Right Atrium Normal right atrial size. Left Atrium Mildly increased left atrial diameter. Mitral Valve Structurally normal mitral valve. Trace mitral regurgitation. No mitral stenosis. Aortic Valve Trileaflet aortic valve. No aortic valve stenosis or regurgitation. Tricuspid Valve Structurally normal tricuspid valve. Trace tricuspid regurgitation. No tricuspid stenosis. Pulmonic Valve Structurally normal pulmonic valve. Trace pulmonic regurgitation. No pulmonic stenosis. Pericardium No pericardial or pleural effusion. Echo free space anterior to the right ventricle likely represents a fat pad. Aorta Normal size aortic root and proximal ascending aorta. CONCLUSIONS Diagnosis: Paroxysmal atrial fibrillation, abnormal cardiac enzymes, lightheadedness LVH with preserved systolic function Previewed by: Dr. Dane Mariee MD (Electronically Signed) Final Date: 13 January 2024 10:13
[2024-01-13 10:53] LABS: Chol/HDL Ratio 2.52 Ratio; LDL Cholesterol,Calculated 36.3 mg/dL (0.0-131.0)
[2024-01-13] MEDS: APIXABAN 5 MG TAB PO SCH (11:39)
[2024-01-13 11:40] VITALS: BP 122/80; PULSE 61
--- NOTE | 2024-01-13 13:24 | P.PN ---
Subjective HISTORY OF PRESENT ILLNESS: This is a 78-year-old female with a past medical history significant for coronary artery disease with LINING CLEANER of the RCA, pulmonary embolism, mild cardiomyopathy, hypertension, and paroxysmal atrial fibrillation. Patient follows in the office with Dr. Garcia. We have been asked to see the patient in consultation for elevated troponin. Patient examined at the bedside in the emergency room. Patient states last night she got up to use the bathroom and did not feel right. She reports feeling lightheaded. She denies having any palpitations. She called EMS. The patient's heart rate was apparently in the 140s and route to the hospital and was irregular. She converted to sinus mechanism and route to the hospital. The patient states that her symptoms all resolved by the time she got here. She denies having any chest pain or pressure. She denies having any shortness of breath. DIAGNOSTICS: - EKG reveals sinus mechanism with no signs of acute ischemia - Chest xray negative for acute process - Laboratory data: WBC 7.9. Hemoglobin 12.8. Platelet count 265. Sodium 143. Potassium 4.1. BUN 25. Creatinine 0.72. Magnesium 1.8. Troponin 0.032. 0.206. 0.454. - Current home cardiac medications include Eliquis 5 mg twice a day, Lipitor 80 mg at night, carvedilol 6.25 mg twice a day, aspirin 81 mg daily - Most recent echocardiogram obtained in March 2022 revealed ejection fraction 45 to 50%, mild MR - Cardiac catheterization history: March 2022 100% LINING CLEANER RCA with [id number] collaterals and 30% mid LAD and 30% OM 2 stenosis 01/13/2024 Patient examined this morning at the bedside. Patient currently denies chest pain or pressure. She denies shortness of breath. Vital signs are stable. Telemetry reveals sinus mechanism. Echocardiogram completed revealing ejection fraction 55 to 60% with trace TR. PHYSICAL EXAM: VITAL SIGNS: Reviewed. GENERAL: Well-developed in no acute distress. HEENT: Head is normocephalic. Pupils are equal, round. Sclerae anicteric. Mucous membranes of the mouth are moist. Neck supple. No JVD or thyromegaly LUNGS: Respirations even and unlabored. Lungs essentially clear to auscultation bilaterally. HEART: Regular rate and rhythm. S1 and S2 heard. ABDOMEN: Soft. Nondistended. Nontender. EXTREMITIES: Normal range of motion. No clubbing or cyanosis. Peripheral pulses intact. No lower extremity edema NEUROLOGIC: Awake and alert. Oriented x 3. ASSESSMENT: Lightheadedness Paroxysmal atrial fibrillation with RVR, currently maintaining sinus mechanism Elevated troponins, suspect type II HI secondary to oxygen supply/demand mismatch secondary to A-fib with RVR Coronary artery disease with LINING CLEANER of RCA, per cardiac catheterization 2021 History of pulmonary embolism with EKOS Hypertension Hyperlipidemia PLAN: Discontinue IV heparin. Resume Eliquis Continue additional cardiac medications Patient is stable for discharge home today from a cardiac standpoint Prescription sent to the pharmacy for PRN Cardizem 60 mg x 1 dose daily as needed for palpitations at home Further recommendations pending patient course Nurse practitioner note has been reviewed by physician. Signing provider agrees with the documented findings, assessment, and plan of care documented by CATTLE KNOCKER as a scribe. Objective - Vital Signs Vital signs: Vital Signs Temp 97.5 F L 01/13/24 04:00 Pulse 56 L 01/13/24 04:00 Resp 14 01/13/24 04:00 BP 131/79 01/13/24 04:00 Pulse Ox 97 01/13/24 04:00 FiO2 Intake & Output 01/12/24 01/13/24 01/13/24 18:59 06:59 18:59 Intake Total 231.139 120 Output Total 300 Balance -68.861 120 Weight 90.9 kg 90.4 kg Intake: Intake, IV Titration 231.139 Amount Heparin Sod,Pork in 0.45% 231.139 NaCl 25,000 unit In 0.45 % NaCl 1 250ml.bag @ 11. 03 UNITS/KG/HR 10.006 mls /hr IV .Q24H [facility] Rx#: [id number] Oral 120 Output: Urine 300 Other: Voiding Method Toilet - Labs CBC & Chem 7: 01/12/24 03:30 01/12/24 03:30 Labs: Abnormal Lab Results - Last 24 Hours (Table) 01/12/24 01/12/24 01/12/24 Range/Units 08:57 12:20 13:55 APTT 54.1 H (22.0-30.0) sec Troponin I 0.454 H* 0.527 H* (0.000-0.034) ng/mL
--- NOTE | 2024-01-14 10:22 | HP ---
HISTORY AND PHYSICAL CHIEF COMPLAINT: Rapid heart beating, shortness of breath and pressure in the chest. HISTORY OF PRESENT ILLNESS: Another admission for this 78-year-old female, who has had a long-standing history of hypertension and diabetes. She has had an episode of atrial fibrillation in the past. She came to the emergency room where she had experienced rapid heart beating, slight diaphoresis, and shortness of breath and slight pressure in the chest. Troponin was slightly elevated. She denied any neurologic signs or symptoms. Past medical history, family history and personal and social histories are otherwise noncontributory. She has had a history of carcinoma of the right breast without sequelae. She has also had a history of pulmonary embolism in the past. She is not allergic to any medication. MEDICATIONS: She is on Eliquis, metformin, chlorthalidone, atorvastatin, carvedilol, tramadol, letrozole, aspirin, and vitamin D. She does not smoke. PHYSICAL EXAMINATION: VITAL SIGNS: Pulse is 120. Respirations of 35. Blood pressure is normal. HEAD, EARS, EYES, NOSE, MOUTH AND THROAT: Normal. CHEST: Clear. CARDIAC EXAM: Demonstrated atrial fibrillation with a rate of around 100. ABDOMEN: Soft, nontender. EXTREMITIES: Normal. IMPRESSION: 1. Atrial fibrillation with rapid ventricular response. 2. Elevated troponin. 3. Chest pain. 4. Type 2 diabetes. PLAN: 1. Bed rest. 2. IV fluids. 3. Serial EKGs. 4. Cardiology consult. 5. Control atrial fibrillation with efforts to return to sinus rhythm. MMODL / IJN: [id number] /
--- NOTE | 2024-01-14 11:34 | DS ---
DISCHARGE SUMMARY CHIEF COMPLAINT: Atrial fibrillation with rapid ventricular response and chest pain. HISTORY OF PRESENT ILLNESS/PHYSICAL EXAM: Details of this lady's history and physical can be found in the initial workup. LABORATORY STUDIES: While she is in a hospital, she had laboratory studies, details of which can be found in the laboratory section of her chart. COURSE IN THE HOSPITAL: After admission, she was placed on bedrest, started intravenous fluids and serial EKGs. Troponin was elevated. She was seen by Cardiology. It was felt that her elevated troponin may have been related to her rapid heart rate. She was cleared for discharge and she will go home on her usual activity and we will follow up in the office. FINAL DIAGNOSES: 1. Atrial fibrillation with rapid ventricular response. 2. Chest pain. 3. Elevated troponin. 4. Type 2 diabetes. 5. History of breast cancer. OPERATIONS: None. CONSULTATION: Cardiology. She is improved. MMODL / IJN: [id number] /
--- NOTE | 2024-01-15 22:57 | DS ---
DISCHARGE SUMMARY CHIEF COMPLAINT: Palpitations, shortness of breath, and chest pressure. HISTORY OF PRESENT ILLNESS AND PHYSICAL EXAM: Details of this lady's history and physical can be found in the initial workup. LABORATORY STUDIES: While she is in the hospital, she had laboratory studies, details of which can be found in the laboratory section of her chart. COURSE IN HOSPITAL: After admission, she was placed on bedrest on intravenous fluids and she did have elevated troponins. She was seen and evaluated by Cardiology. The conclusion was that her chest discomfort was related to her atrial fibrillation with rapid ventricular response, which also contributed to the elevation of her troponins. She was stabilized and it was felt that Cardiology could be discharged her to outpatient followup. FINAL DIAGNOSES: 1. Atrial fibrillation with rapid ventricular response. 2. Chest pain. 3. Elevated troponin. 4. History of hypertension. 5. Type 2 diabetes. OPERATIONS: None. CONSULTATION: Cardiology. She is improved. MMODL / IJN: [id number] /
== END 2024-01-13 14:47 | disposition home health service (06) ==
LOC: EC 03:19 → 3SCARD 06:30
PROVIDERS: ADMIT Family Medicine; ATTEND Family Medicine
DX: I48.0 Paroxysmal atrial fibrillation (principal); R07.89 Other chest pain; R79.89 Other specified abnormal findings of blood chemistry; I25.10 Atherosclerotic heart disease of native coronary artery without angina pectoris; I42.9 Cardiomyopathy, unspecified; E11.9 Type 2 diabetes mellitus without complications; E78.5 Hyperlipidemia, unspecified; I25.82 Chronic total occlusion of coronary artery; I10 Essential (primary) hypertension; Z85.3 Personal history of malignant neoplasm of breast; Z86.711 Personal history of pulmonary embolism; Z79.811 Long term (current) use of aromatase inhibitors; Z79.01 Long term (current) use of anticoagulants; Z79.84 Long term (current) use of oral hypoglycemic drugs; Z79.82 Long term (current) use of aspirin; Z79.899 Other long term (current) drug therapy
CPT/HCPCS: 36415; 71046; 80053; 80061; 83735; 84443; 84484; 85025; 85610; 85730; 93005; 93306; 96374; 99285

== ENCOUNTER 2024-03-19 10:00 | Day surgery (SDC) | payer MEDICARE ==
[2024-03-16 09:26] VITALS: BMI 41.1
[~2024-03-19 10:00] MED LIST changes: -HEPARIN SODIUM,PORCINE 5,000 UNIT/ML 1 ML VIAL SQ ONE; -Pre Op ABX Message 1 EACH MISC MISCELLANE ONE; +ceFAZolin 1 GM in SODIUM CHLORIDE 0.9% IRRIG BTL 250 ML IRRIGATION PRN
[2024-03-19] MEDS: IV FLUID CONTINUATION 1,000 ML IV ONE (10:33)
[2024-03-19 11:04] LABS: Glucose,Whole Blood 120 mg/dL (70-110)
[2024-03-19] MEDS: HEPARIN SODIUM,PORCINE (1 ML) 2,500 UNIT in SODIUM CHLORIDE 0.9% 250 ML IRRIGATION ONE (11:14)
[2024-03-19] MEDS: ceFAZolin 2 GM in SODIUM CHLORIDE 0.9% 500 ML 500 ML IRRIGATION ONE (11:14)
[2024-03-19 12:00] LABS: Basophils # (A) 0.1 k/uL (0-0.2); Basophils % (A) 1 %; Eosinophils # (A) 0.3 k/uL (0-0.7); Eosinophils % (A) 4 %; HCT 38.9 % (34.0-46.0); HGB 12.6 gm/dL (11.4-16.0); Lymphocytes # (A) 1.6 k/uL (1.0-4.8); Lymphocytes % (A) 21 %; MCH 30.7 pg (25.0-35.0); MCHC 32.4 g/dL (31.0-37.0); MCV 94.7 fL (80.0-100.0); Mean Platelet Volume 7.2; Monocytes # (A) 0.5 k/uL (0-1.0); Monocytes % (A) 7 %; Neutrophils # (A) 5.2 k/uL (1.3-7.7); Neutrophils % (A) 66 %; Platelet Count 307 k/uL (150-450); RBC 4.11 m/uL (3.80-5.40); RDW 13.3 % (11.5-15.5); WBC 7.8 k/uL (3.8-10.6)
[2024-03-19 12:10] LABS: African American GFR (CKD) 65 (>60 ml/min/1.73 sqM); Anion Gap 7 mmol/L; Blood Urea Nitrogen 26 mg/dL (7-17); Calcium 9.8 mg/dL (8.4-10.2); Carbon Dioxide 25 mmol/L (22-30); Chloride 110 mmol/L (98-107); Glucose 126 mg/dL (74-99); Non-African American GFR(CKD) 56 (>60 ml/min/1.73 sqM); Potassium 4.1 mmol/L (3.5-5.1); Sodium 142 mmol/L (137-145)
[2024-03-19] MEDS: fentaNYL (PF) 50 MCG/1 ML VIAL IVP ONE (12:16)
[2024-03-19] MEDS: MIDAZOLAM 2 MG/2 ML VIAL IVP ONE (12:16)
[2024-03-19] MEDS: LIDOCAINE 1% INJ 10MG/ML (20 ML MDV) SQ ONE ×2 (12:20→13:02)
[2024-03-19] MEDS: IOPAMIDOL-300 100ML BTL INJ ONE ×2 (12:58)
[2024-03-19] MEDS: SODIUM CHLORIDE 0.9% 500 ML 500 ML IV ONE (13:09)
--- NOTE | 2024-03-19 14:53 | P.PCN ---
Description of Procedure: CARDIOLOGY PROCEDURE NOTE Bioprocess Development Engineer: Dr. Jimbo Garcia Procedure performed: Insertion dual chamber permanent pacemaker Site: Left subclavian Indications: Sick Sinus Syndrome, 6.7 second pauses Complications: None Blood Loss: Minimal Description of Procedure: After the risks, benefits, and alternatives of the above-mentioned procedure was explained in detail with the patient, informed consent was obtained. The patient was taken to the cardiac catheterization suite where the left subclavian area was sterily prepped and draped in the usual fashion. One percent lidocaine was used to anesthetize the left subclavian area. Twenty milliliters of Isoview 370 contrast was injected into the left antecubital vein to allow for direct visualization of the left subclavian vein under fluoroscopy. A 1.5 inch incision was made utilizing a #15 blade in the left subclavian site. Hemostasis was made complete. Electrocautery along with digital blunt dissection was utilized to dissect to the level of the pectoralis muscle fascia and create a pocket large enough to accommodate the generator. A thin walled micro puncuture needle was used to cannulate the left subclavian vein. A guide-wire was inserted through the needle into the vascular lumen under fluoroscopic guidance. The needle was removed. Another thin walled micr puncture needle was used to again cannulate the left subclavian vein. A guide-wire was inserted through the needle into the vascular lumen under fluoroscopic guidance. The needle was removed and both gu isela-wires were attached to the field. A venous sheath and dilator were advanced over the guidewire into the vascular lumen under fluoroscopic guidance. The dilator and guidewire were then removed. A right ventricular bipolar lead was inserted into the sheath and advanced under fluoroscopic guidance into the right ventricle under fluoroscopic guidance. Adequate sensing and pacing thresholds were achieved and the lead was screwed into place in the RV apex. The sheath was then torn away. The lead collar was advanced and anchored into place utilizing #0 silk suture. Next, another venous sheath and dilator were advanced under fluoroscopic guidance into the vascular lumen over the guidewire. After removal of the dilator and guidewire, a right atrial bipolar lead was inserted into this sheath and advanced under fluoroscopic guidance into the right atrium. The lead was positioned into the right atrial appendage. Adequate sensing and pacing thresholds were then achieved and the lead was screwed into place. The sheath was then torn away. The lead collar was advanced and anchored into place utilizing #0 silk suture. The leads were then inserted into the appropriate position into the generator. They were then secured with the setscrew provided. The leads and generator were inserted into the pocket with the leads posterior. The subcutaneous tissue was approximated utilizing #2.0 and 3.0 vicryl in an interrupted stitch fashion. The dermal layer was approximated utilizing #4.0 vicryl. The area was cleansed with sterile saline and dried. A sterile 4x4 dressing was applied and the patient was transferred to the post catheterization holding area in stable and satisfactory condition. The patient tolerated the procedure well. Generator Data Licensed Tax Consultant: [employer] Brand: [id number] Ayah XT DR MRI Model #: [id number] Serial#: [id number] Right Atrial Bipolar Lead Data: Type: Active fixation lead Licensed Tax Consultant: [employer] Model#: 294672 Serial Number: [id number] Right Ventricular Bipolar Lead Data: Type: Active fixation lead Licensed Tax Consultant: [employer] Model #: [id number] Serial #: [id number] Stimulation Thresholds: Right atrial bipolar lead pacing and sensing thresholds Voltage: 0.5 Impedance: 703 ohms P-wave sensin.5 mV Right Ventricular bipolar lead pacing and sensing thresholds Pulse Width: 0.4ms Voltage: 0.75 volts Impedance: 1235 ohms R-wave sensin mV Parameter Setting: Pacing mode is AAIR<=>DDDR Lower rate 60 bpm Upper rate 130 bpm Impressions: 1. Successful implantation of a dual chamber permanent pacemaker in the left pectoral site. Plan: 1. Routine post procedure care will be instituted as well as outpatient follow- up surveillance.
--- NOTE | 2024-03-19 15:27 | XR ---
EXAMINATION TYPE: XR chest 1V portable DATE OF EXAM: 03/19/2024 COMPARISON: 05/11/2021 HISTORY: Lead placement check TECHNIQUE: Single frontal view of the chest is obtained. FINDINGS: There is a 2-lead cardiac pacemaker which appear to be in satisfactory position. There is no pneumothorax or pleural effusion. The heart and pulmonary vasculature are normal. There i s no definite lung consolidation IMPRESSION: 1. Placement of a 2-lead cardiac pacemaker which appears in satisfactory position. No pneumothorax. 2 no definite acute cardiopulmonary disease. [facility], , 03/19/2024 3:25 PM
[2024-03-19] MEDS: SODIUM CHLORIDE 0.9% 1,000 ML IV SCH (16:45)
[2024-03-19 16:58] LABS: Glucose,Whole Blood 213 mg/dL (70-110)
[2024-03-19 20:02] LABS: Glucose,Whole Blood 146 mg/dL (70-110)
[2024-03-19] MEDS: ACETAMINOPHEN TAB 325 MG TAB PO PRN (21:08)
[2024-03-20 05:27] LABS: Glucose,Whole Blood 133 mg/dL (70-110)
[2024-03-20 08:26] VITALS: BP 143/81; PULSE 68; RESP 17; TEMP 97.8
--- NOTE | 2024-03-20 15:53 | P.DS ---
Providers Attending physician: Jimbo Garcia DO Primary care physician: Chadwick Coe [place] [facility] Course: Patient is pleasant 78-year-old female with history of atrial fibrillation, sick sinus syndrome with 6.7 second pause and lightheadedness who presented for elective pacemaker. Patient had dual-chamber permanent pacemaker placed on 03/19/2024. She did well postoperatively with no significant hematoma and normally functioning pacemaker interrogation 03/20/2024. Patient will be discharged home with Helquist to be resumed 03/21/2024. Plan - Discharge Summary Discharge Rx Participant: Yes New Discharge Prescriptions: No Action carvediloL [Coreg] 3.125 mg PO BID Letrozole [Femara] 2.5 mg PO DAILY Apixaban [Eliquis] 5 mg PO BID-W/MEALS metFORMIN HCL [Glucophage] 500 mg PO DAILY Naproxen Sodium [Aleve] 440 mg PO W/BRKFST Cholecalciferol (Vitamin D3) [Vitamin D3 (125 MCG = 5,000 IU)] 125 mcg PO DAILY Aspirin EC [Ecotrin Low Dose] 81 mg PO DAILY Atorvastatin [Lipitor] 80 mg PO W/SUPPER Chlorthalidone [Hygroton] 25 mg PO DAILY Discharge Medication List Letrozole [Femara] 2.5 mg PO DAILY 07/24/20 [History] Apixaban [Eliquis] 5 mg PO BID-W/MEALS 04/13/22 [History] metFORMIN HCL [Glucophage] 500 mg PO DAILY 04/13/22 [History] Cholecalciferol (Vitamin D3) [Vitamin D3 (125 MCG = 5,000 IU)] 125 mcg PO DAILY 05/07/22 [History] Naproxen Sodium [Aleve] 440 mg PO W/BRKFST 05/07/22 [History] Aspirin EC [Ecotrin Low Dose] 81 mg PO DAILY 01/12/24 [History] Atorvastatin [Lipitor] 80 mg PO W/SUPPER 01/12/24 [History] carvediloL [Coreg] 3.125 mg PO BID 03/16/24 [History] Chlorthalidone [Hygroton] 25 mg PO DAILY 03/19/24 [History] Follow up Appointment(s)/Referral(s): Jimbo Garcia DO [STAFF PHYSICIAN] - 03/27/24 3:30 pm (FOLLOW UP APPOINTMENT MADE.) Patient Instructions/Handouts: Pacemaker (DC) Discharge Disposition: HOME SELF-CARE
== END 2024-03-20 10:55 | disposition home or self-care (01) ==
LOC: CATHEP 10:00 → 6NMEDSUR 13:50 → CATHEP 03-20 10:55
PROVIDERS: ATTEND Internal Medicine
DX: I49.5 Sick sinus syndrome (principal); I48.0 Paroxysmal atrial fibrillation; E11.9 Type 2 diabetes mellitus without complications; I10 Essential (primary) hypertension; E78.5 Hyperlipidemia, unspecified; I42.9 Cardiomyopathy, unspecified; Z79.01 Long term (current) use of anticoagulants; Z79.82 Long term (current) use of aspirin; Z79.84 Long term (current) use of oral hypoglycemic drugs; Z95.0 Presence of cardiac pacemaker; Z85.3 Personal history of malignant neoplasm of breast; Z79.899 Other long term (current) drug therapy; Z86.711 Personal history of pulmonary embolism
CPT/HCPCS: 33208; 80048; 82565; 85025; 71045; C1898; C1785; J2250; J1644; J0690; J2003; Q9967; J3010

== ENCOUNTER → 2024-05-10 | Outpatient (CLI) | payer MEDICARE ==
[2024-05-10 12:45] VITALS: BP 155/85; PULSE 86; RESP 18; TEMP 97.9
--- NOTE | 2024-05-10 13:11 | P.PN ---
Subjective Progress Note Date: 05/10/24 Principal diagnosis: right breast IDC [id number]; stage I Subjective Progress Note Date: 05-10-24 stage IA right breast invasive ductal cancer 2019 Ana is a 78-year-old white female who is status post right breast lumpectomy and sentinel node biopsy on 12/25/2019. The right breast revealed a 1.2 cm invasive ductal carcinoma grade 2 ER/NV positive HER-2/rohan negative G2. The margins were negative. The lymph nodes were all negative for cancer. Postprocedure she developed an open wound and has had this area packed until it healed. She has followed with medical oncology and is presently on Femara. She had a bilateral mammogram in This was benign BIRADS 2. She did not have radiation therapy. She continues on femara. Oncotype 5 She is not concerned about any new lumps masses or nodules in either breast. She was diagnosed with bilateral pulmonary emboli in April 2021. It was necessary that she receive IV heparin for this. She was in the hospital for 5 days. She did receive the Maderna booster about one month prior to the PE. she's been diagnosed with diabetes and has had a myocardial infarction and atrial fibrillation. 05-10-24 Since last seen had some trouble with her AFIB. She has a pacemaker placed on March 19, 2024. She is not complaining of any new lumps masses or nodules in either breast. She has had fungal infection under her breast several times since last seen. She has some evidence of infection at this time under her right breast. Her diagnosed wtih emphysema and AFib with exacerbation recently. Family history: Mother: Breast cancer at 68 Father: Colon cancer Hormonal history: Menarche: 12 , breast fed;no, age at first : 22 menopause: 50 Surgical history: Right breast lumpectomy/sentinel node biopsy Cholecystectomy Appendectomy right knee replacement Hernia repair Medical history: High cholesterol Hypertension history of Pulmonary embolism atrial fib on eliquis [place] diabetic Social history: Smoke: Negative Alcohol: Negative Drugs: Negative Systems: HEENT: cataract Heart: none lungs: none GI: none : none Musculoskeletal: Arthritis Psychiatric: Negative ALLERGIES: Negative Hematologic: baby aspirin daily Objective - Vital Signs Vital signs: Vital Signs Temp 97.9 F 05/10/24 12:43 Pulse 86 05/10/24 12:43 Resp 18 05/10/24 12:43 BP 155/85 05/10/24 12:43 Pulse Ox 98 05/10/24 12:43 FiO2 Intake & Output 05/09/24 05/10/24 05/10/24 18:59 06:59 18:59 Weight 87.543 kg - Constitutional General appearance: Present: cooperative - EENT Eyes: Present: EOMI ENT: Present: hearing grossly normal - Neck Neck: Present: normal ROM - Respiratory Respiratory: bilateral: CTA - Cardiovascular Rhythm: regular Heart sounds: normal: S1, S2 - Integumentary Integumentary: Present: normal turgor - Musculoskeletal Musculoskeletal: Present: gait normal - Psychiatric Psychiatric: Present: A&O x's 3, appropriate affect, intact judgment & insight - Additional findings Additional findings: Breast Exam: BRA: 44DD inspection: post op changes right breast; bilateral grade 3 ptosis; palpation: right breast: fibrocystic changes, postop changes, no evidence of recurrent cancer Right axilla: No adenopathy of concern Left breast: multi-positional exam fibrocystic changes no dominant masses or nodules of concern Left axilla: No adenopathy of concern Assessment and Plan Assessment: Impression: High cholesterol Hypertension history of Pulmonary embolism atrial fib on eliquis [place] diabetic right breast stage I invasive ductal cancer 2019 no evidence of recurrence bilateral mammogram 10-20-23 BIRAD 2 Plan: 1. bilateral mammogram in September 2024 with appointment at that time 2. continue with medical oncology 3. patient discussed with medical oncolgoy should be taking antihormone therapy letrazole with the history of pulmonary emboli with medical oncology/ patient has appointment (I discussed this with pharmacy the note that this could cause thromboembolic events in 1.1% of patients and pulmonary emboli in 2% of patient's; she will continue on letrazole, as per medical onoclogy CC: Dr. Vail
== END ==
LOC: WWCWWP 11:37
PROVIDERS: ATTEND Surgery
DX: C50.911 Malignant neoplasm of unspecified site of right female breast (principal); I10 Essential (primary) hypertension; I25.2 Old myocardial infarction; E78.00 Pure hypercholesterolemia, unspecified; E11.9 Type 2 diabetes mellitus without complications; R92.8 Other abnormal and inconclusive findings on diagnostic imaging of breast; I48.91 Unspecified atrial fibrillation; Z79.01 Long term (current) use of anticoagulants; Z86.711 Personal history of pulmonary embolism; Z80.3 Family history of malignant neoplasm of breast

== ENCOUNTER → 2024-10-22 | Outpatient (CLI) | payer MEDICARE ==
--- NOTE | 2024-10-22 12:18 | MM ---
Reason for Exam: Hx of breast cancer, conservation therapy. Last screening mammogram was performed 12 month(s) ago. Patient History: Menarche at age 12. First Full-Term at age 22. Postmenopausal. Breast cancer, age 74. 12/25/2019, Lumpectomy on the Right side. 12/25/2019, Malignant Core Biopsy on the right side. 10/18/2019, Malignant Core Biopsy on the right side. Mother had breast cancer, age 68. Prior Study Comparison: 05/10/2017 Bilateral Screening Mammogram, [facility]. 05/13/2017 Right Diagnostic Mammogram, [facility]. 06/08/2018 Bilateral Screening Mammogram, [facility]. 06/11/2019 Bilateral Screening Mammogram, [facility]. 10/18/2019 Right Diagnostic Mammogram, [facility]. 10/13/2020 Left Diagnostic Mammogram, [facility]. 11/12/2020 Right Diagnostic Mammogram, [facility]. 10/15/2021 Bilateral MG 3D diag mammo w/cad MIC, [facility]. 10/18/2022 Bilateral MG 3D diag mammo w/cad MIC, [facility]. 10/20/2023 Bilateral MG 3D diag mammo w/cad MIC, [facility]. Tissue Density: There are scattered areas of fibroglandular density. Findings: Analyzed By CAD. Postsurgical and posttreatment changes right breast. Anterior asymmetric density right breast does not persist on additional views. Chronic nodularity upper outer quadrant right breast. Interval placement of a left-sided pacemaker generator. There is no global asymmetry along the anterior margin of the pacemaker, most likely representing scar formation from the procedure. This can be reassessed in 6 months. Otherwise, no significant change. Overall Assessment: Probably benign, BI-RAD 3 Management: Diagnostic Mammogram of the left breast in 6 months. Results were given to the patient verbally at the time of exam. Patient should continue monthly self-breast exams. A clinical breast exam by your physician is recommended on an annual basis. This exam should not preclude additional follow-up of suspicious palpable abnormalities. [facility], , 10/22/2024 12:15 PM. Electronically signed and approved by: Arian Avila M.D. Radiologist
== END | disposition home or self-care (01) ==
LOC: RADMAMWWP 10:47
PROVIDERS: ATTEND Surgery
DX: R92.323 Mammographic fibroglandular density, bilateral breasts (principal); Z78.0 Asymptomatic menopausal state; Z80.3 Family history of malignant neoplasm of breast; Z85.3 Personal history of malignant neoplasm of breast
CPT/HCPCS: 77066; G0279; 77062

== ENCOUNTER → 2024-11-01 | Outpatient (CLI) | payer MEDICARE ==
[2024-11-01 11:00] VITALS: BP 174/79; PULSE 88; RESP 17; TEMP 98.6
--- NOTE | 2024-11-01 11:16 | P.PN ---
Subjective Progress Note Date: 11/01/24 Principal diagnosis: right breast IDC [id number]+Her2-G2; stage I, 2019 Subjective Progress Note Date: 11-01-24 Principal diagnosis: right breast IDC [id number]+Her2-G2; stage I stage IA right breast invasive ductal cancer 2019 Ana is a 78-year-old white female who is status post right breast lumpectomy and sentinel node biopsy on 12/25/2019. The right breast revealed a 1.2 cm invasive ductal carcinoma grade 2 ER/MD positive HER-2/rohan negative G2. The margins were negative. The lymph nodes were all negative for cancer. Postprocedure she developed an open wound and has had this area packed until it healed. She has followed with medical oncology and is presently on Femara. She had a bilateral mammogram in This was benign BIRADS 2. She did not have radiation therapy. She continues on femara. Oncotype 5 She is not concerned about any new lumps masses or nodules in either breast. She was diagnosed with bilateral pulmonary emboli in April 2021. It was necessary that she receive IV heparin for this. She was in the hospital for 5 days. She did receive the Maderna booster about one month prior to the PE. she's been diagnosed with diabetes and has had a myocardial infarction and atrial fibrillation. 05-10-24 Since last seen had some trouble with her AFIB. She has a pacemaker placed on March 19, 2024. She is not complaining of any new lumps masses or nodules in either breast. She has had fungal infection under her breast several times since last seen. She has some evidence of infection at this time under her right breast. Her diagnosed with emphysema and AFib with exacerbation recently. 11-01-24 Ana is a 79-year-old white female status post right breast lumpectomy and sentinel node biopsy on 12 25 19. The right breast pathology revealed a 1.2 cm invasive ductal carcinoma grade 2 ER/MD positive, HER2 negative G2. The margins were negative. The lymph nodes were negative for cancer. Postprocedure she developed an open wound and had this packed until it healed. She had a bilateral mammogram on 10 22 24 which was BI-RADS 3. This revealed an area of some changes near a recently inserted pacemaker and it was felt that a repeat left breast mammogram in 6 months should be performed. This was personally reviewed and interpreted. She did not have radiation therapy/she had an Oncotype of 5 She was treated with Femara However she was diagnosed with bilateral pulmonary emboli in April 2021; she is still on Femora She is not complaining of any new lumps masses or nodules of concern in either breast. Family history: Mother: Breast cancer at 68 Father: Colon cancer Hormonal history: Menarche: 12 , breast fed;no, age at first : 22 menopause: 50 Surgical history: Right breast lumpectomy/sentinel node biopsy Cholecystectomy Appendectomy right knee replacement Hernia repair Pacemaker placement Medical history: High cholesterol Hypertension history of Pulmonary embolism atrial fib on [place] diabetic Social history: Smoke: Negative Alcohol: Negative Drugs: Negative Systems: HEENT: cataract Heart: none lungs: none GI: none : none Musculoskeletal: Arthritis Psychiatric: Negative ALLERGIES: Negative Hematologic: baby aspirin daily Objective - Constitutional General appearance: Present: cooperative - EENT Eyes: Present: EOMI ENT: Present: hearing grossly normal - Neck Neck: Present: normal ROM - Respiratory Respiratory: bilateral: CTA - Cardiovascular Rhythm: regular Heart sounds: normal: S1, S2 - Integumentary Integumentary: Present: normal turgor - Musculoskeletal Musculoskeletal: Present: gait normal - Psychiatric Psychiatric: Present: A&O x's 3, appropriate affect, intact judgment & insight - Additional findings Additional findings: Breast Exam: BRA: 44DD inspection: post op changes right breast; bilateral grade 3 ptosis; well-healed scar from recent pacemaker placement left chest wall palpation: right breast: fibrocystic changes, postop changes, no evidence of recurrent cancer Right axilla: No adenopathy of concern Left breast: multi-positional exam fibrocystic changes no dominant masses or nodules of concern Left axilla: No adenopathy of concern Fungal infection under both breast Assessment and Plan Assessment: Impression: High cholesterol Hypertension history of Pulmonary embolism atrial fib on [place]iqu[place] diabetic right breast stage I invasive ductal cancer 2019 no evidence of recurrence bilateral mammogram 10-22-24 BIRAD 3 repeat left breast mammogram in 6 months Plan: 1. Left breast mammogram in 6 months with examination at that time, bilateral mammogram 1 year 2. continue with medical oncology 3. Patient is continuing Femara 4. nystatin as needed for fungal infection CC: Dr. Vail
== END ==
LOC: WWCWWP 10:42
PROVIDERS: ATTEND Surgery
DX: C50.911 Malignant neoplasm of unspecified site of right female breast (principal); E78.00 Pure hypercholesterolemia, unspecified; I10 Essential (primary) hypertension; I48.91 Unspecified atrial fibrillation; I21.9 Acute myocardial infarction, unspecified; E11.9 Type 2 diabetes mellitus without complications; Z86.711 Personal history of pulmonary embolism